=== PATIENT | male | born 1970 | race Caucasian/White ===

== ENCOUNTER 2020-06-26 14:29 | Emergency (ER) | payer OTHER, SELFPAY ==
[2020-06-26 14:42] VITALS: BP 143/88; PULSE 109; RESP 18; TEMP 36.7; O2SAT 98; BMI 24.2
--- NOTE | 2020-06-26 14:48 | HMH.EDUTC ---
[facility] [place] Clinical Impression: Encounter for laboratory testing for COVID-19 virus Allergic rhinitis Qualifiers: Allergic rhinitis trigger: unspecified Allergic rhinitis seasonality: unspecified Qualified Code(s): J30.9 - Allergic rhinitis, unspecified Disposition: Home, Self-Care Condition on Discharge: Good Instructions: Preventing the Spread of Coronavirus Discharge Instructions, DI for Allergic Rhinitis, Allergic Rhinitis, Loratadine, Fluticasone Nasal [place] Additional Instructions: *Monitor Temp, Over the counter Motrin or Tylenol as directed/as needed Tylenol every 4 hours and Motrin every 6 hours (as long as your family doctor has told you that you can take it) for fever or pain. and straight to ER if unable to lower temp less than 101.0 after medication given *Warm salt water gargles may help to soothe the throat *Throat Lozenges *Warm fluids like tea with honey may help to soothe the throat *Sleep elevated *Humidifier/Vaporizer *Flonase 2 sprays in each nostril daily but be aware that it may take 2-3 days before you notice improvement Follow up IMMEDIATELY for new or worsening symptoms or no Noticeable improvement over the next 48-72 hours. 911 for difficulty breathing or swallowing You was tested for today for COVID19 your test result should be back later this evening, you may call back later this evening to see if your test results are back and the result You was given a handout with instructions for Self Quarantine and Self isolation for while you wait on test results and what to do if they are positive Prescriptions: Loratadine [Claritin 10mg Tablet] 10 mg PO DAILY 30 Days #30 tab Prescription Printed Fluticasone Propionate [Flonase 50mcg nasal spray 16gm] 1 - 2 spr NS DAILY #1 bottle Prescription Printed Referrals: Adela Wharton [Primary Care Provider] - As needed Time of Disposition: 14:57 Medical Decision Making - [place]win Inquiry Pt receiving controlled substance: No [place]win was queried for this patient: No Vital Signs: 06/26/20 14:42 Temperature 98.0 F Temperature Source Oral Pulse Rate [Radial] 109 H Respiratory Rate 18 Blood Pressure [Right Arm] 143/88 H Blood Pressure Mean [Right Arm] 106 Blood Pressure Source [Right Arm] Automatic Cuff Blood Pressure Position [Right Arm] Sitting 02 Sat by Pulse Oximetry 98 Oxygen Delivery Method Room Air - Lab Data Lab results reviewed: Yes: I reviewed the patient's lab results. Orders (Tests/Meds): ORDERS Category Date Time Status Covid-19 Nasal PCR ([facility]) Routine Lab 06/26/20 14:40 Received [facility] [place] HPI - General Stated complaint: cough,headache,chills Time Seen by Provider: 06/26/20 14:48 Mode of Arrival: Ambulatory Source of Information: Patient Limitations: No Limitations Description of Symptoms (Recalled from Triage Doc. by RN): hastings, chills, wants covid test. HEENT Symptoms (Recalled from RN notes): Yes Resp Symptoms (Recalled from RN notes): No Skin Symptoms (Recalled from RN notes): No MS Symptoms (Recalled from RN notes): No Functional Status (Recalled from RN notes): wnl - History of Present Illness Provider Complaint: Patient states that he has been having headache, chills and dry scratchy sore throat States that he was worried that he may have COVID States that he was not sure if he had COVID or a head cold states that he has also had a headache on and off feeling some pressure in his ears. States that he has had clear drainage from his nose - Related Data Previous Rx's Medication Instructions Recorded Fluticasone Propionate [Flonase 1 - 2 spr NS DAILY #1 bottle 06/26/20 50mcg nasal spray 16gm] Loratadine [Claritin 10mg 10 mg PO DAILY 30 Days #30 tab 06/26/20 Tablet] Allergies Allergy/AdvReac Type Severity Reaction Status Date / Time UMKNOWN Allergy Unknown Uncoded 08/24/17 14:03 - Worker's Comp Is this a Worker's Comp case?: No [facility] History - Hepatitis A Screen Drug use hist
[2020-06-26 15:09] VITALS: BP 143/88; PULSE 109; RESP 18; TEMP 36.7; O2SAT 98
== END 2020-06-26 15:10 | disposition home or self-care (01) ==
PROVIDERS: Emergency Provider Nurse Practitioner; PCP Family Medicine
DX: Z20.828 Contact with and (suspected) exposure to other viral communicable diseases (principal); J30.9 Allergic rhinitis, unspecified; F17.210 Nicotine dependence, cigarettes, uncomplicated
CPT/HCPCS: 99201; U0003

== ENCOUNTER → 2021-06-18 12:40 | Outpatient (CLI) | payer OTHER, SELFPAY ==
--- NOTE | 2021-06-18 12:55 | MR_ITS ---
PROCEDURE: MR LUMBAR SPINE WO CON CLINICAL INDICATION: THORACIC, LUMBOSACRAL INTERVERTEBRAL DISC COMPARISON: CR [id number] LUMBAR SPINE 5 VIEWS from 05/23/2014 TECHNIQUE: Standard multiplanar multiecho sequences are performed without contrast. 3-D MIP and myelographic images are also rendered and reviewed FINDINGS: There is normal alignment. The spinal cord ends at the L2 level. There is slight reversal of the thorax sick/lumbar lordosis at the T12-L1 level. T11-T12: Mild facet hypertrophic change with mild bilateral foraminal narrowing. T12-L1: Minimal bulging disc with degenerative disc disease with canal stenosis at 10 mm. Minimal contour deformity anteriorly of the cord very slightly eccentric toward the right. Mild endplate irregularity L1-L2: Endplate irregularity of the inferior aspect of L1 L2-L3: Mild facet hypertrophic change. Minimal left lateral recess narrowing. L3-L4: Minimal bulging disc with facet and ligamentum hypertrophy with mild bilateral recess narrowing. L4-5: Moderate facet and ligamentum hypertrophic change with mild bilateral lateral recess narrowing and moderate bilateral foraminal narrowing. L5-S1: Degenerative disc disease with bulging disc and facet hypertrophic change with moderate to severe right foraminal narrowing and severe left-sided foraminal narrowing. Sagittal images demonstrates both right and left foraminal and lateral disc protrusions causing impingement upon the exiting L5 nerve roots and contributing to the foraminal narrowing. This is slightly more prominent on the left. There are type 2 endplate changes at this level and there is moderate anterior bulging of the disc as well. IMPRESSION: Abnormal MRI of the lumbar spine with multilevel lumbar spondylosis with resulting canal stenosis which is at T12-L1 and multilevel foraminal and lateral recess narrowing most severe at L5-S1. Please see above for detailed description at each level. Dictated by: Tristan Myers MD 06/19/2021 08:49 Tristan Myers MD in [place] 06/19/2021 08:49
== END ==
PROVIDERS: PCP Family Medicine; Visit Provider Nurse Practitioner Family
DX: M51.15 Intervertebral disc disorders with radiculopathy, thoracolumbar region (principal); M51.17 Intervertebral disc disorders with radiculopathy, lumbosacral region
CPT/HCPCS: 72148; 76376

== ENCOUNTER → 2021-10-14 11:59 | Outpatient (CLI) | payer OTHER, SELFPAY ==
[2021-10-15 08:29] LABS: Covid-19 Nasal PCR Sendout Lex NOT DETECTED
== END ==
PROVIDERS: Visit Provider Nurse Practitioner
DX: Z20.822 Contact with and (suspected) exposure to COVID-19 (principal)
CPT/HCPCS: C9803; U0004; U0005

== ENCOUNTER 2025-03-12 11:42 | Inpatient (IN) | payer OTHER, SELFPAY ==
[2025-03-12] VITALS (21 sets, daily range): BP systolic 98–126; BP diastolic 65–87; PULSE 68–106; RESP 15–24; TEMP 36.6–36.7; O2SAT 90–100; BMI 25.0
--- NOTE | 2025-03-12 11:39 | ECG_ITS ---
APPROVED REPORT Exam: Resting ECG HR:77 bpm ECG Measurements Heart Rate 77 AXES TN 153 P 74 QRSd 91 QRS -26 QT 434 T 62 QTc 466 Conclusion SINUS RHYTHM WITH OCCASIONAL VENTRICULAR PREMATURE COMPLEXES ANTEROSEPTAL MYOCARDIAL INFARCTION , OF INDETERMINATE AGE [40+ ms Q WAVE IN V1-V4] ABNORMAL ECG Electronically signed by : MARKO FORTE, 03/13/2025 08:38:50
--- NOTE | 2025-03-12 11:42 | XR_ITS ---
FINAL REPORT CLINICAL HISTORY: Chest/epigastric ABD pain COMPARISON: None FINDINGS: CHEST 1 VIEW The heart size is normal. The mediastinum is normal. There is no focal infiltrate or edema. There are no pleural effusions. There is no pneumothorax. There is no osseous abnormality. IMPRESSION: No acute cardiopulmonary process Reviewed, Interpreted and Dictated by Adilson Devries MD Transcribed by Paty Choi Authenticated and [facility]
--- NOTE | 2025-03-12 11:42 | ED_ITS ---
<Statement entered by Erma Jacobson DO - 03/12/25 15:43> I was consulted by the JONI, and we discussed the complexity of the problems being addressed. I approved the treatment and management plan for this patient's care in the emergency department, thus performing a substantive portion of the medical decision making. I had an interactive discussion with Dr. Lundberg with cardiology given EKG changes, though no acute STEMI, and elevated troponin. This story that the patient gives this for her symptoms is also very concerning. He elected to take the patient to [employer] [facility] [facility] emergently Erma Jacobson DO Discharge Plan Disposition Patient Disposition: Admitted Condition: Fair Clinical Impressions Clinical Impression: Acute non-ST elevation myocardial infarction (NSTEMI) Discharge ED Provider: Erma Jacobson General Adult HPI <ALBA Slaughter - Last Filed: 03/12/25 14:38> General Chief complaint: Chest Pain Stated complaint: Acid Reflux Time Seen by Provider: 03/12/25 11:44 History of Present Illness HPI narrative: Patient presents for evaluation of chest pain. Patient states that he acutely began having chest pain located substernally/epigastrically last night however it went away. Said it lasted for several hours. However when he woke up this morning around 9 it was back and has been persistent all day. Patient reports that he does not have a known cardiovascular history but does have a history of COPD GERD alcohol abuse seasonal allergies chronic pain. He states the pain does not radiate and is making him nauseous. He reports that he was recently incarcerated and been off of all of his medications for the last 2 weeks. Last drink was prior to his incarceration. He denies any fever chills hemoptysis hematochezia melena shortness of breath vomiting or diarrhea. Related Data Home Medications ?Medication ?Instructions ?Recorded ?Confirmed albuterol sulfate 90 mcg/actuation 2 puff inhalation Q 4HP PRN 03/12/25 03/12/25 aerosol inhaler (Ventolin HFA) Shortness Of Breath budesonide-formoterol HFA 160 2 puff inhalation BID 03/12/25 mcg-4.5 mcg/actuation aerosol inhaler (Symbicort) cyclobenzaprine 10 mg tablet 10 mg PO BIDP PRN Back Pa in 03/12/25 03/12/25 duloxetine 30 mg capsule,delayed 30 mg PO DAILY 03/12/25 release fluticasone propionate 50 1 spray intranasal DAILY 03/3003/12/25 mcg/actuation nasal spray,suspension mirtazapine 30 mg tablet 30 mg PO HS 03/12/25 5 omeprazole 20 mg capsule,delayed 20 mg PO DAILY 03/12/25 release paroxetine HCl 10 mg tablet 10 mg PO DAILY 03/12/25 Allergies Allergy/AdvReac Type Severity Reaction Status Date / Time No Known Allergies Allergy Verified 03/12/25 11:56 [facility] <ALBA Slaughter - Last Filed: 03/12/25 14:38> [facility] Disclaimer: The information contained in this section may have been updated after the patient was seen, as this information can be updated by other users. Social History Smoking Status: Current every day smoker tobacco type: cigarettes packs per day: 1 second hand exposure: Yes alcohol intake: never current occupational status: employed Travel in the last 8 weeks?: None Have you lived/traveled outside [place] in past 30 days?: No Contact w/someone who lives/traveled outside [place] past 30 days?: No Exposure to someone with infectious disease in past 14 days?: No Do you have a fever (greater than 100.4 F or 38 C)?: No Have you tested positive for COVID-19?: No Exposed to someone with COVID-19 in past 14 days?: No Do you have a sore throat?: No Do you have a cough?: No Do you have any weakness?: No Do you have any diarrhea?: No Are you experiencing any unusual bleeding?: No Do you have any muscle aches/pain?: No Do you have any abdominal pain?: No Are you experiencing loss of taste or smell?: No <ALBA Slaughter - Last Filed: 03/12/25 14:38> ROS Obtained: Yes Systems reviewed as appropriate & no additional complaints except as documented Physical Exam <ALBA Slaughter - Last Filed: 03/12/25 14:38> General General appearance: alert Respiratory Respiratory exam: Present normal lung sounds bilaterally Cardiovascular Cardiovascular exam: Present regular rate Neurological Exam Neurological exam: Present alert and oriented X3 Medical Decision Making <ALBA Slaughter - Last Filed: 03/12/25 14:38> Medical Records Medical records reviewed: Yes I reviewed the patient's medical records. Screening: Per USPSTF and CDC recommendations, given the prevalence of disease in our region, it is our hospital?s policy to screen for HIV and viral Hepatitis for all patients aged 18 and over and those with ongoing risk factors. [facility] Inquiry Pt receiving controlled substance: No Vital Signs: 03/12/25 11:49 03/12/25 12:39 Temperature 97.8 F 98.0 F Temperature Source Oral Oral Pulse Rate 68 Pulse Rate [Right] 76 Respiratory Rate 16 20 Blood Pressure 121/81 Blood Pressure [Right Arm] 103/66 L Blood Pressure Mean [Right Arm] 78 Blood Pressure Source Automatic Cuff Blood Pressure Source [Right Arm] Automatic Cuff Blood Pressure Position [Right Arm] Sitting 02 Sat by Pulse Oximetry 98 Oxygen Delivery Method Room Air Nasal Cannula Lab Data Lab results reviewed: Yes I reviewed the patient's lab results. Lab Results 03/12/25 13:29: Activated Clotting Time 338 H* 03/12/25 Unknown 03/12/25 Unknown Orders (Tests/Meds): ED MEDICATIONS Generic Name Dose Route Start Last Admin Trade Name Freq PRN Reason Stop Dose Admin Acetaminophen 650 mg 03/12/25 13:58 Acetaminophen 325mg Tab PO 04/11/25 13:57 Q4HP PRN Fever or Mild Pain (1-3) Hydrocodone Bitart/Acetaminophen 1 tab 03/12/25 13:58 Hydrocodone/Apap 5/325 Mg Tablet PO 04/11/25 13:57 Q4HP PRN Moderate Pain (4-6) Hydrocodone Bitart/Acetaminophen 2 tab 03/12/25 13:58 Hydrocodone/Apap 5/325 Mg Tablet PO 04/11/25 13:57 Q4HP PRN Severe Pain (7-10) Aspirin 81 mg 03/13/25 09:00 Aspirin Ec 81mg Tablet PO 04/12/25 08:59 DAILY ALFREDO Diazepam 5 mg 03/12/25 12:31 Diazepam 5mg Tablet PO 03/13/25 00:31 ONCE PRN Anxiety Enoxaparin Sodium 40 mg 03/13/25 09:00 Enoxaparin 40mg/0.4ml Syringe SUBCUT 04/12/25 08:59 DAILY ALFREDO Fentanyl Citrate 50 mcg 03/12/25 12:31 Fentanyl 100mcg/2ml Vial IV 03/13/25 00:31 Q3MINP PRN Sedation Fentanyl Citrate 25 mcg 03/12/25 12:31 Fentanyl 100mcg/2ml Vial IV 03/13/25 00:31 Q3MINP PRN Sedation Flumazenil 0.2 mg 03/12/25 12:31 Flumazenil 0.1mg/Ml 5ml Vial IV 03/13/25 00:31 NEEDED PRN Sedation Heparin Sodium (Porcine) 5,000 unit 03/12/25 12:31 Heparin 1,000 Units/Ml 10ml Vial ([employer]) IV 03/12/25 16:31 NEEDED PRN [employer] Hydralazine HCl 20 mg 03/12/25 12:31 Hydralazine 20mg/Ml Vial IV 03/12/25 16:31 ONCE PRN sbp>160 Adenosine 180 mg/ Sodium 90 mls @ 391.905 mls/hr 03/12/25 12:31 Chloride IV 03/12/25 16:31 ONCE PRN fractional flow reserve 180 MCG/KG/MIN Adenosine 90 mg/ Sodium 90 mls @ 783.81 mls/hr 03/12/25 12:31 Chloride IV 03/12/25 16:31 ONCE PRN fractional flow reserve 180 MCG/KG/MIN Sodium Chloride 1,000 mls @ 25 mls/hr 03/12/25 12:45 Sod Chloride 0.9% 500ml Bag IV 03/13/25 12:31 .Q25H [facility] Iopamidol 225 ml 03/12/25 14:27 03/12/25 14:28 Iopamidol-370 (76%);100ml Bottle IV 03/12/25 14:28 225 ml ONCE ONE Administration Labetalol HCl 20 mg 03/12/25 12:31 Labetalol 20mg/4ml Syringe IV 03/12/25 16:31 ONCE PRN sbp>160 Lorazepam 1 mg 03/12/25 12:31 Lorazepam 2mg/Ml Vial IV 03/13/25 00:31 ONCE PRN Anxiety Midazolam HCl 1 mg 03/12/25 12:31 Midazolam 2mg/2ml Vial IV 03/13/25 00:31 Q3MINP PRN Sedation Midazolam HCl 1 mg 03/12/25 12:31 Midazolam Hcl 1mg/Ml 5ml Vial IV 03/13/25 00:31 Q3MINP PRN Sedation Miscellaneous 1 each 03/12/25 13:58 Consider Pt For Dual Antiplatelet Therapy At Discharge-Stent NOTAPPLIC 04/11/25 13:57 NEEDED PRN Reminder for s/p stent Naloxone HCl 0.4 mg 03/12/25 12:31 Naloxone 0.4mg/Ml Vial IV 03/13/25 00:31 Q5MINP PRN Decreased Respirations Nicotine 21 mg 03/12/25 14:05 Nicotine 21mg/24hr Patch TD 04/11/25 14:04 DAILYP PRN Nicotine Cravings Nitroglycerin 800 mcg 03/12/25 12:31 Nitroglycerin 800mcg/8ml Syr ([employer]) IA 03/12/25 16:31 NEEDED PRN [employer] Nitroglycerin 0.4 mg 03/12/25 13:58 Nitroglycerin 0.4mg Sl Tablet SL 04/11/25 13:57 Q5MINP PRN Chest Pain Ondansetron HCl 4 mg 03/12/25 12:31 Ondansetron 4mg/2ml Vial IV 03/13/25 00:31 NEEDED PRN Nausea Prasugrel 10 mg 03/13/25 09:00 Prasugrel 10mg Tab PO 04/12/25 08:59 DAILY ALFREDO Promethazine HCl 25 mg 03/12/25 12:31 Promethazine Hcl 25mg/Ml 1ml Vial IV 03/13/25 00:31 NEEDED PRN Nausea And Vomiting Protamine Sulfate 50 mg 03/12/25 12:31 Protamine Sulfate 50mg/5ml Vial ([employer]) IV 03/12/25 16:31 ONCE PRN act>200 Sodium Chloride 10 ml 03/12/25 12:31 Sodium Chloride 0.9% 10ml Vial IV 04/11/25 12:30 NEEDED PRN to Dilute Lorazepam inj Discontinued Medications Generic Name Dose Route Start Last Admin Trade Name Freq PRN Reason Stop Dose Admin Acetaminophen 1,000 mg 03/12/25 11:42 03/12/25 11:55 Acetaminophen 500mg Tab PO 03/12/25 11:43 1,000 mg ONCE ONE Administration Acetaminophen 650 mg 03/12/25 14:05 Acetaminophen 325mg Tab PO 04/11/25 14:04 Q4HP PRN Fever or Mild Pain (1-3) Belladonna Alkaloids 60 ml 03/12/25 11:46 03/12/25 11:56 Belladonna Alkaloids 60 Ml Ml PO 03/12/25 11:47 60 ml ONCE ONE Administration Diphenhydramine HCl 50 mg 03/12/25 12:31 Diphenhydramine 50mg/Ml Vial IV 03/12/25 12:32 ONCE ONE Heparin Sodium/Sodium Chloride 3,000 unit 03/12/25 12:31 Heparin 1,000 Units/500ml Ns ([employer]) IV 03/12/25 12:32 ONCE ONE Ketorolac Tromethamine 15 mg 03/12/25 11:42 03/12/25 11:55 Ketorolac 30mg/Ml Vial IV 03/12/25 11:43 15 mg ONCE ONE Administration Lidocaine HCl 10 ml 03/12/25 12:31 Lidocaine 1% 10ml Mdv IJ 03/12/25 12:32 ONCE ONE Lidocaine HCl 10 ml 03/12/25 12:31 Lidocaine 1% 5ml Pf Vial IJ 03/12/25 12:32 ONCE ONE Morphine Sulfate 4 mg 03/12/25 12:31 Morphine 4mg/Ml Syringe IV 03/12/25 12:32 ONCE ONE Prasugrel 60 mg 03/12/25 14:00 03/12/25 14:01 Prasugrel 10mg Tab PO 03/12/25 14:01 60 mg ONCE ONE Administration Promethazine HCl 12.5 mg 03/12/25 12:00 03/12/25 12:04 Promethazine Hcl 25mg/Ml 1ml Vial IV 03/12/25 12:01 12.5 mg ONCE ONE Administration Sodium Chloride 25 ml 03/12/25 12:00 03/12/25 12:04 Sodium Chloride 0.9% 25ml Bag IV 03/12/25 12:01 25 ml ONCE ONE Administration Sodium Chloride 25 ml 03/12/25 12:31 Sodium Chloride 0.9% 25ml Bag IV 03/12/25 12:32 ONCE ONE Verapamil HCl 2.5 mg 03/12/25 12:31 Verapamil 2.5mg/Ml 2ml Vial IV 03/12/25 12:32 ONCE ONE ORDERS Category Date Time Status Cardiology Consult [Consult to Cardiology] [CONS] Cons 03/12/25 12:29 Active Routine Consult to Cardiac Rehabilitation [CONS] Routine Cons 03/12/25 13:55 Active Chest XR -- portable [XR chest portable] Stat Exams 03/12/25 11:42 Completed BNP [NT Pro Brain Natriuretic Pep.] Stat Lab 03/12/25 Completed CBC w/Auto Diff [Complete Blood Count Auto Diff] Stat Lab 03/12/25 Completed CMP [Comprehensive Metabolic Panel] Stat Lab 03/12/25 Completed Complete Blood Count Auto Diff AMLAB Lab 03/13/25 06:00 Ordered D-Dimer Stat Lab 03/12/25 Completed HIV Combo Stat Lab 03/12/25 Received Hepatitis C Ab Qual. W/ RFX Stat Lab 03/12/25 Received INR [Prothrombin Time INR] Stat Lab 03/12/25 Completed Lipase Stat Lab 03/12/25 Completed Magnesium Stat Lab 03/12/25 Completed Trop I [Troponin I] Stat Lab 03/12/25 Completed Troponin I Q3H Lab 03/12/25 14:45 Ordered Troponin I Q3H Lab 03/12/25 17:45 Ordered ECG Request NEEDED Y 03/12/25 14:00 Ordered HEART Score History (anamnesis): Moderately suspicious ECG: Non-specific disturbance Age: 45-65 years Risk factors: 3 or more risk factors Troponin: > 3x normal limit HEART Score: 7 Medical Decision Narrative: In summary patient is a 54-year-old male who presents to the emergency department for evaluation of chest pain. Patient is initially stable but with a blood pressure 103/66 heart rate 76 with normal sinus rhythm on the bedside monitor breathing 16 times a minute satting 98% on room air upon arrival, afebrile at 97.8. Physical exam is remarkable for clear breath sounds to auscultation in all 4 hancock no increased work of breathing, patient has no chest wall tenderness to palpation however he is tender to palpation in the epigastrium. The remainder of the abdomen is soft nontender no rebound or guarding no rigidity. Heart sounds are S1 is 2 regular rate and rhythm without murmurs gallops rubs or thrills.. Differential diagnosis includes ACS versus esophagitis versus GERD versus ulcer versus pancreatitis versus cholelithiasis etc. Initial workup will be conducted with hematologic labs twelve-lead EKG plain film chest x-ray. Initial interventions include Toradol Tylenol crystalloid bolus and GI cocktail. Patient received Zofran aspirin and statin via EMS. Initial workup reviewed by me and my informal interpretation of his plain film chest x-ray shows no evidence of acute pulmonary process prior to radiology read. Please see final read for formal interpretation. Twelve-lead EKG shows normal sinus rhythm with Q waves that appear to be old. There does not appear to be ST elevation. Hematologic labs significant for white count of 13.4 hemoglobin hematocrit 13.7 and 40.4 respectively with an absolute neutrophil count of 10.8, INR 1.03. D-dimer 0.58, glucose 145 AST 75 troponin is 1.35 NT proBNP is 380 total protein 5.9. Given these findings Dr. Jacobson had interactive discussion with Dr. Lundberg regarding patient presentation BRYANT and management and Dr. Lundberg has activated the [employer] and will taking him for emergent heart cath. STEMI protocol was ordered however at this point he is considered high risk NSTEMI. <Erma Jacobson, DO - Last Filed: 03/12/25 12:37> Vital Signs: 03/12/25 11:49 03/12/25 12:39 Temperature 97.8 F 98.0 F Temperature Source Oral Oral Pulse Rate 68 Pulse Rate [Right] 76 Respiratory Rate 16 20 Blood Pressure 121/81 Blood Pressure [Right Arm] 103/66 L Blood Pressure Mean [Right Arm] 78 Blood Pressure Source Automatic Cuff Blood Pressure Source [Right Arm] Automatic Cuff Blood Pressure Position [Right Arm] Sitting 02 Sat by Pulse Oximetry 98 Oxygen Delivery Method Room Air Nasal Cannula Lab Data Lab Results 03/12/25 13:29: Activated Clotting Time 338 H* Orders (Tests/Meds): ED MEDICATIONS Generic Name Dose Route Start Last Admin Trade Name Freq PRN Reason Stop Dose Admin Acetaminophen 650 mg 03/12/25 13:58 Acetaminophen 325mg Tab PO 04/11/25 13:57 Q4HP PRN Fever or Mild Pain (1-3) Hydrocodone Bitart/Acetaminophen 1 tab 03/12/25 13:58 Hydrocodone/Apap 5/325 Mg Tablet PO 04/11/25 13:57 Q4HP PRN Moderate Pain (4-6) Hydrocodone Bitart/Acetaminophen 2 tab 03/12/25 13:58 Hydrocodone/Apap 5/325 Mg Tablet PO 04/11/25 13:57 Q4HP PRN Severe Pain (7-10) Aspirin 81 mg 03/13/25 09:00 Aspirin Ec 81mg Tablet PO 04/12/25 08:59 DAILY ALFREDO Diazepam 5 mg 03/12/25 12:31 Diazepam 5mg Tablet PO 03/13/25 00:31 ONCE PRN Anxiety Enoxaparin Sodium 40 mg 03/13/25 09:00 Enoxaparin 40mg/0.4ml Syringe SUBCUT 04/12/25 08:59 DAILY [facility] Fentanyl Citrate 50 mcg 03/12/25 12:31 Fentanyl 100mcg/2ml Vial IV 03/13/25 00:31 Q3MINP PRN Sedation Fentanyl Citrate 25 mcg 03/12/25 12:31 Fentanyl 100mcg/2ml Vial IV 03/13/25 00:31 Q3MINP PRN Sedation Flumazenil 0.2 mg 03/12/25 12:31 Flumazenil 0.1mg/Ml 5ml Vial IV 03/13/25 00:31 NEEDED PRN Sedation Heparin Sodium (Porcine) 5,000 unit 03/12/25 12:31 Heparin 1,000 Units/Ml 10ml Vial ([employer]) IV 03/12/25 16:31 NEEDED PRN [employer] Hydralazine HCl 20 mg 03/12/25 12:31 Hydralazine 20mg/Ml Vial IV 03/12/25 16:31 ONCE PRN sbp>160 Adenosine 180 mg/ Sodium 90 mls @ 391.905 mls/hr 03/12/25 12:31 Chloride IV 03/12/25 16:31 ONCE PRN fractional flow reserve 180 MCG/KG/MIN Adenosine 90 mg/ Sodium 90 mls @ 783.81 mls/hr 03/12/25 12:31 Chloride IV 03/12/25 16:31 ONCE PRN fractional flow reserve 180 MCG/KG/MIN Sodium Chloride 1,000 mls @ 25 mls/hr 03/12/25 12:45 Sod Chloride 0.9% 500ml Bag IV 03/13/25 12:31 .Q25H [facility] Iopamidol 225 ml 03/12/25 14:27 03/12/25 14:28 Iopamidol-370 (76%);100ml Bottle IV 03/12/25 14:28 225 ml ONCE ONE Administration Labetalol HCl 20 mg 03/12/25 12:31 Labetalol 20mg/4ml Syringe IV 03/12/25 16:31 ONCE PRN sbp>160 Lorazepam 1 mg 03/12/25 12:31 Lorazepam 2mg/Ml Vial IV 03/13/25 00:31 ONCE PRN Anxiety Midazolam HCl 1 mg 03/12/25 12:31 Midazolam 2mg/2ml Vial IV 03/13/25 00:31 Q3MINP PRN Sedation Midazolam HCl 1 mg 03/12/25 12:31 Midazolam Hcl 1mg/Ml 5ml Vial IV 03/13/25 00:31 Q3MINP PRN Sedation Miscellaneous 1 each 03/12/25 13:58 Consider Pt For Dual Antiplatelet Therapy At Discharge-Stent NOTAPPLIC 04/11/25 13:57 NEEDED PRN Reminder for s/p stent Naloxone HCl 0.4 mg 03/12/25 12:31 Naloxone 0.4mg/Ml Vial IV 03/13/25 00:31 Q5MINP PRN Decreased Respirations Nicotine 21 mg 03/12/25 14:05 Nicotine 21mg/24hr Patch TD 04/11/25 14:04 DAILYP PRN Nicotine Cravings Nitroglycerin 800 mcg 03/12/25 12:31 Nitroglycerin 800mcg/8ml Syr ([employer]) IA 03/12/25 16:31 NEEDED PRN [employer] Nitroglycerin 0.4 mg 03/12/25 13:58 Nitroglycerin 0.4mg Sl Tablet SL 04/11/25 13:57 Q5MINP PRN Chest Pain Ondansetron HCl 4 mg 03/12/25 12:31 Ondansetron 4mg/2ml Vial IV 03/13/25 00:31 NEEDED PRN Nausea Prasugrel 10 mg 03/13/25 09:00 Prasugrel 10mg Tab PO 04/12/25 08:59 DAILY ALFREDO Promethazine HCl 25 mg 03/12/25 12:31 Promethazine Hcl 25mg/Ml 1ml Vial IV 03/13/25 00:31 NEEDED PRN Nausea And Vomiting Protamine Sulfate 50 mg 03/12/25 12:31 Protamine Sulfate 50mg/5ml Vial ([employer]) IV 03/12/25 16:31 ONCE PRN act>200 Sodium Chloride 10 ml 03/12/25 12:31 Sodium Chloride 0.9% 10ml Vial IV 04/11/25 12:30 NEEDED PRN to Dilute Lorazepam inj Discontinued Medications Generic Name Dose Route Start Last Admin Trade Name Marcin PRN Reason Stop Dose Admin Acetaminophen 1,000 mg 03/12/25 11:42 03/12/25 11:55 Acetaminophen 500mg Tab PO 03/12/25 11:43 1,000 mg ONCE ONE Administration Acetaminophen 650 mg 03/12/25 14:05 Acetaminophen 325mg Tab PO 04/11/25 14:04 Q4HP PRN Fever or Mild Pain (1-3) Belladonna Alkaloids 60 ml 03/12/25 11:46 03/12/25 11:56 Belladonna Alkaloids 60 Ml Ml PO 03/12/25 11:47 60 ml ONCE ONE Administration Diphenhydramine HCl 50 mg 03/12/25 12:31 Diphenhydramine 50mg/Ml Vial IV 03/12/25 12:32 ONCE ONE Heparin Sodium/Sodium Chloride 3,000 unit 03/12/25 12:31 Heparin 1,000 Units/500ml Ns ([employer]) IV 03/12/25 12:32 ONCE ONE Ketorolac Tromethamine 15 mg 03/12/25 11:42 03/12/25 11:55 Ketorolac 30mg/Ml Vial IV 03/12/25 11:43 15 mg ONCE ONE Administration Lidocaine HCl 10 ml 03/12/25 12:31 Lidocaine 1% 10ml Mdv IJ 03/12/25 12:32 ONCE ONE Lidocaine HCl 10 ml 03/12/25 12:31 Lidocaine 1% 5ml Pf Vial IJ 03/12/25 12:32 ONCE ONE Morphine Sulfate 4 mg 03/12/25 12:31 Morphine 4mg/Ml Syringe IV 03/12/25 12:32 ONCE ONE Prasugrel 60 mg 03/12/25 14:00 03/12/25 14:01 Prasugrel 10mg Tab PO 03/12/25 14:01 60 mg ONCE ONE Administration Promethazine HCl 12.5 mg 03/12/25 12:00 03/12/25 12:04 Promethazine Hcl 25mg/Ml 1ml Vial IV 03/12/25 12:01 12.5 mg ONCE ONE Administration Sodium Chloride 25 ml 03/12/25 12:00 03/12/25 12:04 Sodium Chloride 0.9% 25ml Bag IV 03/12/25 12:01 25 ml ONCE ONE Administration Sodium Chloride 25 ml 03/12/25 12:31 Sodium Chloride 0.9% 25ml Bag IV 03/12/25 12:32 ONCE ONE Verapamil HCl 2.5 mg 03/12/25 12:31 Verapamil 2.5mg/Ml 2ml Vial IV 03/12/25 12:32 ONCE ONE ORDERS Category Date Time Status Cardiology Consult [Consult to Cardiology] [CONS] Cons 03/12/25 12:29 Active Routine Consult to Cardiac Rehabilitation [CONS] Routine Cons 03/12/25 13:55 Active Chest XR -- portable [XR chest portable] Stat Exams 03/12/25 11:42 Completed BNP [NT Pro Brain Natriuretic Pep.] Stat Lab 03/12/25 Completed CBC w/Auto Diff [Complete Blood Count Auto Diff] Stat Lab 03/12/25 Completed CMP [Comprehensive Metabolic Panel] Stat Lab 03/12/25 Completed Complete Blood Count Auto Diff AMLAB Lab 03/13/25 06:00 Ordered D-Dimer Stat Lab 03/12/25 Completed HIV Combo Stat Lab 03/12/25 Received Hepatitis C Ab Qual. W/ RFX Stat Lab 03/12/25 Received INR [Prothrombin Time INR] Stat Lab 03/12/25 Completed Lipase Stat Lab 03/12/25 Completed Magnesium Stat Lab 03/12/25 Completed Trop I [Troponin I] Stat Lab 03/12/25 Completed Troponin I Q3H Lab 03/12/25 14:45 Ordered Troponin I Q3H Lab 03/12/25 17:45 Ordered ECG Request NEEDED Y 03/12/25 14:00 Ordered ECG Data Tracing #1: I reviewed this ECG and interpreted as documented below: Normal sinus rhythm with a ventricular rate of [address]/T wave changes in the anterior leads without acute STEMI. Q wave is present in the anterior leads ECG initial impression date: 03/12/25 ECG initial impression time: 11:42 Critical Care <ALBA Slaughter - Last Filed: 03/12/25 14:38> Critical Care Time Critical Care Time: Yes Attestation: On 03/12/25, the high probability of a clinically significant, sudden or life threatening deterioration of the following system(s) required my full and direct attention, intervention and personal management. The time I documented below is in addition to time spent performing reported procedures but includes the following listed in this critical care notation. Total Time Total Critical Care Time: 30
[2025-03-12 11:50] LABS: Hematocrit 40.4 % (42.0-52.0); Hemoglobin 13.7 g/dL (14.1-18.0); Immature Granulocytes % 1.0 %; Mean Corpuscular HGB Conc 33.9 g/dL (31.8-35.4); Mean Corpuscular Hemoglobin 30.4 pg (27.0-31.2); Mean Corpuscular Volume 89.8 fl (80-94); Nucleated Red Blood Cells % 0 %; Platelet Count 255 K/mm3 (142-424); Red Blood Count 4.50 M/mm3 (4.60-6.20); Red Cell Distribution Width-SD 42.7 fL; White Blood Count 13.4 K/mm3 (4.8-10.8)
[2025-03-12] MEDS: KETOROLAC 30MG/ML VIAL 15 MG IV (11:55)
[2025-03-12] MEDS: ACETAMINOPHEN 500MG TAB 1000 MG PO (11:55)
[2025-03-12] MEDS: BELLADONNA ALKALOIDS 60 ML ML PO (11:56)
[2025-03-12 12:00] LABS: INR 1.03 (0.9-1.1); Prothrombin Time 11.4 seconds (10.1-12.5)
--- OUTSIDE RECORDS SUMMARY | 2025-03-12 12:03 | XMS_ITS | Data Portability ---
Author Organization [facility] Address [address] [address] Assessment No assessment recorded. Plan of Treatment Reminders Order Date Submit Date Provider Last Modified By Organization Details Last Modified Time Details Appointments None recorded. Lab drug screen, urine 2024 025 [place] [facility]), [address] [place], [address], 5 15:07:27 unlisted lab - gabapentin, urine 2024 025 [place] [facility]), [address] [facility], [place], [address], 5 15:07:27 lipid panel, serum 2023 024 [facility], [address], [place], [address], 4 06:50:58 CMP, serum or plasma 2023 024 [facility], [address], [place], [address], 4 06:50:59 RPR (rapid plasma reagin), serum 2023 024 [facility], [address], [place], [address], 4 06:51:03 drug screen, urine 2023 024 [place] [facility], [address], [place], [address], 4 13:47:47 CBC w/ auto diff 2023 024 [place] [facility], [address], [place], [address], 4 06:51:00 PSA, serum or plasma 2023 024 [place] [facility], [address], [place], [address], 4 06:51:02 hepatitis C virus Ab, serum 2023 024 [facility], [address], [place], [address], 4 06:51:01 HIV 1+2 Ab + HIV1 p24 Ag, quantitativ e immunoassay , serum 2023 024 [place] [facility], [address], [place], [address], 4 06:51:01 Referral None recorded. Procedures None recorded. Surgeries None recorded. Imaging None recorded. Medication Orders omeprazole 20 mg capsule,del ayed release 2024 025 [facility], [address] [place] [address], [address], 5 15:34:16 Remeron 30 mg tablet 2024 025 [facility], [address] [place] [address], [address], 5 17:34:02 paroxetine 10 mg tablet 2024 025 [facility], [address] [place] [address], [address], 5 17:34:03 Symbicort 160 mcg-4.5 mcg/actuati on HFA aerosol inhaler 2024 025 [facility], [address] [place] [address], [address], 5 17:34:03 ProAir HFA 90 mcg/actuati on aerosol inhaler 2024 025 [facility], [address] [place] [address], [address], 5 17:34:01 omeprazole 20 mg capsule,del ayed release 2023 024 [facility], [address] [place] [address], [address], 4 17:58:47 Remeron 30 mg tablet 2023 024 [facility], [address] [place] [address], [address], 4 12:16:52 paroxetine 10 mg tablet 2023 024 [facility], [address] [place] [address], [address], 4 12:16:52 Symbicort 160 mcg-4.5 mcg/actuati on HFA aerosol inhaler 2023 024 [facility], [address] [place] [address], [address], 4 12:16:51 ProAir HFA 90 mcg/actuati on aerosol inhaler 2023 024 [facility], [address] [place] [address], [address], 4 12:16:53 cyclobenzap rine 10 mg tablet 2023 024 [facility], [facility] [place], [address], 4 12:16:50 gabapentin 300 mg capsule 2023 024 [facility], [facility] [place], [address], 4 17:58:47 omeprazole 20 mg capsule,del ayed release 2023 024 [facility], [address] [place], [address], 4 11:50:40 Remeron 30 mg tablet 2023 024 [facility], [address] [place], [address], 4 12:34:49 paroxetine 10 mg tablet 2023 024 [facility], [address] [place], [address], 4 12:34:48 Symbicort 160 mcg-4.5 mcg/actuati on HFA aerosol inhaler 2023 024 [facility], [address] [place], [address], 4 15:28:20 ProAir HFA 90 mcg/actuati on aerosol inhaler 2023 024 [facility], [address] [place], [address], 4 12:34:47 cyclobenzap rine 10 mg tablet 2023 024 [facility], [address] [place] [facility] [place], [address], 4 12:34:49 omeprazole 20 mg capsule,del ayed release 2023 024 [place] [facility], [address], [place], [address], 4 17:18:08 Zofran 4 mg tablet 2023 024 [email or web address], [address], [place], [address], 5 14:21:44 Remeron 30 mg tablet 2023 024 [place] [facility], [address], [place], [address], 4 16:01:51 paroxetine 10 mg tablet 2023 024 [place] [facility], [address], [place], [address], 4 16:01:52 Symbicort 160 mcg-4.5 mcg/actuati on HFA aerosol inhaler 2023 024 [place] [facility], [address], [place], [address], 4 16:01:53 ProAir HFA 90 mcg/actuati on aerosol inhaler 2023 024 [place] [facility], [address], [place], [address], 4 16:01:50 cyclobenzap rine 10 mg tablet 2023 024 [place] [facility], [address], [place], [address], 4 16:01:54 Flonase Allergy Relief 50 mcg/actuati on nasal spray,suspe nsion 2023 024 [place] [facility], [address], [place], [address], 4 16:01:51 omeprazole 20 mg capsule,del ayed release 2022 023 [place] [facility], [address], [place], [address], 3 14:01:17 Remeron 30 mg tablet 2022 023 [place] [facility], [address], [place], [address], 3 14:01:12 ProAir HFA 90 mcg/actuati on aerosol inhaler 2022 023 [place] [facility], [address], [place], [address], 3 14:01:10 Symbicort 160 mcg-4.5 mcg/actuati on HFA aerosol inhaler 2022 023 [place] [facility], [address], [place], [address], 3 14:01:15 cyclobenzap rine 10 mg tablet 2022 023 [place] [facility], [address], [place], [address], 3 14:01:20 duloxetine 30 mg capsule,del ayed release 2022 023 [email or web address], [address], [place], [address], 4 16:25:11 Patient TargetsNo targets recorded. Patient InstructionsNo instructions recorded. Reason for Referral None Reported. Results Created Date Observation Date Name Description Value Unit Range Abnormal Flag Note LastModifiedBy Organization Detail LastModifiedTime 01/18/20 24 01/19/2024 LIPID PANEL , STAND NABILA cholesterol, total 196 mg/dL <200 normal Not Available [facility] [place] [facility] [address] [facility], [place], [address], 01/19/2024 11:02:26 01/18/20 24 01/19/2024 LIPID PANEL , STAND NABILA HDL cholesterol 61 mg/dL > or = 40 normal Not Available [facility] [place] [facility] [address] [facility], [place], [address], 01/19/2024 11:02:26 01/18/20 24 01/19/2024 LIPID PANEL , STAND NABILA triglyceride s 78 mg/dL <150 normal Not Available [facility] [place] [facility] [address] [facility], [place], [address], 01/19/2024 11:02:26 01/18/20 24 01/19/2024 LIPID PANEL , STAND NABILA LDL-choleste rol 118 mg/dL _(selvin c) high Refer ence range : <100 James able range <100 mg/dL for prima ry preve ntion ; <70 mg/dL for patie nts with CHD or diabe tic patie nts with > or = 2 CHD risk facto rs. LDL-C is now calcu lated using the Harmony n-Hop kins calcu latio n, which is a valid ated novel kennedyo lauren ruiz r accur acy than the Fried john equat ion in the estim ation of LDL-C . Harmony RUDOLPH et al. KENNEDY. 2013; 310(1 9): 2061- 2068 (http ://ed ucati on.Qu estDi Zemantas. com/f aq/FA Q164) Not Available [facility] [place] [facility] [address] [facility], [place], [address], 01/19/2024 11:02:26 01/18/20 24 01/19/2024 LIPID PANEL , STAND NABILA chol/HDLC ratio 3.2 (calc ) <5.0 normal Not Available [facility] [place] [facility] [address] [facility] [place], [address], 01/19/2024 11:02:26 01/18/20 24 01/19/2024 LIPID PANEL , STAND NABILA non HDL cholesterol 135 mg/dL _(selvin c) <130 high For patie nts with diabe herminia plus 1 major ASCVD risk facto r, treat ing to a non-H DL-C goal of <100 mg/dL (LDL- C of <70 mg/dL ) is consi dered a thera peuti c optio n. Not Available [facility] [place] [facility] [address] [facility] [place], [address], 01/19/2024 11:02:26 01/18/20 24 01/19/2024 COMPR EHENS SAM METAB OLIC PANEL glucose 98 mg/dL 65-99 normal Fasti ng refer ence inter sherley Not Available [facility] [address] [facility] [place], [address], 01/19/2024 11:02:27 01/18/20 24 01/19/2024 COMPR EHENS SAM METAB OLIC PANEL urea nitrogen (BUN) 13 mg/dL 7-25 normal Not Available [facility] [address] [facility] [place], [address], 01/19/2024 11:02:27 01/18/20 24 01/19/2024 COMPR EHENS SAM METAB OLIC PANEL creatinine 1.06 mg/dL 0.70-1 .30 normal Not Available [facility] [address] [facility] [place], [address], 01/19/2024 11:02:27 01/18/20 24 01/19/2024 COMPR EHENS SAM METAB OLIC PANEL eGFR 83 mL/mi n/1.7 3m2 > or = 60 normal Not Available [facility] [place] [facility] [address] [facility] [place], [address], 01/19/2024 11:02:27 01/18/20 24 01/19/2024 COMPR EHENS SAM METAB OLIC PANEL BUN/creatini ne ratio SEE NOTE: (calc ) 6-22 Not Repor mauricio: BUN and Creat inine are withi n refer ence range . Not Available [facility] [address] [facility], [place], [address], 01/19/2024 11:02:27 01/18/20 24 01/19/2024 COMPR EHENS SAM METAB OLIC PANEL sodium 137 mmol/ L 135-14 6 normal Not Available [facility] [address] [facility] [place], [address], 01/19/2024 11:02:27 01/18/20 24 01/19/2024 COMPR EHENS SAM METAB OLIC PANEL potassium 4.8 mmol/ L 3.5-5. 3 normal Not Available [facility] [address] [facility], [place], [address], 01/19/2024 11:02:27 01/18/20 24 01/19/2024 COMPR EHENS SAM METAB OLIC PANEL chloride 102 mmol/ L 98-110 normal Not Available [facility] [address] [facility], [place], [address], 01/19/2024 11:02:27 01/18/20 24 01/19/2024 COMPR EHENS SAM METAB OLIC PANEL carbon dioxide 28 mmol/ L 20-32 normal Not Available [facility] [address] [facility] [place], [address], 01/19/2024 11:02:27 01/18/20 24 01/19/2024 COMPR EHENS SAM METAB OLIC PANEL calcium 9.4 mg/dL 8.6-10 .3 normal Not Available [facility] [address] [facility] [place], [address], 01/19/2024 11:02:27 01/18/20 24 01/19/2024 COMPR EHENS SAM METAB OLIC PANEL protein, total 6.5 g/dL 6.1-8. 1 normal Not Available [facility] [address] [place], [address], 01/19/2024 11:02:27 01/18/20 24 01/19/2024 COMPR EHENS SAM METAB OLIC PANEL albumin 4.2 g/dL 3.6-5. 1 normal Not Available [facility] [address] [place], [address], 01/19/2024 11:02:27 01/18/20 24 01/19/2024 COMPR EHENS SAM METAB OLIC PANEL globulin 2.3 g/dL_ (calc ) 1.9-3. 7 normal Not Available [facility] [address], [place], [address], 01/19/2024 11:02:27 01/18/20 24 01/19/2024 COMPR EHENS SAM METAB OLIC PANEL albumin/glob ulin ratio 1.8 (calc ) 1.0-2. 5 normal Not Available [facility] [address] [place], [address], 01/19/2024 11:02:27 01/18/20 24 01/19/2024 COMPR EHENS SAM METAB OLIC PANEL bilirubin, total 0.5 mg/dL 0.2-1. 2 normal Not Available [facility] [address], [place], [address], 01/19/2024 11:02:27 01/18/20 24 01/19/2024 COMPR EHENS SAM METAB OLIC PANEL alkaline phosphatase 61 U/L 35-144 normal Not Available [facility] [facility] [address], [place], [address], 01/19/2024 11:02:27 01/18/20 24 01/19/2024 COMPR EHENS SAM METAB OLIC PANEL AST 12 U/L 10-35 normal Not Available [facility] [place] [facility] [address] [place], [address], 01/19/2024 11:02:27 01/18/20 24 01/19/2024 COMPR EHENS SAM METAB OLIC PANEL ALT 8 U/L 9-46 low Not Available [facility] [place] [facility] [address], [place], [place], [address], 01/19/2024 11:02:27 01/18/20 24 01/19/2024 CBC (INCL UDES DIFF/ PLT) white blood cell count 6.6 thous and/u L 3.8-10 .8 normal Not Available [facility] [place] [facility] [address], [place], [address], 01/19/2024 06:51:00 01/18/2001/19/2024 CBC (INCL UDES DIFF/ PLT) red blood cell count 5.08 nathan on/uL 4.20-5 .80 normal Not Available [facility] [place] [facility] [address], [place], [place], [address], 01/19/2024 06:51:00 01/18/2001/19/2024 CBC (INCL UDES DIFF/ PLT) hemoglobin 14.9 g/dL 13.2-1 7.1 normal Not Available [facility] [place] [facility] [address], [place], [place], [address], 01/19/2024 06:51:00 01/18/2001/19/2024 CBC (INCL UDES DIFF/ PLT) hematocrit 44.4 % 38.5-5 0.0 normal Not Available [facility] [place] [facility] [address], [place], [place], [address], 01/19/2024 06:51:00 01/18/2001/19/2024 CBC (INCL UDES DIFF/ PLT) MCV 87.4 fL 80.0-1 00.0 normal Not Available [facility] [place] [facility] [address] [facility] [place], [address], 01/19/2024 06:51:00 01/18/20 24 01/19/2024 CBC (INCL UDES DIFF/ PLT) MCH 29.3 pg 27.0-3 3.0 normal Not Available [facility] [address] [facility] [place], [address], 01/19/2024 06:51:00 01/18/2001/19/2024 CBC (INCL UDES DIFF/ PLT) MCHC 33.6 g/dL 32.0-3 6.0 normal Not Available [facility] [address] [facility] [place], [address], 01/19/2024 06:51:00 01/18/2001/19/2024 CBC (INCL UDES DIFF/ PLT) RDW 12.9 % 11.0-1 5.0 normal Not Available [facility] [place] [facility] [address] [facility], [place], [address], 01/19/2024 06:51:00 01/18/2001/19/2024 CBC (INCL UDES DIFF/ PLT) platelet count 286 thous and/u L 140-40 0 normal Not Available [facility] [address] [facility] [place], [address], 01/19/2024 06:51:00 01/18/2001/19/2024 CBC (INCL UDES DIFF/ PLT) MPV 9.4 fL 7.5-12 .5 normal Not Available [facility] [address] [facility] [place], [address], 01/19/2024 06:51:00 01/18/2001/19/2024 CBC (INCL UDES DIFF/ PLT) absolute neutrophils 3056 cells /uL 1500-7 800 normal Not Available [facility] [place] [facility] [address], [place], [address], 01/19/2024 06:51:00 01/18/20 24 01/19/2024 CBC (INCL UDES DIFF/ PLT) absolute lymphocytes 2930 cells /uL 850-39 00 normal Not Available [facility] [place] [facility] [address], [place], [address], 01/19/2024 06:51:00 01/18/2001/19/2024 CBC (INCL UDES DIFF/ PLT) absolute monocytes 442 cells /uL 200-95 0 normal Not Available [facility] [place] [facility] [address], [place], [address], 01/19/2024 06:51:00 01/18/2001/19/2024 CBC (INCL UDES DIFF/ PLT) absolute eosinophils 132 cells /uL 15-500 normal Not Available [facility] [place] [facility] [address], [place], [address], 01/19/2024 06:51:00 01/18/2001/19/2024 CBC (INCL UDES DIFF/ PLT) absolute basophils 40 cells /uL 0-200 normal Not Available [facility] [place] [facility] [address], [place], [address], 01/19/2024 06:51:00 01/18/2001/19/2024 CBC (INCL UDES DIFF/ PLT) neutrophils 46.3 % normal Not Available [facility] [place] [facility] [address], [place], [address], 01/19/2024 06:51:00 01/18/2001/19/2024 CBC (INCL UDES DIFF/ PLT) lymphocytes 44.4 % normal Not Available [facility] [place] [facility] [address], [place], [address], 01/19/2024 06:51:00 01/18/20 24 01/19/2024 CBC (INCL UDES DIFF/ PLT) monocytes 6.7 % normal Not Available [facility] [place] [facility] [address] [place], [address], 01/19/2024 06:51:00 01/18/2001/19/2024 CBC (INCL UDES DIFF/ PLT) eosinophils 2.0 % normal Not Available [facility] [place] [facility] [address] [place], [address], 01/19/2024 06:51:00 01/18/20 24 01/19/2024 CBC (INCL UDES DIFF/ PLT) basophils 0.6 % normal Not Available [facility] [place] [facility] [address] [place], [address], 01/19/2024 06:51:00 01/18/20 24 01/20/2024 HEPAT ITIS C AB W/REF L TO HCV RNA, QN, PCR hepatitis C antibody NON-RE ACTIVE non-re active normal HCV antib josé miguel was non-r eacti ve. There is no labor atory evide nce of HCV infec tion. In most cases , no furth er actio n is requi red. Howev er, if recen t HCV expos ure is suspe cted, a test for HCV RNA (test code 84610 ) is sugge sted. For addit ional infor carlos n plejannie e refer to http: //[facility] veraque stdia gnost ics.c om/fa q/FAQ 22v1 (This link is being provi ded for infor carlos wyatt/ educa gaye l purpo ses only. ) Not Available [facility] [place] [facility] [address] [place], [address], 01/20/2024 01:24:05 01/18/2001/20/2024 HIV 1/2 ANTIG EN/AN TIBOD Y,FOU RTH GENER ATION W/RFL HIV Ag/Ab, 4TH gen NON-RE ACTIVE non-re active normal HIV-1 antig en and HIV-1 /HIV- 2 antib odies were not detec mauricio. There is no labor atory evide nce of HIV infec tion. PLEAS E NOTE: This infor matio n has been discl osed to you from recor ds whose confi denti ality may be prote cted by state law. If your state requi res such prote ction , then the state law prohi bits you from luke g any furth er discl osure of the infor matio n witho ut the speci fic writt en conse nt of the perso n to whom it perta ins, or as other elder permi tted by law. A gener al autho rizat ion for the relea se of medic al or other infor matio n is NOT suffi cient for this purpo se. For addit ional infor matio n pleas e refer to http: //[facility] [place] stdia gnost ics.c om/fa q/FAQ 106 (This link is being provi ded for infor matio nal/ educa gaye l purpo ses only. ) The perfo rmanc e of this assay has not been clini zi valid ated in patie nts less than 2 years old. Not Available [facility] [place] [facility] [address] [facility], [place], [address], 01/20/2024 01:24:06 01/18/20 24 01/19/2024 PSA, TOTAL PSA, total 0.74 NG/mL < or = 4.00 normal The total PSA value from this assay syste m is stand ardiz ed again st the WHO stand nabila. The test resul t will be appro ximat julien 20% lower when jomar red to the equim olar- stand ardiz ed total PSA (Baron man Coult er). Jomar rison of seria l PSA resul ts shoul d be inter prete d with this fact in mind. This test was perfo rmed using the Sieme ns chemi lumin escen t metho d. Value s obtai rasta from diffe rent assay metho ds canno t be used inter donald eably . PSA level s, regar dless of value , shoul d not be inter prete d as absol kanu evide nce of the prese nce or absen ce of disea se. Not Available [facility] [address] [place], [address], 01/19/2024 14:13:36 01/18/20 24 01/19/2024 RPR (DX) W/REF L TITER AND T. PALLI DUM AB, IA RPR (DX) w/refl titer and confirmatory testing NON-RE ACTIVE non-re active normal No labor atory evide nce of syphi lis. If recen t expos ure is suspe cted, submi t a new sampl e in 2-4 weeks . Not Available [facility] [address] [place], [address], 01/19/2024 12:53:08 01/18/20 24 01/19/2024 DRUG MONIT OR, PANEL 1, W/CON F, URINE amphetamines NEGATI VE NG/mL <500 normal Not Available [facility] [place] [facility] [address] [place], [address], 01/19/2024 13:47:47 01/18/20 24 01/19/2024 DRUG MONIT OR, PANEL 1, W/CON F, URINE barbiturates NEGATI VE NG/mL <300 normal Not Available [facility] [place] [facility] [address] [place], [address], 01/19/2024 13:47:47 01/18/20 24 01/19/2024 DRUG MONIT OR, PANEL 1, W/CON F, URINE benzodiazepi chikis NEGATI VE NG/mL <100 normal Not Available [facility] [address] [place], [address], 01/19/2024 13:47:47 01/18/20 24 01/19/2024 DRUG MONIT OR, PANEL 1, W/CON F, URINE cocaine metabolite NEGATI VE NG/mL <150 normal Not Available [facility] [place] [facility] [address] [place], [address], 01/19/2024 13:47:47 01/18/20 24 01/19/2024 DRUG MONIT OR, PANEL 1, W/CON F, URINE marijuana metabolite NEGATI VE NG/mL <20 normal Not Available [facility] [address] [place], [address], 01/19/2024 13:47:47 01/18/20 24 01/19/2024 DRUG MONIT OR, PANEL 1, W/CON F, URINE methadone metabolite NEGATI VE NG/mL <100 normal Not Available [facility] [address] [place], [address], 01/19/2024 13:47:47 01/18/20 24 01/19/2024 DRUG MONIT OR, PANEL 1, W/CON F, URINE opiates NEGATI VE NG/mL <100 normal Not Available [facility] [address] [place], [address], 01/19/2024 13:47:47 01/18/20 24 01/19/2024 DRUG MONIT OR, PANEL 1, W/CON F, URINE oxycodone NEGATI VE NG/mL <100 normal Not Available [facility] [address] [place], [address], 01/19/2024 13:47:47 01/18/20 24 01/19/2024 DRUG MONIT OR, PANEL 1, W/CON F, URINE phencyclidin e NEGATI VE NG/mL <25 normal Not Available [facility] [address] [place], [address], 01/19/2024 13:47:47 05/14/01/19/2024 DRUG MONIT OR, PANEL 1, W/CON F, URINE creatinine 114.4 mg/dL > or = 20.0 normal Not Available [facility] [place] [facility] [address] [place], [address], 01/19/2024 13:47:47 01/18/20 24 01/19/2024 DRUG MONIT OR, PANEL 1, W/CON F, URINE pH 7.8 4.5-9. 0 normal Not Available [facility] [place] [facility] [address] [place], [address], 01/19/2024 13:47:47 01/18/20 24 01/19/2024 DRUG MONIT OR, PANEL 1, W/CON F, URINE oxidant NEGATI VE mcg/m L <200 normal Not Available [facility] [place] [facility] [address] [place], [address], 01/19/2024 13:47:47 01/18/20 24 01/19/2024 DRUG MONIT ORING TEMPL ATE notes and comments This drug testi ng is for medic al treat ment only. Alpa sis was perfo rmed as non-f orens ic testi ng and these resul ts shoul d be used only by healt hcare provi ders to rende r diagn osis or treat ment, or to monit or progr ess of medic al condi tions . [facility] need[facility] ng Inter preta tion rosio tance , pleas e conta ct us at 1.877 .40.R XTOX (1.87 [phone] ) M-F, 8am to 10pm EST Not Available [facility] [place] [facility] [address] [place], [address], 01/19/2024 13:47:48 11/23/19 25 11/23/2024 DRUG PROFI LE,UR ,9 DRUGS ,BUND amphetamines , urine See Final Result s NG/mL cutoff =1000 Amphe tamin e test inclu rajesh Amphe tamin e and Metha mphet amine . Not Available [facility] [address] [place], [address], 11/25/2024 15:07:27 11/23/19 25 11/23/2024 DRUG PROFI LE,UR ,9 DRUGS ,BUND barbiturate Negati ve NG/mL cutoff =300 Not Available [facility] ([facility]) [address] [place], [address], 11/25/2024 15:07:27 11/23/19 25 11/23/2024 DRUG PROFI LE,UR ,9 DRUGS ,BUND benzodiazepi chikis Negati ve NG/mL cutoff =300 Not Available [facility] ([facility]) [address] [facility], [place], [address], 11/25/2024 15:07:27 11/23/19 25 11/23/2024 DRUG PROFI LE,UR ,9 DRUGS ,BUND cannabinoid Negati ve NG/mL cutoff =50 Not Available [facility] ([facility]) [address] [place], [address], 11/25/2024 15:07:27 11/23/19 25 11/23/2024 DRUG PROFI LE,UR ,9 DRUGS ,BUND cocaine (metab.) Negati ve NG/mL cutoff =300 Not Available [facility] ([facility]) [address] [place], [address], 11/25/2024 15:07:27 11/23/19 25 11/23/2024 DRUG PROFI LE,UR ,9 DRUGS ,BUND opiates Negati ve NG/mL cutoff =300 Opiat e test inclu rajesh Codei ne and Morph ine only. Not Available [facility] ([facility]) [address] [place], [address], 11/25/2024 15:07:27 11/23/19 25 11/23/2024 DRUG PROFI LE,UR ,9 DRUGS ,BUND phencyclidin e Negati ve NG/mL cutoff =25 Not Available [facility] ([facility]) [address] [place], [address], 11/25/2024 15:07:27 11/23/19 25 11/23/2024 DRUG PROFI LE,UR ,9 DRUGS ,BUND methadone screen, urine Negati ve NG/mL cutoff =300 Not Available [facility] ([facility]) [address] [facility], [place], [address], 11/25/2024 15:07:27 11/23/19 25 11/23/2024 DRUG PROFI LE,UR ,9 DRUGS ,BUND propoxyphene , urine Negati ve NG/mL cutoff =300 Eff ectiv e December 04, 2024, this test will be disco ntinu ed. Pleas e conta ct your [facility] r[facility] repre senta tive for sugge sted repla cemen t test optio ns. Not Available [facility] ([facility]) [address] [facility], [place], [address], 11/25/2024 15:07:27 11/23/19 25 11/25/2024 DRUG PROFI LE,UR ,9 DRUGS ,BUND amphetamines Negati ve cutoff =1000 Amphe tamin e test inclu rajesh Amphe tamin e and Metha mphet amine . Not Available [facility] ([facility]) [address] [facility], [place], [address], 11/25/2024 15:07:27 11/23/19 25 11/25/2024 GABAP ENTIN , URINE gabapentin, urine Negati ve ug/mL Not Available [facility] ([facility]) [address] [facility], [place], [address], 11/25/2024 15:07:27 Result Notes None recorded. Problems Name Problem SNOMED Code Status Onset Date Resolution Date Notes Provider Name and Address Organization Details Recorded Time Mixed hyperlip idemia 857395374 Active 2021 Problem Code: E78.2; Problem Code Type: ICD-10; Not Available [facility] 22:18:14 Tobacco dependen ce caused by cigarett es 98307651466 257926 Active 2020 Problem Code: F17.210; Problem Code Type: ICD-10; Not Available [facility] 22:18:14 Gastro-e sophagea l reflux disease with esophagi tis 229357456 Active 2021 Problem Code: K21.00; Problem Code Type: ICD-10; Not Available [facility] 22:18:15 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 77458634191 9100 Active 2020 Not Available [facility] 22:18:15 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 61085448603 9105 Active 2020 Problem Code: M51.16; Problem Code Type: ICD-10; Not Available [facility] 22:18:15 Finding of general energy 146303213 Active 2021 Problem Code: R53.83; Problem Code Type: ICD-10; Not Available [facility] 22:18:15 Body mass index 20-24 - normal 476293616 Completed 202012/26/2021 Not Available [facility] 22:18:15 Chronic obstruct sam pulmonar y disease 45894319 Active 2020 Problem Code: J44.9; Problem Code Type: ICD-10; Not Available [facility] 22:18:15 Body mass index 25-29 - overweig ht 624392080 Active 2021 Problem Code: Z68.27; Problem Code Type: ICD-10; Not Available [facility] 22:18:15 Nocturia 958629405 Active 2021 Problem Code: R35.1; Problem Code Type: ICD-10; Not Available [facility] 22:18:15 Notes:*Problem Name: Encount er for general adult medical examination *ICD-10 Codes: Z00.00 *Problem Status: Chronic *Comments: RMX27Axqmr: 'Z00.0'; *Problem Code: Z00.0 *Problem Code Type: ICD-10 *Note Date: 10/01/2021 Problem Notes None recorded. Medical Equipment None Reported. Allergies No known drug allergies Medications Name Sig Start Date Stop Date Status Note LastModified by Organization Details LastModified Time cyclobenzap rine 10 mg tablet TAKE ONE TABLET BY MOUTH TWICE DAILY NEEDED FOR back pain 2024 active Not Available Not Available Not Avai lable paroxetine 10 mg tablet Take 1 tablet every day by oral route, for Depressio n. 2024 active Not Available Not Available Not Avai lable Remeron 30 mg tablet Take 1 tablet every day by oral route at bedtime. 2024 active Not Available Not Available Not Avai lable ondansetron HCl 4 mg tablet TAKE 1 TABLET EVERY 6 HOURS BY ORAL ROUTE NEEDED, FOR NAUSEA. 11/22 completed Not Available Not Available Not Available Medrol (Long) 4 mg tablets in a dose pack take by oral route as directed per package instructi ons 07/01 completed Not Available Not Available Not Available gabapentin 300 mg capsule TAKE ONE CAPSULE BY MOUTH NIGHTLY AT BEDTIME FOR back pain 2024 active Not Available Not Available Not Avai lable omeprazole 20 mg capsule,del ayed release take 1 capsule (20 mg) by oral route once daily 30 minutes to 1 hour before a meal 2024 active Not Available Not Available Not Avai lable omeprazole magnesium 20 mg tablet,surendra yed release 10/01 completed Not Available Not Available Not Available duloxetine 30 mg capsule,del ayed release Take 1 capsule every day by oral route. 10/19 completed Not Available Not Available Not Available Lyrica 75 mg capsule Take 1 capsule twice a day by oral route. 01/13 completed Not Available Not Available Not Available ProAir HFA 90 mcg/actuati on aerosol inhaler INHALE 1 - 2 PUFFS (90 - 180 MCG) BY INHALATIO N ROUTE EVERY 4 HOURS NEEDED 2024 active Not Available Not Available Not Avai lable Symbicort 160 mcg-4.5 mcg/actuati on HFA aerosol inhaler inhale 2 puffs by inhalatio n route 2 times per day in the morning and evening and rinse mouth after use 2024 active Not Available Not Available Not Avai lable Flonase Allergy Relief 50 mcg/actuati on nasal spray,suspe nsion [place] 1 spray(s) every day by intranasa l route. 2024 active Not Available Not Available Not Avai lable Flowflex COVID-19 Antigen Home Test kit DIRECTED 06/26 completed Not Available Not Available Not Available Vitals Date Recorded Body height Body mass index (BMI) Body weight Body temperature Heart rate Oxygen saturation Oxygen saturation in Arterial blood by Pulse oximetry Systolic And Diastolic Provider Name and Address Organization Details Last Updated DateTime 4 167.64 cm 22.6 kg/m2 71884.6 5 g 97.7 [degF] 89 /min 97 % 97 % 103/58 mm[Hg] [employer] 4 16:07:46 Date Recorded Body height Body mass index (BMI) Body weight Heart rate Oxygen saturation Oxygen saturation in Arterial blood by Pulse oximetry Systolic And Diastolic Provider Name and Address Organization Details Last Updated DateTime 5 167.64 cm 24.5 kg/m2 89793.0 4 g 89 /min 97 % 97 % 128/78 mm[Hg] Elaine Ram[employer] 5 14:05:04 Date Recorded Body height Body mass index (BMI) Body weight Body temperature Heart rate Oxygen saturation Oxygen saturation in Arterial blood by Pulse oximetry Systolic And Diastolic Provider Name and Address Organization Details Last Updated DateTime 4 167.64 cm 24.5 kg/m2 65355.0 4 g 98 [degF] 99 /min 98 % 98 % 118/64 mm[Hg] [employer] 4 11:23:16 Date Recorded Body height Body mass index (BMI) Body weight Body temperature Heart rate Oxygen saturation Oxygen saturation in Arterial blood by Pulse oximetry Systolic And Diastolic Provider Name and Address Organization Details Last Updated DateTime 4 167.64 cm 25.1 kg/m2 13239.6 9 g 97.7 [degF] 112 /min 97 % 97 % 115/71 mm[Hg] GIOVANNY [employer]. 4 16:55:19 Date Recorded Body height Body mass index (BMI) Body weight Body temperature Heart rate Oxygen saturation Oxygen saturation in Arterial blood by Pulse oximetry Systolic And Diastolic Provider Name and Address Organization Details Last Updated DateTime 3 167.64 cm 24.2 kg/m2 37728.8 6 g 98.3 [degF] 110 /min 98 % 98 % 128/74 mm[Hg] GIOVANNY [employer] 3 13:40:06 Social History Question Answer Notes LastModified by Organizat ion Details LastModified Time Tobacco Smoking Status Current Every Day Smoker SocialHistor yQuestion: 'Tobacco/Alc ohol/Supplem ents'; SocialHistor yResponse: 'Current Everyday Smoker'; Not Available [facility] 05/12/2022 22:55:26 Do You Have An Advance Directive? No Information not available 06/26/2022 Is Your Home Air Conditioned? Yes Information not available 06/26/2022 In The 14 Days Before Symptom Onset, Have You Had Close Contact With A Laboratory-confir med COVID-19 While That Case Was Ill? No Information not available 06/26/2022 In The 14 Days Before Symptom Onset, Have You Had Close Contact With A Person Who Is Under Investigation For COVID-19 While That Person Was Ill? No Information not available 06/26/2022 Have You Been To An Area Known To Be High Risk For COVID-19? No Information not available 06/26/2022 Are You Deaf Or Do You Have Serious Difficulty Hearing? No Information not available 06/26/2022 What Type Of Diet Are You Following? REGULAR Information not available 06/26/2022 Are There Any Guns Present In Your Home? No Information not available 06/26/2022 Do You Have A Medical Power Of Newspaper Photojournalist? No Information not available 06/26/2022 What Was The Date Of Your Most Recent Tobacco Screening? 11/22/2024 [email or web address] Information not available 11/22/2024 What Is Your Current Pack Years? 30ormorepac selins Information not available 06/26/2022 What Is Your Relationship Status? Information not available 06/26/2022 Do You Use Your Seat Belt Or Car Seat Routinely? Yes Information not available 06/26/2022 Do You Have Smoke And Carbon Monoxide Detectors In Your Home? Yes Information not available 06/26/2022 At What Age Did You Start Smoking Tobacco? 8 Information not available 06/26/2022 Are You Passively Exposed To Smoke? Yes Information no t available 06/26/2022 Are There Any Smokers In Your House? Yes Information not available 06/26/2022 How Much Tobacco Do You Smoke? 1 PPD Information not available 06/26/2022 Do You Use Sunscreen Routinely? No Information not available 06/26/2022 How Many Years Have You Smoked Tobacco? 44 Information not available 06/26/2022 Have You Recently Traveled Abroad? No Information not available 06/26/2022 Do You Have Difficulty Walking Or Climbing Stairs? No Information not available 06/26/2022 Are You Currently In School? No Information not available 06/26/2022 Do You Have Any Dietary Restrictions? No Information not available 06/26/2022 Sex: Male Functional Status Question Answer Note LastModified by Organizat ion Details LastModified Time Do you use any illicit or recreational drugs? No Information not available 06/26/2022 What is your level of alcohol consumption? None Information not available 06/26/2022 Are you currently employed? No Information not available 06/26/2022 Do you have transportation difficulties? No Information not available 06/26/2022 Do you have difficulty doing errands alone? No Information not available 06/26/2022 Do you have difficulty dressing or bathing? No Information not available 06/26/2022 Mental Status Question Answer Note LastModified by Organization D etails LastModified Time Do you have difficulty concentrating, remembering or making decisions? No Information no t available 06/26/2022 Family History Relationship Description Onset Age of this Age Resolved Age Notes LastModified by Organization Details LastModified Time Father Family history of alcoholism Relati ve: ''; [email or web address] Not available 06/26/2022 15:38:58 Unspecified Relation Family history of malignant neoplasm Relati ve: ''; [email or web address] Not available 05/12/2022 22:57:06 Unspecified Relation Family history of ischemic heart disease Relati ve: ''; [email or web address] Not available 05/12/2022 22:57:06 Notes:*Procedure Description : Documented family medical history in mother*Relative: Mother *Procedure Description: Documented family medical history in father*Relative: Father Medical History Condition Response Hospitalizations N Acid Reflux (GERD) Y Emergency room visit since last appointm ent. N High Cholesterol Y Past Encounters Encounter ID Performer Location Encounter Start Date Encounter Closed Date Diagnosis/Indication Diagnosis SNOMED-CT Code Diagnosis ICD10 Code Diagnosis Note [id number] Cristina Wright [place] [phone] 06/26/2022 15:22:51 06/26/2022 15:59:53 Radiculopathy due to lumbar intervertebral disc disorder 4635740404 27138 M51.16 D/c Gabapentin due to memory loss, and will trial Lyrica. Will send one week supply of gabapentin as he has three pills left and Lyrica will need a PA which will take a few days. I have advised him that if his memory issues progress, he needs to return to clinic for further neurologic al work-up with neurology consult and imaging of his brain. He understand s this. I also again today recommende d smoking cessation. [id number] Cristina Wright [address] [address] 01/13/2023 14:10:45 01/13/2023 16:27:07 Moderate major depression, single episode 89474651 F32.1 Chronic ob structive pulmonary disease 98077898 J44.9 Sherwin reviewed today, urine drug screen obtained, long-term controlled substance agreement resigned with patient today. We will begin the gabapentin and the Flexeril which previously worked for him. The community health worker met with him today. We will start Remeron to help with his sleep and mood and hopefully increase his appetite a bit. I have discussed with him that should he become suicidal that he can call the suicide hotline, report to the office, or the nearest emergency room. He adamantly denies suicidal ideations today. 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 Radiculopa thy due to lumbar intervertebral disc disorder 6722054137 87923 M51.16 Trial of muscle relaxants and Cymbalta. Moderate m ajor depression, single episode 98555086 F32.1 Chronic ob structive pulmonary disease 95174204 J44.9 Continue inhalers. Smoking cessation was again recommende d. Gastro-eso phageal reflux disease with esophagitis 955209521 K21.00 Refill PPI today. [id number] Cristina Wright[address] [address] 10/19/2023 15:53:43 10/19/2023 16:31:57 Moderate major depression, single episode 45748371 F32.1 Start Paxil 10 mg daily. He continues to refuse referral to MAT program and Behavioral Health. Chronic ob structive pulmonary disease 46268948 J44.9 Continue inhalers. Smoking cessation was again recommende d. Gastro-eso phageal reflux disease with esophagitis 342455065 K21.00 Refill PPI today. Zofran prn nausea. Radiculopa thy due to lumbar intervertebral disc disorder 1364111391 04350 M51.16 Continue Flexeril. [id number] [place] [phone] 01/18/2024 10:59:59 01/18/2024 11:53:01 Chronic obstructive pulmonary disease 62404640 J44.9 Continue inhalers. Smoking cessation was again recommende d. Mixed hyperlipidemia 267 304464 E78.2 Nocturia 019140871 R35.1 Hepatitis C screening 41 5181095 Z11.59 HIV screening 884985587 Z11.4 History of recreational drug use 238730210 F19.21 Radiculopa thy due to lumbar intervertebral disc disorder 4151610830 40415 M51.16 Continue Flexeril. Moderate m ajor depression, single episode 03879046 F32.1 Continue Paxil and Remeron. Gastro-eso phageal reflux disease with esophagitis 511786634 K21.00 Refill PPI today. Tobacco de pendence caused by cigarettes 0018167403 0371845 F17.210 Smoking cessation encouraged . [id number] [place] [phone] 04/05/2024 16:34:49 04/05/2024 17:37:40 Radiculopathy due to lumbar intervertebral disc disorder 2358224668 75396 M51.16 Continue Flexeril. Sherwin reviewed. UDS was NML at last visit in January. rn long term care controlled substance agreement explained and signed to begin low dose gabapentin . Moderate m ajor depression, single episode 30144695 F32.1 Continue Paxil and Remeron. Gastro-eso phageal reflux disease with esophagitis 750108702 K21.00 Refill PPI today. Chronic ob structive pulmonary disease 48879453 J44.9 Continue inhalers. Smoking cessation was again recommende d. Tobacco de pendence caused by cigarettes 0940375129 0368069 F17.210 Smoking cessation encouraged . Body mass index 25-29 - overweight 910571238 Z68.25 [id number] [place] [id number] 11/22/2024 13:50:52 11/22/2024 14:31:43 Moderate major depression, single episode 58390433 F32.1 Restart Paxil and Remeron. Gastro-eso phageal reflux disease with esophagitis 792215636 K21.00 Refill PPI today. Chronic ob structive pulmonary disease 30832745 J44.9 Continue inhalers. Smoking cessation was again recommende d. Long-term current use of drug therapy 242551631 Z79.899 Radiculopa thy co-occurrent and due to thoracic intervertebral disc disorder 9696131244 28985 M51.15 I will refer gabapentin and muscle relaxants if UDS is neg. Previous MRI has revealed severe lumbar DDD. Tobacco de pendence caused by cigarettes 1482080235 8023061 F17.210 Smoking cessation encouraged . Health Concerns Section Related Observation LastModified by Organization Detai ls LastModified Time None Recorded Concern Status LastModified by Organization Details LastModified Time None Recorded Advance Directives Directive N: Payers Insurance Date Sequence Insurance Name Policy Number Policy Martínez Covered Member ID Martínez Member ID Guarantor Name 11/21/2024 [place]MEDICAID) Cale Loera [id number] Juanito Loera 12/05/2024 1 [place] ([place]ICA[place] HMO) Cale Loera [id number] Juanito Loera 01/13/2023 1 *SELF PAY* Co rnelidavon Loera Notes Date Note Type Note Provider Name and Address Organization Details Recorded Time 04/20/2023 text/html Anxiety/Depressi onRep orted bypatient.Severity:de nies suicidal ideations;interferenc e with activities of daily living;interference with sleep Duration:symptoms lasting: (8 months) Onset/Timing:sudden Context:bereavement; of his spouse Modifying Factors:social support Associated Symptoms:denies homicidal ideations;weight loss ( lbs);eating less;depression;lonel iness;grieving;insomn ia;sleep disturbances;despair/ hopelessnessCOPDRepor mauricio bypatient.Onset/Timin g:intermittent Duration:chronic; has noted for years; attacks are infrequent Severity:mild Context:cigarette smoking Alleviating factors:relieved with bronchodilator Aggravating factors:worse with cigarette smoking;worse with exertion Associated Symptoms:dyspnea during exertion;decrease in exercise capacity;weight loss;depressionChroni c Pain Follow-upReported bypatient.Location:lo cation: (Lumbar spine); radiating (Bilateral lower extremities) Quality:aching; tingling; burning Pain Severity:average pain /10; worst pain 9/10; frequency: Alleviating factors:heat therapy; cold therapy; NSAIDS; Gabapentin Aggravating Factors:movement Analgesia:taking pain medication ADL Improvements:physical ly functioning; able to maintain relationships;mood affected;sleep patterns disturbed Adverse Reactions:no nausea; no vomiting; no constipation; no itching; no sweating; no fatigue; no drowsiness; no sexual dysfunction;mental cloudinessNotes:Patie cecy with significant lumbar radiculopathy presents for follow-up. He was seen here in the clinic 3 months ago where he has to reestablish care and go back on his gabapentin. He had been lost to care for approximately a year due to the of his . Unfortunately on that clinic visit his urine drug screen was positive for methamphetamine and benzos. His Pending prescriptions were declined upon receiving his drug screen result.Today he states that he has been abstinent from illicit substances and alcohol for 3 months. He states he is now in a better place and is living with a friend. He states he is attempting to get disability due to his back pain and COPD. He states his mood is improved and he is sleeping better. He is asking today to be prescribed gabapentin. I explained to patient that I would not prescribe him any controlled substances due to his use of methamphetamine and benzos this year. I recommended that he enroll here in the [facility] program, and he declined. I offered referral to a chronic pain clinic, and he states he has no vehicle and no way to get to an appointment out of town. Cristina Wright APRN [address] [facility], [place], [address], [facility] [employer], [facility]. 04/25/2023 17:50:23 10/19/2023 text/html Anxiety/Depressi onRep orted bypatient.Severity:de nies suicidal ideations;interferenc e with activities of daily living;interference with sleep Duration:symptoms lasting: (); chronic Onset/Timing:gradual Context:bereavement;t obacco use;drug use; of his spouse Modifying Factors:social support Associated Symptoms:denies homicidal ideations;depression; loneliness;grieving;i nsomnia;sleep disturbances;despair/ hopelessnessCOPDRepor mauricio bypatient.Onset/Timin g:intermittent Duration:chronic; has noted for years; attacks are infrequent Severity:mild Context:cigarette smoking Alleviating factors:relieved with bronchodilator Aggravating factors:worse with cigarette smoking;worse with exertion Associated Symptoms:dyspnea during exertion;decrease in exercise capacity;weight loss;depressionChroni c Pain Follow-upReported bypatient.Location:lo cation: (Lumbar spine); radiating (Bilateral lower extremities) Quality:aching; tingling; burning Pain Severity:average pain 5/10; worst pain 9/10; frequency: Alleviating factors:heat therapy; cold therapy; NSAIDS Aggravating Factors:movement; stress ADL Improvements:physical ly functioning; able to maintain relationships;mood affected;sleep patterns disturbed Adverse Reactions:no nausea; no vomiting; no constipation; no itching; no sweating; no fatigue; no drowsiness; no sexual dysfunction;mental cloudiness Aberrant Behaviorabusing EtOH/illicit drugs Cristina Wright, [employer] [address] [place], [address], [facility] [employer], [employer]. 11/07/2023 17:46:05 01/18/2024 text/html Anxiety/Depressi onRep orted bypatient.Severity:de nies suicidal ideations; symptoms improved; previous episodes;interference with activities of daily living;interference with sleep Duration:symptoms lasting: (); chronic Onset/Timing:gradual Context:bereavement;t obacco use;drug use; of his spouse Modifying Factors:social support; selective serotonin reuptake inhibitor (SSRI) Associated Symptoms:denies homicidal ideations;weight gain ( lbs);depression;lonel iness;grieving;insomn ia;sleep disturbances;despair/ hopelessnessNotes:Sta herminia his mood and sleep are improved - is eating better - tolerating meds well.COPDReported bypatient.Onset/Timin g:intermittent Duration:chronic; has noted for years; attacks are infrequent Severity:mild Context:cigarette smoking Alleviating factors:relieved with bronchodilator Aggravating factors:worse with cigarette smoking;worse with exertion Associated Symptoms:dyspnea during exertion;decrease in exercise capacity;depressionCh ronic Pain Follow-upReported bypatient.Location:lo cation: (Lumbar spine); radiating (Bilateral lower extremities) Quality:aching; tingling; burning Pain Severity:average pain 5/10; worst pain 9/10; frequency: Alleviating factors:heat therapy; cold therapy; NSAIDS Aggravating Factors:movement; stress ADL Improvements:physical ly functioning; able to maintain relationships;mood affected;sleep patterns disturbed Adverse Reactions:no nausea; no vomiting; no constipation; no itching; no sweating; no fatigue; no drowsiness; no sexual dysfunction;mental cloudiness Cristina Wright, [employer] [address] [place], [address], [facility] [employer]. 01/18/2024 13:07:50 04/05/2024 text/html Anxiety/Depressi onRep orted bypatient.Severity:de nies suicidal ideations; symptoms improved; previous episodes;interference with activities of daily living;interference with sleep Duration:symptoms lasting: (); chronic Onset/Timing:gradual Context:bereavement;t obacco use; of his spouse Modifying Factors:social support; selective serotonin reuptake inhibitor (SSRI) Associated Symptoms:denies homicidal ideations;weight gain ( lbs);depression;griev ingNotes:States his mood and sleep are improved - is eating better - tolerating meds well.COPDReported bypatient.Onset/Timin g:intermittent Duration:chronic; has noted for years; attacks are infrequent Severity:mild Context:cigarette smoking Alleviating factors:relieved with bronchodilator Aggravating factors:worse with cigarette smoking;worse with exertion Associated Symptoms:dyspnea during exertion;decrease in exercise capacity;depressionCh ronic Pain Follow-upReported bypatient.Location:lo cation: (Lumbar spine); radiating (Bilateral lower extremities) Quality:aching; tingling; burning Pain Severity:average pain 5/10; worst pain 9/10; frequency: Alleviating factors:heat therapy; cold therapy; NSAIDS Aggravating Factors:movement; stress ADL Improvements:physical ly functioning; able to maintain relationships;mood affected;sleep patterns disturbed Adverse Reactions:no nausea; no vomiting; no constipation; no itching; no sweating; no fatigue; no drowsiness; no sexual dysfunction;mental cloudiness Cristina Wright APRN [address] [place], [address], [employer] 04/09/2024 18:55:13 11/22/2024 text/html Anxiety/Depressi onRep orted bypatient.Severity:de nies suicidal ideations; symptoms improved; previous episodes;interference with activities of daily living;interference with sleep Duration:symptoms lasting: (); chronic Onset/Timing:gradual Context:bereavement;t obacco use; of his spouse Modifying Factors:social support; selective serotonin reuptake inhibitor (SSRI) Associated Symptoms:denies homicidal ideations;weight gain ( lbs);depression;griev ingCOPDReported bypatient.Onset/Timin g:intermittent Duration:chronic; has noted for years; attacks are infrequent Severity:mild Context:cigarette smoking Alleviating factors:relieved with bronchodilator Aggravating factors:worse with cigarette smoking;worse with exertion Associated Symptoms:dyspnea during exertion;decrease in exercise capacity;depressionCh ronic Pain Follow-upReported bypatient.Location:lo cation: (Lumbar spine); radiating (Bilateral lower extremities) Quality:aching; tingling; burning Pain Severity:average pain 5/10; worst pain 9/10; frequency: Alleviating factors:heat therapy; cold therapy; NSAIDS Aggravating Factors:movement; stress ADL Improvements:physical ly functioning; able to maintain relationships;mood affected;sleep patterns disturbed Adverse Reactions:no nausea; no vomiting; no constipation; no itching; no sweating; no fatigue; no drowsiness; no sexual dysfunction;mental cloudiness Cristina Wright APRN [address] [place], [address], [employer] 12/04/2024 21:32:55
[2025-03-12] MEDS: PROMETHAZINE HCL 25MG/ML 1ML VIAL 12.5 MG IV (12:04)
[2025-03-12] MEDS: SODIUM CHLORIDE 0.9% 25ML BAG 25 ML IV (12:04)
[2025-03-12 12:09] LABS: Alanine Aminotransferase 28 U/L (12-78); Albumin Level 3.6 g/dl (3.5-5.0); Albumin/Globulin Ratio 1.6 (1.1-1.8); Alkaline Phosphatase 69 U/L (38-126); Anion Gap 15.0 mEq/L (5-15); Aspartate Amino Transferase 75 U/L (17-59); Bilirubin,Total 0.3 mg/dl (0.2-1.3); Blood Urea Nitrogen 11 mg/dl (9-20); Calcium 8.6 mg/dl (8.4-10.2); Carbon Dioxide 22 mmol/L (22.0-30.0); Chloride 103 mmol/L (98-107); Creatinine Clearance Estimated 85 mL/min (50-200); Creatinine,Serum 1.00 mg/dl (0.66-1.25); Estimated Glomerular Filt Rate 77 ml/min (>60); GFR (African American) 94 ML/MIN (>60); Globulin 2.3 g/dL (1.3-3.2); Glucose 145 mg/dl (74-100); Lipase 57 U/L (23-300); Magnesium 1.9 mg/dl (1.6-2.3); Potassium 4.0 mmoL/L (3.5-5.1); Sodium 136 mmol/L (136-145); Total Protein,Serum 5.9 g/dl (6.3-8.2)
[2025-03-12 12:21] LABS: NT Pro Brain Natriuretic Pep. 380 pg/mL (0-125)
[2025-03-12 12:24] LABS: D-Dimer 0.58 ug/mL (0.0-0.5); Troponin I 1.35 ng/ml (0.00-0.034)
--- NOTE | 2025-03-12 12:25 | PC.NURSE ---
Dr Jacobson notified of critical troponin 1.35 @ 0671
--- NOTE | 2025-03-12 12:31 | IR_ITS ---
APPROVED REPORT Patient Location: [facility] Programmer: Octavio Hernández RT (R) PROCEDURES Left heart catheterization Left ventriculogram Selective coronary angiogram Drug-eluting stent deployment to the ostial proximal and mid LAD in a contiguous manner Drug-eluting stent deployment to the first diagonal artery Intravascular ultrasound to the LAD INDICATION Acute anterior ST elevation myocardial infarction Informed consent was obtained prior to the procedure. COMPLICATIONS None Estimated Blood Loss: Less than 10 mls TECHNIQUE One percent lidocaine used to anesthetize the right anterior aspect of the wrist. The right radial artery was accessed via the Seldinger technique. A 6 [place] sheath was placed in the right radial artery. 2.5 mg of Verapamil, 800 mcg of nitroglycerin, 1mg Lidocaine and 5000 U Heparin were given through the arterial sheath. The JL3 catheter was also used to perform left heart catheterization, left ventriculogram and selective coronary angiogram. At the end of the diagnostic angiogram therapeutic heparin was administered given a therapeutic ACT and the guide catheter was placed in left main artery followed by choice extra-support wire placed into the LAD. Attempts were made to open the diagonal artery however preangioplasty access cannot be achieved. A 2.5 mm x 12 mm balloon was used to predilate the proximal LAD. Following this a 3 mm x 26 mm Jamey frontier stent was deployed at 20 ada in the proximal to mid LAD crossing the first septal rat breeder and first diagonal artery reducing the critical stenosis. A 2.5 x 26 mm Jamey frontier stent was then placed distal to the first stent yet still overlapping and deployed at 18 ada the balloon was brought back and deployed at 24 ada to match the 2 stents. A Choice PT extra-support wire was then placed into the first diagonal artery where a 1.5 mm balloon was used to open the ostium of the first diagonal artery. A guide liner was advanced and a 2 mm x 15 mm Jamey frontier stent was placed in the ostial proximal segment and deployed at 20 ada. JOSE I flow was present at the beginning of the procedure with JOSE II flow at the end of the procedure. Following this the wire was placed down the LAD where a 3 mm balloon was used to open the struts from the diagonal artery making sure there was no encroachment upon the LAD itself. Intravascular ultrasound probe was advanced which demonstrated the stent was slightly undersized proximally. A 3.5 x 8 mm Butterfield frontier stent was placed proximal to the for stent yet still overlapping and deployed at 20 ada. The balloon was advanced on 2 separate occasions to full lengths and deployed at 20 ada to post dilate. Excellent angiograph results were obtained with JOSE II flow down the LAD at the beginning the procedure with JOSE-3 flow at the end of the procedure. JOSE I flow was present in the first diagonal artery with JOSE II flow at the end of the procedure. At the end the procedure the apparatus was removed the sheath was removed good hemostasis was achieved using TR banding patient was transferred to the postoperative care in stable condition ANGIOGRAPHIC RESULTS The left main artery Normal The left anterior descending artery Has a proximal complex greater than 90% stenosis which involves a large first diagonal artery and a large first septal rat breeder. There are additional 40% mid vessel stenosis The circumflex artery Gives rise to a large ramus intermedius which has proximal 10 to 20% stenoses. The circumflex artery itself is nondominant and has a proximal 70% concentric stenosis. The vessel is 2.25 mm in diameter The right coronary artery Is a dominant vessel and has a proximal concentric 30 to 40% stenosis with additional mid vessel 10 to 20% stenosis The PATTON ventriculogram reveals Anterior wall hypokinesis estimate ejection fraction 40% The left ventricular end-diastolic pressure 25 mmHg IMPRESSION Acute anterior ST elevation myocardial infarction as described above Successful stenting of the proximal to mid LAD in a contiguous manner with 3 drug-eluting stents reducing critical stenosis to 0% and improving flow from JOSE II to JOSE-3 flow Successful stenting of a large first diagonal artery JOSE I flow improved to JOSE II flow with 1 drug-eluting stent Anterior wall hypokinesis with LV gram possibly underestimating the severity of LV dysfunction Elevated LVEDP PLAN 1. Effient and aspirin 2. Telemetry for 48 hours 3. LDL less than 55 to be achieved with high intensity statin 4. Supportive care 5. Standard therapy for LV dysfunction with plans to start Entresto followed by carvedilol 6. Formal echocardiogram to evaluate degree of LV dysfunction and to determine if LifeVest is appropriate 7. At this point I recommend medical management for the nondominant circumflex artery Electronically signed by : Shan Lundberg MD 03/12/2025 14:04:57
--- NOTE | 2025-03-12 12:38 | PC.NURSE ---
Report given to Amirah Whitney RN. Pt is on zoll monitor & pads, clipped, and placed in a gown. Consent, EKG copy, and pt label given to Sebastian Whitney.
--- NOTE | 2025-03-12 12:39 | PC.NURSE ---
Pt to metallurgical laboratory assistant with Sebastian Whitney & supervisor calibration with 2 ER RNs
[2025-03-12] MEDS: PRASUGREL 10MG TAB 60 MG PO (14:01)
--- NOTE | 2025-03-12 14:02 | HMH.PHAINT1 ---
Pharmacy Intervention Comments: MEDICATION RECONCILIATION COMPLETED ON PATIENT USING EXTERNAL FILL HISTORY FROM PHARMACY. -JOHAN TODD, FLOYDD
--- NOTE | 2025-03-12 14:08 | EXP.HP ---
History of Present Illness *Admission Date: 03/12/25 *Reason for visit:: chest pain *History of present illness: 54-year-old male who smokes approximately 2 packs a day, presented to the ER with onset of chest pain. Pain began last night. Was sharp in character accompanied by nausea and vomiting. Had similar episode previously that he thought was GERD. Has been admitted for it before and treated as though it was GERD. On this presentation, pain somewhat better but not relieved with nitroglycerin. Took nitroglycerin at home prior to coming in. Did not have aspirin at home to take. On arrival to the ED, EKG concerning for anteroseptal WV with prolonged Q-wave in V1 through [address] changes in V3 4 and 5. Troponin elevated at 1.1. Cardiology was consulted, patient taken urgently to the Community Service Manager. Received 3 stents to the LAD and circumflex. Will admit to monitor for at least 48 hours post WV. At risk for arrhythmias. On evaluation, denies any further chest pain after heart cath. No nausea, vomiting, diarrhea. Alert and oriented x 4. Family at bedside helps supplement history. Denies fever or shortness of breath. [facility] Disclaimer: The information contained in this section may have been updated after the patient was seen, as this information can be updated by other users. Medical History (Updated 03/12/25 @ 17:46 by Champ Brasher MD) GERD (gastroesophageal reflux disease) Arthritis Hiatal hernia COPD (chronic obstructive pulmonary disease) Surgical History History of removal of cyst History of banding of hemorrhoid Family History Other Family history of cancer Family history of coronary artery disease Social History Smoking Status: Current every day smoker tobacco type: cigarettes packs per day: 1 second hand exposure: Yes alcohol intake: never current occupational status: employed Travel in the last 8 weeks?: None Have you lived/traveled outside [place] in past 30 days?: No Contact w/someone who lives/traveled outside US past 30 days?: No Exposure to someone with infectious disease in past 14 days?: No Do you have a fever (greater than 100.4 F or 38 C)?: No Have you tested positive for COVID-19?: No Exposed to someone with COVID-19 in past 14 days?: No Do you have a sore throat?: No Do you have a cough?: No Do you have any weakness?: No Do you have any diarrhea?: No Are you experiencing any unusual bleeding?: No Do you have any muscle aches/pain?: No Do you have any abdominal pain?: No Are you experiencing loss of taste or smell?: No Review of Systems Review of Systems Review of systems (narrative): 14 point review of systems performed, pertinent positives and negatives as per HPI Meds Home Medications and Allergies Home Medications ?Medication ?Instructions ?Recorded ?Confirmed ?Type albuterol sulfate 90 mcg/actuation 2 puff inhalation Q4HP PRN 03/12/25 03/12/25 History aerosol inhaler (Ventolin HFA) Shortness Of Breath budesonide-formoterol HFA 160 2 puff inhalation BID 03/12/25 03/12/25 History mcg-4.5 mcg/actuation aerosol inhaler (Symbicort) gabapentin 300 mg capsule 300 mg PO DAILY 03/12/25 03/12/25 History omeprazole 20 mg capsule,delayed 20 mg PO DAILY 03/12/25 03/12/25 History release paroxetine HCl 10 mg tablet 10 mg PO DAILY 03/12/25 03/12/25 History New Prescriptions to Start Prescriptions: Allergies Allergy/AdvReac Type Severity Reaction Status Date / Time No Known Allergies Allergy Verified 03/12/25 14:54 Exam Data for Last 24 hours Vital signs and Labs for Last 24 Hours: Temp Pulse Resp BP Pulse Ox O2 Del Method 98.0 F 98 H 15 115/71 92 L Room Air 03/12/25 12:39 03/12/25 14:00 03/12/25 14:00 03/12/25 14:00 03/12/25 14:00 03/12/25 14:00 Laboratory Results - last 24 hr 03/12/25 : WBC 13.4 H, RBC 4.50 L, Hgb 13.7 L, Hct 40.4 L, MCV 89.8, MCH 30.4, MCHC 33.9, RDW 13.1, Plt Count 255, MPV 9.8, Neut % (Auto) 80.7 H, Lymph % (Auto) 12.7, [place] % (Auto) 5.1, Eos % (Auto) 0.2, Baso % (Auto) 0.3, Neut # (Auto) 10.8 H, Lymph # (Auto) 1.7, [place] # (Auto) 0.7, Eos # (Auto) 0.0, Baso # (Auto) 0.0, PT 11.4, INR 1.03, D-Dimer 0.58 H, Sodium 136, Potassium 4.0, Chloride 103, Carbon Dioxide 22, Anion Gap 15.0, BUN 11, Creatinine 1.00, Estimated Creat Clear 85, Estimated GFR 77, Est GFR ( Amer) 94, Glucose 145 H, Calcium 8.6, Magnesium 1.9, Total Bilirubin 0.3, AST 75 H, ALT 28, Alkaline Phosphatase 69, Troponin I 1.35 H, NT-Pro-B Natriuret Pep 380 H, Total Protein 5.9 L, Albumin 3.6, Globulin 2.3, Albumin/Globulin Ratio 1.6, Lipase 57 I & O for Last 24 hours: Intake & Output 03/09/25 03/10/25 03/11/25 03/12/25 23:59 23:59 23:59 23:59 Weight 72.575 kg Constitutional Constitutional: no acute distress, thin and cooperative *Routine HEENT Exam Head: Present normocephalic Eye: Present EOMI and PERRL ENT: Present mucous membranes moist *Routine Neck Exam Neck: Present supple; Absent lymphadenopathy *Routine Respiratory Exam Respiratory: Present CTA bilaterally; Absent respiratory distress, rhonchi, stridor or wheezes *Routine Cardiovascular Exam Cardiovascular: Present RRR *Routine Abdominal Exam Abdominal: Present soft and normoactive bowel sounds; Absent tenderness *Routine Rectal Exam Rectal:: deferred *Routine Genitalia Exam Genitalia:: deferred *Routine Extremities Exam Extremities: Absent cyanosis, clubbing or edema Comments: Right wrist with compression bracelet on *Routine Skin Exam Skin: Present intact and warm; Absent rash *Routine Neurological Exam Neurological: Present alert, oriented X3 and moving all extremities; Absent altered mental status Assessment and Plan *Assessment and plan (1) STEMI (ST elevation myocardial infarction): Status: Acute Category: Medical Code(s): I21.3 - ST elevation (STEMI) myocardial infarction of unspecified site (2) Tobacco use disorder: Status: Acute Category: Medical Code(s): F17.200 - Nicotine dependence, unspecified, uncomplicated (3) COPD (chronic obstructive pulmonary disease): Status: Chronic Category: Medical Code(s): J44.9 - Chronic obstructive pulmonary disease, unspecified (4) GERD (gastroesophageal reflux disease): Status: Chronic Category: Medical Code(s): K21.9 - Gastro-esophageal reflux disease without esophagitis Plan 54-year-old male who presented with chest pain. Found to have STEMI. Taken to the Community Service Manager from the ER. Received 3 stents to the proximal LAD. Heart function appears to be reduced on ventriculogram. Discussed case with malt house kiln operator, request admission for inpatient management for at least 48 hours after WV. I agreed to admit for further care. Echo ordered. Started on DAPT therapy. Further management pending workup. Cardiology to evaluate in the morning. Problems addressed as follows: STEMI CAD - Initially concern for NSTEMI, called STEMI after severity of blockage and changes noted in heart function and EKG. Received 3 stents to a subtotal proximal LAD occlusion. - Cardiology consulted to assist with care. Monitor on telemetry - Initiate on aspirin 81 mg daily and prasugrel 10 mg daily - Initial troponin elevated at 1.1. - Echo ordered and pending - Lipid panel ordered for the morning - Will advance GDMT pending heart function and blood pressure - White count 13.4, hemoglobin 13.7, kidney function stable with BUN 11, creatinine 1. Glucose 145, A1c 6.0. Prediabetic. Troponin elevated at 1.35 on presentation. - Per my review of EKG, had ST changes in leads 345 with depressions in aVF; widened Q in V1 through 4 concerning for anteroseptal WV - Repeat CBC, CMP, magnesium ordered for the morning Tobacco use disorder: Offered patches, patient states he breaks out from patches. Recommended family to bring in gum or nicotine pouches. We will administer if they bring them in COPD: Continue DuoNebs every 4 hours as needed. No wheeze on exam GERD: Continue pantoprazole IV 40 mg nightly Full code Heparin subcu 3 times daily Cardiac diet
[2025-03-12] MEDS: IOPAMIDOL-370 (76%);100ML BOTTLE 225 ML IV (14:28)
[2025-03-12 14:30] LABS: CATHL Activated Clotting Time 338 SEC (74-125)
[2025-03-12 14:40] LABS: Hemoglobin A1C 6.0 % (4.0-6.0)
--- NOTE | 2025-03-12 15:50 | CA_ITS ---
APPROVED REPORT EXAM: Comprehensive 2D, Doppler, and color-flow Echocardiogram Picker Tender: Susan Pradhan RVT Ht: 5 ft 7 in Wt: 160lbs BSA: 1.84 BP: 115/71 mmHg Indications: STEMI,CHEST PAIN Echo Enhancing Agent Indication: Endocardial border delineation Agent(s) / Amount(s) Used: Definity 2 cc 2D Dimensions LA Volume 13.40 mL LA Volume Index 7.28 mL/m2 (M/F) 16-34 M-Mode Dimensions RVDd 1.32 cm (0.9-2.6) LA Diam 2.65 cm (1.9-4.0) LVDd 4.77 cm (3.5-5.7) LVDs 4.13 cm (3.5-5.7) IVSd 1.00 cm (0.6-1.1) PWd 0.50 cm (0.6-1.1) EF (Teich) 28.80% FS 13.40% EDV (Teich) 106.00 mL TAPSE 1.78 (<1.7) ESV (Teich) 75.50 mL LV Diastology E Decel Time 150 (160-240 msec) E/A Ratio 1.0 Aortic Valve AoV Peak Alireza. 66.0 (50-130 cm/s) AO Peak GR. 1.70 mmHg AO Mean GR. 0.90 (<5 mmHg) AO VTI 12.1 (18-25 cm) MADDY (VTI) 3.48 (2.5-4.5 cm2) Mitral Valve MV E Max Alireza. 48.0 (40-130 cm/s) MV A Velocity 50.0 (40-130 cm/s) E/A Ratio 0.97 MV PHT 44.0 ms Pulmonary Valve PV Peak Velocity 43.0 (50-150 cm/s) Left Ventricle The left ventricle is normal size. Left ventricular systolic function is severely decreased. There is normal LV wall thickness. There is severe global hypokinesis present. The septal, anteroseptal, and inferoseptal LV sol are akinetic. Grade 1 diastolic dysfunction is present. No left ventricle thrombus noted on this study. LVEF is 20%. Right Ventricle The right ventricle is not well-visualized, but grossly appears normal in size and function. Atria The left atrium size is normal. The right atrium size is normal. There is no Doppler evidence of interatrial shunt. Aortic Valve The aortic valve is mildly thickened. There is no aortic valvular stenosis. No aortic regurgitation is present. Mitral Valve The mitral valve is normal in structure. No evidence of mitral valve stenosis. Mild mitral regurgitation. Tricuspid Valve Tricuspid valve is grossly normal in structure and function. Trace tricuspid regurgitation. There is insufficient TR jet to estimate RVSP. Pulmonic Valve The pulmonary valve is normal in structure. Trace pulmonic regurgitation. Great Vessels The aortic root is normal in size. IVC is normal in size and collapses >50% with inspiration. Pericardium There is no pericardial effusion. Other Information Study Quality: Fair Conclusion Severe reduction in LV systolic function (LVEF 20%). The septal, anteroseptal, and inferoseptal LV sol are akinetic. Mild MR. Electronically signed by : Fawn Haas MD 03/12/2025 23:41:56
[2025-03-12] MEDS: DEFINITY US ECHO CONTRAST 2ML INJ 2 MG IV (16:39)
[2025-03-12] MEDS: NICOTINE 21MG/24HR PATCH 21 MG TD (17:15)
[2025-03-12 17:34] LABS: Hepatitis C Ab Qual. W/ RFX NEGATIVE (Negative)
--- NOTE | 2025-03-12 17:43 | PC.NURSE ---
1715 - Pt had a 17 beat run of v-tach noted on the monitor. Pt assessed and found sitting up in bed w/ eyes closed. Pt awoke easily and stated he felt fine and that the chest pain he had earlier had since improved. No new complaints voiced. VSS. Dr. Brasher contacted and notified. No new orders @ this time.
[2025-03-12 19:53] LABS: Thyroid Stimulating Hormone 2.65 uIU/mL (0.465-4.68)
[2025-03-12] MEDS: HYDROCODONE/APAP 5/325 MG TABLET 2 TAB PO (20:02)
[2025-03-12] MEDS: PANTOPRAZOLE 40MG VIAL 40 MG IV (20:03)
[2025-03-12] MEDS: PROMETHAZINE HCL 25MG/ML 1ML VIAL 25 MG IV (20:35)
[2025-03-12] MEDS: ONDANSETRON 4MG/2ML VIAL 4 MG IV (21:34)
[2025-03-12] MEDS: diazePAM 5MG TABLET 5 MG PO (21:38)
[2025-03-13] VITALS (13 sets, daily range): BP systolic 93–125; BP diastolic 59–90; PULSE 90–120; RESP 14–28; TEMP 36.6–38; O2SAT 96–98; BMI 25.0; BMI 25.7
[2025-03-13] MEDS: PROMETHAZINE HCL 25MG/ML 1ML VIAL 12.5 MG IV ×3 (00:40→13:59)
[2025-03-13] MEDS: IPRATROPIUM/ALBUTEROL 3 ML NEB IH (05:29)
[2025-03-13 06:05] LABS: Hematocrit 43.2 % (42.0-52.0); Hemoglobin 14.6 g/dL (14.1-18.0); Immature Granulocytes % 1.1 %; Mean Corpuscular HGB Conc 33.8 g/dL (31.8-35.4); Mean Corpuscular Hemoglobin 30.4 pg (27.0-31.2); Mean Corpuscular Volume 90.0 fl (80-94); Nucleated Red Blood Cells % 0 %; Platelet Count 245 K/mm3 (142-424); Red Blood Count 4.80 M/mm3 (4.60-6.20); Red Cell Distribution Width-SD 44.3 fL; White Blood Count 17.6 K/mm3 (4.8-10.8)
[2025-03-13 06:15] LABS: Alanine Aminotransferase 61 U/L (12-78); Albumin Level 3.8 g/dl (3.5-5.0); Albumin/Globulin Ratio 1.6 (1.1-1.8); Alkaline Phosphatase 66 U/L (38-126); Anion Gap 14.4 mEq/L (5-15); Aspartate Amino Transferase 429 U/L (17-59); Bilirubin,Total 0.5 mg/dl (0.2-1.3); Blood Urea Nitrogen 10 mg/dl (9-20); Calcium 8.6 mg/dl (8.4-10.2); Carbon Dioxide 23 mmol/L (22.0-30.0); Chloride 103 mmol/L (98-107); Cholesterol 158 mg/dl (140-200); Creatinine Clearance Estimated 94 mL/min (50-200); Creatinine,Serum 0.90 mg/dl (0.66-1.25); Estimated Glomerular Filt Rate 87 ml/min (>60); GFR (African American) 106 ML/MIN (>60); Globulin 2.4 g/dL (1.3-3.2); Glucose 138 mg/dl (74-100); HDL Cholesterol 45 mg/dl (40-60); Magnesium 2.2 mg/dl (1.6-2.3); Potassium 4.4 mmoL/L (3.5-5.1); Sodium 136 mmol/L (136-145); Total Protein,Serum 6.2 g/dl (6.3-8.2); Triglycerides 68 mg/dl (30-150)
--- NOTE | 2025-03-13 06:23 | PC.NURSE ---
Patient is resting in bed with hob elevated, patient did have several episodes and complaints of nausea. Was treated with phenergan x2, zofran x1 and then was finally able to sleep for a few hours. Patient has ambulated in the galloway x2 each 250 ft and tolerated well. Patient's HR has ranged from 80-110 and pox is 98%, patient has been belching most of the night. NAD noted in condition and VSS at this time. IV patent in the left AC region and is SL at this time.
[2025-03-13] MEDS: ASPIRIN EC 81MG TABLET 81 MG PO (08:05)
[2025-03-13] MEDS: PRASUGREL 10MG TAB 10 MG PO (08:05)
[2025-03-13] MEDS: EMPAGLIFLOZIN 10MG TABLET 10 MG PO (10:05)
[2025-03-13] MEDS: SACUBITRIL/VALSARTAN 24-26MG TABLET 1 EACH PO ×2 (10:05→20:15)
[2025-03-13] MEDS: METOPROLOL SUCCINATE XL 25MG TABLET 25 MG PO (10:05)
--- NOTE | 2025-03-13 10:21 | P.CONCA_ITS ---
History of Present Illness History of Present Illness Consult date: 03/13/25 Requesting physician: Champ Brasher Chief complaint: CP History of present illness: 54-year-old white male without known prior cardiovascular disease but long-term tobacco use and former alcohol abuse presented to the emergency room yesterday with complaints of greater than 12 hours of chest pain. He states symptoms began at rest and initially were episodic but became constant and associated with nausea and vomiting. In the emergency department he was found to have significant anterior Q waves and elevated troponin greater than 1 so he was taken to the Policyholder Information Clerk for late presentation anterior wall STEMI. In the Policyholder Information Clerk patient was found to have critical disease of the LAD and first diagonal which were stented successfully. 70% left circumflex was left to medical management for now. 2D echo has revealed EF 20% with septal anteroseptal and inferoseptal akinesis. Patient stable overnight with no ventricular ectopy. His test results and prognosis were reviewed with him in detail this morning. He reports some mild ongoing pleuritic chest pain post NE and voices that he is agreeable to GDMT for CAD and heart failure. Also agreeable to LifeVest. [facility] Disclaimer: The information contained in this section may have been updated after the alba cheema was seen, as this information can be updated by other users. Medical History GERD (gastroesophageal reflux disease) Arthritis Hiatal hernia COPD (chronic obstructive pulmonary disease) Surgical History History of removal of cyst History of banding of hemorrhoid Family History Other Family history of cancer Family history of coronary artery disease Social History Smoking Status: Current every day smoker tobacco type: cigarettes packs per day: 1 second hand exposure: Yes alcohol intake: never current occupational status: employed Travel in the last 8 weeks?: None Have you lived/traveled outside US in past 30 days?: No Contact w/someone who lives/traveled outside US past 30 days?: No Exposure to someone with infectious disease in past 14 days?: No Do you have a fever (greater than 100.4 F or 38 C)?: No Have you tested positive for COVID-19?: No Exposed to someone with COVID-19 in past 14 days?: No Do you have a sore throat?: No Do you have a cough?: No Do you have any weakness?: No Do you have any diarrhea?: No Are you experiencing any unusual bleeding?: No Do you have any muscle aches/pain?: No Do you have any abdominal pain?: No Are you experiencing loss of taste or smell?: No Review of Systems Constitutional Constitutional: Denies fatigue and Denies weakness Eyes Eyes: Denies loss of vision ENT Ears, Nose, Mouth, and Throat: Denies hearing loss and Denies vertigo *Cardiovascular Cardiovascular: Reports chest pain, Denies dyspnea and Denies syncope *Respiratory Respiratory: Denies cough and Denies dyspnea *Gastrointestinal Gastrointestinal: Denies change in stool character, Denies nausea and Denies vomiting *Genitourinary Genitourinary: Denies difficulty urinating *Musculoskeletal Musculoskeletal: Denies muscle weakness Integumentary/Breasts Skin/Breast: Denies changing lesions *Neurologic Neurologic: Denies loss of vision, Denies syncope, Denies vertigo and Denies weakness Endocrine Endocrine: Denies fatigue Exam Data for Last 24 hours Vital signs and Labs for Last 24 Hours: Temp Pulse Resp BP Pulse Ox O2 Del Method 98.5 F 105 H 14 118/71 98 Room Air 03/13/25 10:00 03/13/25 10:00 03/13/25 10:00 03/13/25 10:00 03/13/25 10:00 03/13/25 10:00 Laboratory Results - last 24 hr 03/12/25 13:29: Activated Clotting Time 338 H* 03/12/25 : WBC 13.4 H, RBC 4.50 L, Hgb 13.7 L, Hct 40.4 L, MCV 89.8, MCH 30.4, MCHC 33.9, RDW 13.1, Plt Count 255, MPV 9.8, Neut % (Auto) 80.7 H, Lymph % (Auto) 12.7, [place] % (Auto) 5.1, Eos % (Auto) 0.2, Baso % (Auto) 0.3, Neut # (Auto) 10.8 H, Lymph # (Auto) 1.7, [place] # (Auto) 0.7, Eos # (Auto) 0.0, Baso # (Auto) 0.0, PT 11.4, INR 1.03, D-Dimer 0.58 H, Sodium 136, Potassium 4.0, Chloride 103, Carbon Dioxide 22, Anion Gap 15.0, BUN 11, Creatinine 1.00, Estimated Creat Clear 85, Estimated GFR 77, Est GFR ( Amer) 94, Glucose 145 H, Hemoglobin A1c 6.0, Calcium 8.6, Magnesium 1.9, Total Bilirubin 0.3, AST 75 H, ALT 28, Alkaline Phosphatase 69, Troponin I 1.35 H, NT-Pro-B Natriuret Pep 380 H, Total Protein 5.9 L, Albumin 3.6, Globulin 2.3, Albumin/Globulin Ratio 1.6, Lipase 57, TSH 2.65, HCV Ab LIZBETH w/Rflx PCR Qn Negative, HIV Ag/Ab Combo Qual Negative 03/13/25 05:45: WBC 17.6 H D, RBC 4.80, Hgb 14.6, Hct 43.2, MCV 90.0, MCH 30.4, MCHC 33.8, RDW 13.4, Plt Count 245, MPV 10.0, Neut % (Auto) 77.9, Lymph % (Auto) 12.1, [place] % (Auto) 8.5, Eos % (Auto) 0.0 L, Baso % (Auto) 0.4, Neut # (Auto) 13.7 H, Lymph # (Auto) 2.1, [place] # (Auto) 1.5 H, Eos # (Auto) 0.0, Baso # (Auto) 0.1, Sodium 136, Potassium 4.4, Chloride 103, Carbon Dioxide 23, Anion Gap 14.4, BUN 10, Creatinine 0.90, Estimated Creat Clear 94, Estimated GFR 87, Est GFR ( Amer) 106, Glucose 138 H, Calcium 8.6, Magnesium 2.2 D, Total Bilirubin 0.5, AST 429 H* D, ALT 61 D, Alkaline Phosphatase 66, Total Protein 6.2 L, Albumin 3.8, Globulin 2.4, Albumin/Globulin Ratio 1.6, Triglycerides 68, Cholesterol 158, LDL Cholesterol Direct 74.09 L, VLDL Cholesterol 14, HDL Cholesterol 45, Cholesterol/HDL Ratio 3.5 I & O for Last 24 hours: Intake & Output 07/05/25 07/06/25 07/07/25 07/08/25 23:59 23:59 23:59 23:59 Intake Total 460 / 750 470 / 470 Output Total 450 / 450 100 / 100 Balance 10 / 300 370 / 370 Weight 160 lb 159 lb 12.657 oz Constitutional Constitutional: no acute distress and cooperative *Routine HEENT Exam Eye: Present PERRL *Routine Respiratory Exam Respiratory: Present CTA bilaterally; Absent accessory muscle use, wheezes or crackles *Routine Cardiovascular Exam Cardiovascular: Present RRR, Normal S1 and Normal S2; Absent murmur, gallop or rubs *Routine Abdominal Exam Abdominal: Present soft; Absent tenderness *Routine Extremities Exam Extremities: Present pulses intact; Absent cyanosis or edema *Routine Skin Exam Skin: Present intact; Absent erythema or wounds *Routine Neurological Exam Neurological: Present alert and oriented X3 Routine Psychiatric Exam Psychiatric: Present cooperative Meds Home Medications and Allergies Home Medications ?Medication ?Instructions ?Recorded ?Confirmed ?Type albuterol sulfate 90 mcg/actuation 2 puff inhalation Q 4HP PRN 03/12/25 03/12/25 History aerosol inhaler (Ventolin HFA) Shortness Of Breath budesonide-formoterol HFA 160 2 puff inhalation BID 03/12/25 History mcg-4.5 mcg/actuation aerosol inhaler (Symbicort) gabapentin 300 mg capsule 300 mg PO DAILY 03/12/2503/30 History omeprazole 20 mg capsule,delayed 20 mg PO DAILY 03/12/25 History release paroxetine HCl 10 mg tablet 10 mg PO DAILY 03/12/25 History New Prescriptions to Start Prescriptions: Allergies Allergy/AdvReac Type Severity Reaction Status Date / Time No Known Allergies Allergy Verified 03/12/25 14:54 Assessment and Plan *Assessment and plan (1) STEMI (ST elevation myocardial infarction): Status: Acute Category: Medical Code(s): I21.3 - ST elevation (STEMI) myocardial infarction of unspecified site (2) HFrEF (heart failure with reduced ejection fraction): Status: Acute Category: Medical Code(s): I50.20 - Unspecified systolic (congestive) heart failure (3) Tobacco abuse: Status: Acute Category: Medical Code(s): Z72.0 - Tobacco use Plan Late Presentation AW-STEMI - new dx this admission with angina, anterior lead q-waves, and elevated Trop - LHC - Severe dz in LAD/1st diagonal stented successfully. LCX 70% left to med management - ECHO - EF 20% septal, anteroseptal, inferoseptal LV sol are akinetic - Plan: 48 obs post NE. DAPT, BB, Statin, GDMT for HF. LifeVest. HFrEF, Ischemic Cardiomyopathy - new dx this admission with EF 20% and septal, anteroseptal, inferoseptal LV wall akinesis - secondary to late presentation NE - reviewed with patient in detail, late presentation portends poor myocardial recovery - No evidence of vol overload at this time - Add Toprol XL, Entresto, Jardiance. Hold on Aldactone for now due to low BP. Hopefully add later - Pt agreeable to Lifevest for now. Will repeat limited ECHO 1 month to assess LV recovery. Consider ICD at that time. Transaminitis - AST only - secondary to STEMI, ALT normal, ok to give statin Tob Use, presumed COPD - recommend complete cessation, pt agreeable, currently wearing transdermal Nicotine - continue home inhalers Hyperlipidemia - LDL 74, goal is <55 - hold statin for now due to transaminitis Leukocytosis - 17k, presumed from NE - monitor for other signs of infection CV Summary 03/13: CV stable, med adjustments today, 48h obs for VT/VF, start LifeVest prior-auth, prn meds for pain/anxiety - defer to primary service
--- NOTE | 2025-03-13 11:35 | PC.NURSE ---
Patient arrived at [facility] from the ICU via wheelchair @[id number]
[2025-03-13] MEDS: BELLADONNA ALKALOIDS 60 ML ML PO (13:49)
[2025-03-13] MEDS: PARoxetine 10MG TABLET 10 MG PO (13:51)
--- NOTE | 2025-03-13 13:59 | CT_ITS ---
FINAL REPORT TECHNIQUE: The patient was injected with IV contrast. Axial images were obtained through the chest in a PE protocol. 3-D reconstruction images were also performed. Individualized dose reduction techniques using automated exposure control or adjustment of the MA and/or KV according to patient's size were employed. CLINICAL HISTORY: Refractory chest pain, sepsis workup COMPARISON: None FINDINGS: Mediastinal vasculature is adequately opacified. No pulmonary artery filling defects are identified to suggest PE. There is no aortic dissection. There is no axillary adenopathy. There is no hilar or mediastinal adenopathy. The heart size is normal. There is no pericardial or pleural effusion. Limited images of the upper abdomen demonstrate increased density of the gallbladder probably related to vicarious excretion of contrast. There is mild bibasilar atelectasis. IMPRESSION: No pulmonary embolus or dissection. Mild bibasilar atelectasis. Reviewed, Interpreted and Dictated by Adilson Devries MD Transcribed by [employer] Authenticated and [facility]
[2025-03-13 14:16] LABS: Microscopic, Urine URINE MICROSCOPIC (MICROSCOPIC)
[2025-03-13] MEDS: IOPAMIDOL-370 (76%);100ML BOTTLE 85 ML IV (14:38)
[2025-03-13] MEDS: 0.9 % SODIUM CHLORIDE 50 ML VIAL IV (14:38)
[2025-03-13] MEDS: SODIUM CHLORIDE 0.9% 10ML SYR (RAD ONLY) 10 ML IV (14:38)
[2025-03-13 14:44] LABS: Bilirubin,Urine Negative (Negative); Color,Urine YELLOW (Yellow); Glucose,Urine (UA) Negative (Negative); Ketones,Urine Negative (Negative); Leukocyte Esterase,Urine Negative (Negative); PH,Urine 7.5 (5.0-8.5); Protein,Urine Negative (Negative); Specific Gravity, Urine 1.015 (1.005-1.030); Urobilinogen,Urine 0.2 EU/dl (0.2)
--- NOTE | 2025-03-13 17:46 | P.PN_ITS ---
Subjective *Date: 03/13/25 *Time: 21:35 Exam Data for Last 24 hours Vital signs and Labs for Last 24 Hours: Temp Pulse Resp BP Pulse Ox O2 Del Method 97.8 F 105 H 22 111/67 98 Room Air 03/13/25 16:00 03/13/25 16:00 03/13/25 16:00 03/13/25 16:00 03/13/25 16:00 03/13/25 16:00 Laboratory Results - last 24 hr 03/12/25 : TSH 2.65 03/13/25 05:45: WBC 17.6 H D, RBC 4.80, Hgb 14.6, Hct 43.2, MCV 90.0, MCH 30.4, MCHC 33.8, RDW 13.4, Plt Count 245, MPV 10.0, Neut % (Auto) 77.9, Lymph % (Auto) 12.1, [place] % (Auto) 8.5, Eos % (Auto) 0.0 L, Baso % (Auto) 0.4, Neut # (Auto) 13.7 H, Lymph # (Auto) 2.1, [place] # (Auto) 1.5 H, Eos # (Auto) 0.0, Baso # (Auto) 0.1, Sodium 136, Potassium 4.4, Chloride 103, Carbon Dioxide 23, Anion Gap 14.4, BUN 10, Creatinine 0.90, Estimated Creat Clear 94, Estimated GFR 87, Est GFR ( Amer) 106, Glucose 138 H, Calcium 8.6, Magnesium 2.2 D, Total Bilirubin 0.5, AST 429 H* D, ALT 61 D, Alkaline Phosphatase 66, Total Protein 6.2 L, Albumin 3.8, Globulin 2.4, Albumin/Globulin Ratio 1.6, Triglycerides 68, Cholesterol 158, LDL Cholesterol Direct 74.09 L, VLDL Cholesterol 14, HDL Cholesterol 45, Cholesterol/HDL Ratio 3.5 03/13/25 07:57: Urine Color Yellow, Urine Appearance Clear, Urine pH 7.5, Ur Specific Parnell 1.015, Urine Protein Negative, Urine Glucose (UA) Negative, Urine Ketones Negative, Urine Blood Negative, Urine Nitrate Negative, Urine Bilirubin Negative, Urine Urobilinogen 0.2, Ur Leukocyte Esterase Negative, Urine RBC None, Urine WBC None, Ur Squamous Epith Cells None, Urine Bacteria None Temp Pulse Resp BP Pulse Ox O2 Del Method 98.5 F 105 H 14 118/71 98 Room Air 03/13/25 10:00 03/13/25 10:00 03/13/25 10:00 03/13/25 10:00 03/13/25 10:00 03/13/25 10:00 Laboratory Results - last 24 hr 03/12/25 13:29: Activated Clotting Time 338 H* 03/12/25 : WBC 13.4 H, RBC 4.50 L, Hgb 13.7 L, Hct 40.4 L, MCV 89.8, MCH 30.4, MCHC 33.9, RDW 13.1, Plt Count 255, MPV 9.8, Neut % (Auto) 80.7 H, Lymph % (Auto) 12.7, [place] % (Auto) 5.1, Eos % (Auto) 0.2, Baso % (Auto) 0.3, Neut # (Auto) 10.8 H, Lymph # (Auto) 1.7, [place] # (Auto) 0.7, Eos # (Auto) 0.0, Baso # (Auto) 0.0, PT 11.4, INR 1.03, D-Dimer 0.58 H, Sodium 136, Potassium 4.0, Chloride 103, Carbon Dioxide 22, Anion Gap 15.0, BUN 11, Creatinine 1.00, Estimated Creat Clear 85, Estimated GFR 77, Est GFR ( Amer) 94, Glucose 145 H, Hemoglobin A1c 6.0, Calcium 8.6, Magnesium 1.9, Total Bilirubin 0.3, AST 75 H, ALT 28, Alkaline Phosphatase 69, Troponin I 1.35 H, NT-Pro-B Natriuret Pep 380 H, Total Protein 5.9 L, Albumin 3.6, Globulin 2.3, Albumin/Globulin Ratio 1.6, Lipase 57, TSH 2.65, HCV Ab LIZBETH w/Rflx PCR Qn Negative, HIV Ag/Ab Combo Qual Negative 03/13/25 05:45: WBC 17.6 H D, RBC 4.80, Hgb 14.6, Hct 43.2, MCV 90.0, MCH 30.4, MCHC 33.8, RDW 13.4, Plt Count 245, MPV 10.0, Neut % (Auto) 77.9, Lymph % (Auto) 12.1, [place] % (Auto) 8.5, Eos % (Auto) 0.0 L, Baso % (Auto) 0.4, Neut # (Auto) 13.7 H, Lymph # (Auto) 2.1, [place] # (Auto) 1.5 H, Eos # (Auto) 0.0, Baso # (Auto) 0.1, Sodium 136, Potassium 4.4, Chloride 103, Carbon Dioxide 23, Anion Gap 14.4, BUN 10, Creatinine 0.90, Estimated Creat Clear 94, Estimated GFR 87, Est GFR ( Amer) 106, Glucose 138 H, Calcium 8.6, Magnesium 2.2 D, Total Bilirubin 0.5, AST 429 H* D, ALT 61 D, Alkaline Phosphatase 66, Total Protein 6.2 L, Albumin 3.8, Globulin 2.4, Albumin/Globulin Ratio 1.6, Triglycerides 68, Cholesterol 158, LDL Cholesterol Direct 74.09 L, VLDL Cholesterol 14, HDL Cholesterol 45, Cholesterol/HDL Ratio 3.5 I & O for Last 24 hours: Intake & Output 03/10/25 03/11/25 03/12/25 03/13/25 23:59 23:59 23:59 23:59 Intake Total 460 / 750 470 / 470 Output Total 450 / 450 550 / 550 Balance 10 / 300 -80 / -80 Weight 72.575 kg 72.48 kg Intake & Output 03/10/25 03/11/25 03/12/25 03/13/25 23:59 23:59 23:59 23:59 Intake Total 460 / 750 470 / 470 Output Total 450 / 450 100 / 100 Balance 10 / 300 370 / 370 Weight 160 lb 159 lb 12.657 oz Constitutional Constitutional: no acute distress and cooperative *Routine HEENT Exam Eye: Present PERRL *Routine Respiratory Exam Respiratory: Present CTA bilaterally; Absent accessory muscle use, wheezes or crackles *Routine Cardiovascular Exam Cardiovascular: Present RRR, Normal S1 and Normal S2; Absent murmur, gallop or rubs *Routine Abdominal Exam Abdominal: Present soft; Absent tenderness *Routine Extremities Exam Extremities: Present pulses intact; Absent cyanosis or edema *Routine Skin Exam Skin: Present intact; Absent erythema or wounds *Routine Neurological Exam Neurological: Present alert and oriented X3 Routine Psychiatric Exam Psychiatric: Present cooperative Assessment and Plan *Assessment and plan (1) STEMI (ST elevation myocardial infarction): Status: Acute Category: Medical Code(s): I21.3 - ST elevation (STEMI) myocardial infarction of unspecified site (2) Tobacco use disorder: Status: Acute Category: Medical Code(s): F17.200 - Nicotine dependence, unspecified, uncomplicated (3) COPD (chronic obstructive pulmonary disease): Status: Chronic Category: Medical Code(s): J44.9 - Chronic obstructive pulmonary disease, unspecified (4) GERD (gastroesophageal reflux disease): Status: Chronic Category: Medical Code(s): K21.9 - Gastro-esophageal reflux disease without esophagitis Rolando Loera is a 54-year-old male who presented with chest pain. Found to have STEMI. Taken to the Medical Education Manager from the ER. Received 3 stents to the proximal LAD, 1 stent to first diagonal artery. STEMI CAD - Initially concern for NSTEMI, called STEMI after severity of blockage and changes noted in heart function and EKG. Received 3 stents to a subtotal proximal LAD occlusion. - Cardiology consulted to assist with care. Monitor on telemetry for 48 hours. -Continue on aspirin 81 mg daily and prasugrel 10 mg daily - Initial troponin elevated at 1.1. - ECHO shows LVEF 20%. LifeVest ordered, cardiology starting GDMT including metoprolol succinate, Entresto, Jardiance. Will hold off on Aldactone for now. - Repeat CBC, CMP, magnesium ordered for the morning. #GERD ? Patient continues to have burning chest pain, alleviated with GI cocktail. CTA chest unremarkable. ? Continue Protonix 40 mg daily. #Fever ? Patient had a fever of 100.4 Fahrenheit at midnight, WBC 17.4. Improving this afternoon. ? No signs of bacterial infection including chest imaging, UA. ? Follow-up blood cultures, respiratory panel. Tobacco use disorder: Offered patches, patient states he breaks out from patches. Recommended family to bring in gum or nicotine pouches. We will administer if they bring them in COPD: Continue DuoNebs every 4 hours as needed. No wheeze on exam GERD: Continue pantoprazole IV 40 mg nightly Full code Heparin subcu 3 times daily Cardiac diet
[2025-03-13 18:12] LABS: Hematocrit 45.0 % (42.0-52.0); Hemoglobin 15.1 g/dL (14.1-18.0); Immature Granulocytes % 0.8 %; Mean Corpuscular HGB Conc 33.6 g/dL (31.8-35.4); Mean Corpuscular Hemoglobin 30.3 pg (27.0-31.2); Mean Corpuscular Volume 90.4 fl (80-94); Nucleated Red Blood Cells % 0 %; Platelet Count 240 K/mm3 (142-424); Red Blood Count 4.98 M/mm3 (4.60-6.20); Red Cell Distribution Width-SD 45.2 fL; White Blood Count 15.6 K/mm3 (4.8-10.8)
[2025-03-13 18:20] LABS: Alanine Aminotransferase 50 U/L (12-78); Albumin Level 3.6 g/dl (3.5-5.0); Albumin/Globulin Ratio 1.4 (1.1-1.8); Alkaline Phosphatase 59 U/L (38-126); Anion Gap 11.7 mEq/L (5-15); Aspartate Amino Transferase 219 U/L (17-59); Bilirubin,Total 0.6 mg/dl (0.2-1.3); Blood Urea Nitrogen 10 mg/dl (9-20); Calcium 8.7 mg/dl (8.4-10.2); Carbon Dioxide 25 mmol/L (22.0-30.0); Chloride 102 mmol/L (98-107); Creatinine Clearance Estimated 85 mL/min (50-200); Creatinine,Serum 1.00 mg/dl (0.66-1.25); Estimated Glomerular Filt Rate 77 ml/min (>60); GFR (African American) 94 ML/MIN (>60); Globulin 2.6 g/dL (1.3-3.2); Glucose 100 mg/dl (74-100); Potassium 4.7 mmoL/L (3.5-5.1); Sodium 134 mmol/L (136-145); Total Protein,Serum 6.2 g/dl (6.3-8.2)
[2025-03-13] MEDS: HYDROCODONE/APAP 5/325 MG TABLET 2 TAB PO (18:37)
[2025-03-13] MEDS: ONDANSETRON 4MG/2ML VIAL 4 MG IV (18:37)
[2025-03-13] MEDS: SODIUM CHLORIDE 0.9% 10ML VIAL 10 ML IV (20:03)
[2025-03-13] MEDS: PANTOPRAZOLE 40MG VIAL 40 MG IV (20:03)
[2025-03-13] MEDS: ATORVASTATIN 40MG TABLET 80 MG PO (20:03)
[2025-03-14] VITALS (18 sets, daily range): BP systolic 61–99; BP diastolic 31–59; PULSE 60–90; RESP 16–23; TEMP 36.6–36.8; O2SAT 94–99; BMI 24.4
--- NOTE | 2025-03-14 04:25 | PC.NURSE ---
Vital sign assessments for 04:00 were hypotensive. Automatic readings were 83/53 (MAP 63) and 93/44 (MAP 60). Arcelia Harrington APRN was notified about the findings. The patient was previously noted to be resting in bed with eyes closed, his respirations were even and unlabored, and he was in no apparent distress. Asymptomatic. Arcelia Harrington APRN stated to continue to monitor the patient as necessary for now. Patient remains without any further complaints at this time.
--- NOTE | 2025-03-14 05:40 | PC.NURSE ---
Patient is alert and oriented x4. He was observed to have eyes closed, respirations even and unlabored on room air, and no apparent distress throughout the majority of the night. Right radial cath site was assessed; dressing remains clean, dry, and intact. Pulses +2, skin temperature even with surrounding areas. Throughout the majority of the night, the patient stated that he did not have any pain during rest. He reported having severe sternum pain this morning ( level 9 ); [place] will be given per MAR. Sternal pain is especially aggravated by deep inhalation and coughing. Phenergan to be administered as well for nausea complaint; patient stated that Zofran has not been previously helping. Overall, he stated that he is starting to feel better. Scheduled medications were administered as appropriately per MAR. Diminished lung sounds, irregular heart rhythm upon auscultation. On telemetry. Patient stated that his last bowel movement occurred > 2 days ago. Patient ambulates independently in his room/to the bathroom, standby assistance as needed. Soft blood pressures ongoing, C Juany HOSKINS aware. At this time, the patient is resting in bed without any further complaints. No new needs thus far. Call light within reach.
[2025-03-14 05:41] LABS: Adenovirus,PCR Not Detected (NotDetected); Chlamydophila Pneumoniae, PCR Not Detected (NotDetected); Coronavirus 19, PCR Not Detected (NotDetected); Coronovirus HKU1,PCR Not Detected (NotDetected); Influenza A, PCR Not Detected (NotDetected); Influenza AH1, 2009 Not Detected (NotDetected); Influenza AH1, PCR Not Detected (NotDetected); Influenza AH3,PCR Not Detected (NotDetected); Influenza B, PCR Not Detected (NotDetected); Mycoplasma Pneumoniae, PCR Not Detected (NotDetected); Parainfluenza 1, PCR Not Detected (NotDetected); Parainfluenza 2, PCR Not Detected (NotDetected); Parainfluenza 3, PCR Not Detected (NotDetected); Parainfluenza 4, PCR Not Detected (NotDetected)
[2025-03-14] MEDS: SODIUM CHLORIDE 0.9% 25ML BAG 25 ML IV (05:55)
[2025-03-14] MEDS: HYDROCODONE/APAP 5/325 MG TABLET 2 TAB PO ×2 (05:55→20:19)
[2025-03-14] MEDS: PROMETHAZINE HCL 25MG/ML 1ML VIAL 12.5 MG IV ×2 (05:55→20:19)
[2025-03-14 06:37] LABS: Hematocrit 43.5 % (42.0-52.0); Hemoglobin 14.5 g/dL (14.1-18.0); Immature Granulocytes % 0.9 %; Mean Corpuscular HGB Conc 33.3 g/dL (31.8-35.4); Mean Corpuscular Hemoglobin 30.0 pg (27.0-31.2); Mean Corpuscular Volume 90.1 fl (80-94); Nucleated Red Blood Cells % 0 %; Platelet Count 236 K/mm3 (142-424); Red Blood Count 4.83 M/mm3 (4.60-6.20); Red Cell Distribution Width-SD 45.2 fL; White Blood Count 14.1 K/mm3 (4.8-10.8)
[2025-03-14 06:48] LABS: Alanine Aminotransferase 37 U/L (12-78); Albumin Level 3.2 g/dl (3.5-5.0); Albumin/Globulin Ratio 1.3 (1.1-1.8); Alkaline Phosphatase 61 U/L (38-126); Anion Gap 10.5 mEq/L (5-15); Aspartate Amino Transferase 130 U/L (17-59); Bilirubin,Total 0.5 mg/dl (0.2-1.3); Blood Urea Nitrogen 14 mg/dl (9-20); Calcium 8.5 mg/dl (8.4-10.2); Carbon Dioxide 24 mmol/L (22.0-30.0); Chloride 103 mmol/L (98-107); Creatinine Clearance Estimated 73 mL/min (50-200); Creatinine,Serum 1.10 mg/dl (0.66-1.25); Estimated Glomerular Filt Rate 69 ml/min (>60); GFR (African American) 84 ML/MIN (>60); Globulin 2.5 g/dL (1.3-3.2); Glucose 83 mg/dl (74-100); Potassium 4.5 mmoL/L (3.5-5.1); Sodium 133 mmol/L (136-145); Total Protein,Serum 5.7 g/dl (6.3-8.2)
[2025-03-14] MEDS: ASPIRIN EC 81MG TABLET 81 MG PO (08:45)
[2025-03-14] MEDS: METOPROLOL SUCCINATE XL 25MG TABLET 25 MG PO (08:45)
[2025-03-14] MEDS: EMPAGLIFLOZIN 10MG TABLET 10 MG PO (08:45)
[2025-03-14] MEDS: PARoxetine 10MG TABLET 10 MG PO (08:45)
[2025-03-14] MEDS: PRASUGREL 10MG TAB 10 MG PO (08:45)
[2025-03-14] MEDS: 0.9 % SODIUM CHLORIDE 1000ML 250 ML IV (08:46)
--- NOTE | 2025-03-14 13:01 | P.PN_ITS ---
Subjective Subjective Date: 03/14/25 Time: 09:30 Interval history: Patient developed fever overnight and is positive for rhinovirus. Patient states pleuritic chest pain continued but is mild. His vitals are low this morning with a MAP of 67. No VT or VF noted. Exam Data for Last 24 hours Vital signs and Labs for Last 24 Hours: Temp Pulse Resp BP Pulse Ox O2 Del Method 97.9 F 69 16 80/52 L 99 Room Air 03/14/25 08:00 03/14/25 08:30 03/14/25 08:00 03/14/25 08:30 03/14/25 08:00 03/14/25 12:20 Laboratory Results - last 24 hr 03/13/25 07:57: Urine Color Yellow, Urine Appearance Clear, Urine pH 7.5, Ur Specific [place] 1.015, Urine Protein Negative, Urine Glucose (UA) Negative, Uri ne Ketones Negative, Urine Blood Negative, Urine Nitrate Negative, Urine Bilirubin Negative, Urine Urobilinogen 0.2, Ur Leukocyte Esterase Negative, Urine RBC None, Urine WBC None, Ur Squamous Epith Cells None, Urine Bacteria None 03/13/25 18:05: WBC 15.6 H, RBC 4.98, Hgb 15.1, Hct 45.0, MCV 90.4, MCH 30.3, MCHC 33.6, RDW 13.6, Plt Count 240, MPV 10.0, Neut % (Auto) 66.5, Lymph % (Auto) 24.2, [place] % (Auto) 7.9, Eos % (Auto) 0.2, Baso % (Auto) 0.4, Neut # (Auto) 10.4 H, Lymph # (Auto) 3.8, [place] # (Auto) 1.2 H, Eos # (Auto) 0.0, Baso # (Auto) 0.1, Sodium 134 L, Potassium 4.7, Chloride 102, Carbon Dioxide 25, Anion Gap 11.7, BUN 10, Creatinine 1.00, Estimated Creat Clear 85, Estimated GFR 77, Est GFR ( Amer) 94, Glucose 100 D, Calcium 8.7, Total Bilirubin 0.6, AST 219 H D , ALT 50, Alkaline Phosphatase 59, Total Protein 6.2 L, Albumin 3.6, Globulin 2.6, Albumin/Globulin Ratio 1.4 03/14/25 05:31: WBC 14.1 H, RBC 4.83, Hgb 14.5, Hct 43.5, MCV 90.1, MCH 30.0, MCHC 33.3, RDW 13.5, Plt Count 236, MPV 10.5 H, Neut % (Auto) 64.1, Lymph % (Auto) 25.0, [place] % (Auto) 9.0, Eos % (Auto) 0.6, Baso % (Auto) 0.4, Neut # (Auto) 9.0 H, Lymph # (Auto) 3.5, [place] # (Auto) 1.3 H, Eos # (Auto) 0.1, Baso # (Auto) 0.1, Sodium 133 L, Potassium 4.5, Chloride 103, Carbon Dioxide 24, Anion Gap 10.5, BUN 14 D, Creatinine 1.10, Estimated Creat Clear 73, Estimated GFR 69, Est GFR ( Amer) 84, Glucose 83, Calcium 8.5, Total Bilirubin 0.5, AST 130 H D, ALT 37 D, Alkaline Phosphatase 61, Total Protein 5.7 L, Albumin 3.2 L D, Globulin 2.5, Albumin/Globulin Ratio 1.3 03/14/25 05:35: Chlamy pneumoniae PCR Not detected, Adenovirus (PCR) Not detected, B. pertussis DNA (PCR) Not detected, Coronavirus OC43 (PCR) Not detected, Coronavirus HKU1 (PCR) Not detected, Coronavirus 229E (PCR) Not detected, SARS-CoV-2 (PCR) Not detected, Coronavirus NL63 (PCR) Not detected, Human Metapneumovir PCR Not detected, Influenza A (H1) PCR Not detected, Influ A (H1N1/09) PCR Not detected, Influenza A (H3) PCR Not detected, Influenza Type A (PCR) Not detected, Influenza Type B (PCR) Not detected, M. pneumoniae (PCR) Not detected, Parainfluenza 1 (PCR) Not detected, Parainfluenza 2 (PCR) Not detected, Parainfluenza 3 (PCR) Not detected, Parainfluenza 4 (PCR) Not detected, RSV (PCR) Not detected, Entero/Rhino (PCR) Detected A I & O for Last 24 hours: Intake & Output 03/11/25 03/12/25 03/13/25 03/14/25 23:59 23:59 23:59 23:59 Intake Total 460 / 750 710 / 960 740 / 740 Output Total 450 / 450 950 / 950 Balance 10 / 300 -240 / 10 740 / 740 Weight 160 lb 159 lb 12.657 oz 151 lb 14.4 oz Constitutional Constitutional: no acute distress and cooperative *Routine HEENT Exam Eye: Present PERRL *Routine Respiratory Exam Respiratory: Present CTA bilaterally; Absent accessory muscle use, wheezes or crackles *Routine Cardiovascular Exam Cardiovascular: Present RRR, Normal S1 and Normal S2; Absent murmur, gallop or rubs *Routine Abdominal Exam Abdominal: Present soft; Absent tenderness *Routine Extremities Exam Extremities: Present pulses intact; Absent cyanosis or edema *Routine Skin Exam Skin: Present intact; Absent erythema or wounds *Routine Neurological Exam Neurological: Present alert and oriented X3 Routine Psychiatric Exam Psychiatric: Present cooperative Progress Note: A&P Assessment and plan (1) STEMI (ST elevation myocardial infarction): Status: Acute (2) Tobacco use disorder: Status: Acute (3) COPD (chronic obstructive pulmonary disease): Status: Chronic (4) GERD (gastroesophageal reflux disease): Status: Chronic (5) HFrEF (heart failure with reduced ejection fraction): Status: Acute (6) Tobacco abuse: Status: Acute (7) Allergic rhinitis: Status: Acute Assessment and Plan Assessment and Plan for All Diagnoses:: Late Presentation AW-STEMI - new dx this admission with angina, anterior lead q-waves, and elevated Trop - LHC - Severe dz in LAD/1st diagonal stented successfully. LCX 70% left to med management - ECHO - EF 20% septal, anteroseptal, inferoseptal LV sol are akinetic - Plan: 48 obs post [place]. DAPT, BB, Statin, GDMT for HF. LifeVest. 03/14: Stable but BP low with MAP of 67, will continue to monitor. LifeVest approved/pending. HFrEF, Ischemic Cardiomyopathy - new dx this admission with EF 20% and septal, anteroseptal, inferoseptal LV wall akinesis - secondary to late presentation [place] - reviewed with patient in detail, late presentation portends poor myocardial recovery - No evidence of vol overload at this time - Add Toprol XL, Entresto, Jardiance. Hold on Aldactone for now due to low BP. Hopefully add later - Pt agreeable to Lifevest for now. Will repeat limited ECHO 1 month to assess LV recovery. Consider ICD at that time. 03/14: stable/euvolemic. MAP 67, unable to advance GDMT. Monitor closely. Transaminitis - AST only - secondary to STEMI, ALT normal, ok to give statin 03/14: Resolving Tob Use, presumed COPD - recommend complete cessation, pt agreeable, currently wearing transdermal Nicotine - continue home inhalers Hyperlipidemia - LDL 74, goal is <55 - hold statin for now due to transaminitis Leukocytosis/Rhinovirus - WBC 17k, Temp 100.4, Post for rhinovirus - plans per hospitalist CV stable but BP very low and now with rhinovirus and fever. Unable to advance GDMT for HF. Riya baker today. Recommend observation until at least tomorrow. He will need assistance once DCd home.
--- NOTE | 2025-03-14 15:17 | EXP.DC.SUM ---
General Admission date:: 03/12/25 HPI HPI HPI: 54-year-old male who smokes approximately 2 packs a day, presented to the ER with onset of chest pain. Pain began last night. Was sharp in character accompanied by nausea and vomiting. Had similar episode previously that he thought was GERD. Has been admitted for it before and treated as though it was GERD. On this presentation, pain somewhat better but not relieved with nitroglycerin. Took nitroglycerin at home prior to coming in. Did not have aspirin at home to take. On arrival to the ED, EKG concerning for anteroseptal SC with prolonged Q-wave in V1 through [address] changes in V3 4 and 5. Troponin elevated at 1.1. Cardiology was consulted, patient taken urgently to the [facility]. Received 3 stents to the LAD and circumflex. Will admit to monitor for at least 48 hours post [place]. At risk for arrhythmias. On evaluation, denies any further chest pain after heart cath. No nausea, vomiting, diarrhea. Alert and oriented x 4. Family at bedside helps supplement history. Denies fever or shortness of breath. Exam Data for Last 24 hours Vital signs and Labs for Last 24 Hours: Temp Pulse Resp BP Pulse Ox O2 Del Method 97.9 F 70 20 80/55 L 96 Room Air 03/14/25 08:00 03/14/25 14:30 03/14/25 12:00 03/14/25 14:30 03/14/25 12:00 03/14/25 14:34 Laboratory Results - last 24 hr 03/13/25 18:05: WBC 15.6 H, RBC 4.98, Hgb 15.1, Hct 45.0, MCV 90.4, MCH 30.3, MCHC 33.6, RDW 13.6, Plt Count 240, MPV 10.0, Neut % (Auto) 66.5, Lymph % (Auto) 24.2, [place] % (Auto) 7.9, Eos % (Auto) 0.2, Baso % (Auto) 0.4, Neut # (Auto) 10.4 H, Lymph # (Auto) 3.8, [place] # (Auto) 1.2 H, Eos # (Auto) 0.0, Baso # (Auto) 0.1, Sodium 134 L, Potassium 4.7, Chloride 102, Carbon Dioxide 25, Anion Gap 11.7, BUN 10, Creatinine 1.00, Estimated Creat Clear 85, Estimated GFR 77, Est GFR ( Amer) 94, Glucose 100 D, Calcium 8.7, Total Bilirubin 0.6, AST 219 H D, ALT 50, Alkaline Phosphatase 59, Total Protein 6.2 L, Albumin 3.6, Globulin 2.6, Albumin/Globulin Ratio 1.4 03/14/25 05:31: WBC 14.1 H, RBC 4.83, Hgb 14.5, Hct 43.5, MCV 90.1, MCH 30.0, MCHC 33.3, RDW 13.5, Plt Count 236, MPV 10.5 H, Neut % (Auto) 64.1, Lymph % (Auto) 25.0, [place] % (Auto) 9.0, Eos % (Auto) 0.6, Baso % (Auto) 0.4, Neut # (Auto) 9.0 H, Lymph # (Auto) 3.5, [place] # (Auto) 1.3 H, Eos # (Auto) 0.1, Baso # (Auto) 0.1, Sodium 133 L, Potassium 4.5, Chloride 103, Carbon Dioxide 24, Anion Gap 10.5, BUN 14 D, Creatinine 1.10, Estimated Creat Clear 73, Estimated GFR 69, Est GFR ( Amer) 84, Glucose 83, Calcium 8.5, Total Bilirubin 0.5, AST 130 H D, ALT 37 D, Alkaline Phosphatase 61, Total Protein 5.7 L, Albumin 3.2 L D, Globulin 2.5, Albumin/Globulin Ratio 1.3 03/14/25 05:35: Chlamy pneumoniae PCR Not detected, Adenovirus (PCR) Not detected, B. pertussis DNA (PCR) Not detected, Coronavirus OC43 (PCR) Not detected, Coronavirus HKU1 (PCR) Not detected, Coronavirus 229E (PCR) Not detected, SARS-CoV-2 (PCR) Not detected, Coronavirus NL63 (PCR) Not detected, Human Metapneumovir PCR Not detected, Influenza A (H1) PCR Not detected, Influ A (H1N1/09) PCR Not detected, Influenza A (H3) PCR Not detected, Influenza Type A (PCR) Not detected, Influenza Type B (PCR) Not detected, M. pneumoniae (PCR) Not detected, Parainfluenza 1 (PCR) Not detected, Parainfluenza 2 (PCR) Not detected, Parainfluenza 3 (PCR) Not detected, Parainfluenza 4 (PCR) Not detected, RSV (PCR) Not detected, Entero/Rhino (PCR) Detected A I & O for Last 24 hours: Intake & Output 03/11/25 03/12/25 03/13/25 03/14/25 23:59 23:59 23:59 23:59 Intake Total 460 / 750 710 / 960 740 / 740 Output Total 450 / 450 950 / 950 Balance 10 / 300 -240 / 10 740 / 740 Weight 72.575 kg 72.48 kg 68.901 kg Microbiology Reports for the Last 24 Hours: Microbiology 03/13/25 14:11 Blood Blood Culture - Preliminary NO GROWTH AFTER 24 HOURS 03/13/25 14:11 Blood Blood Culture - Preliminary NO GROWTH AFTER 24 HOURS Results Data Completed and Pending Labs on day of discharge: Labs from last 24 hours 03/14/25 03/14/25 03/13/25 05:35 05:31 18:05 WBC 14.1 H 15.6 H RBC 4.83 4.98 Hgb 14.5 15.1 Hct 43.5 45.0 MCV 90.1 90.4 MCH 30.0 30.3 MCHC 33.3 33.6 RDW 13.5 13.6 Plt Count 236 240 MPV 10.5 H 10.0 Neut % (Auto) 64.1 66.5 Lymph % (Auto) 25.0 24.2 [place] % (Auto) 9.0 7.9 Eos % (Auto) 0.6 0.2 Baso % (Auto) 0.4 0.4 Neut # (Auto) 9.0 H 10.4 H Lymph # (Auto) 3.5 3.8 [place] # (Auto) 1.3 H 1.2 H Eos # (Auto) 0.1 0.0 Baso # (Auto) 0.1 0.1 Sodium 133 L 134 L Potassium 4.5 4.7 Chloride 103 102 Carbon Dioxide 24 25 Anion Gap 10.5 11.7 BUN 14 D 10 Creatinine 1.10 1.00 Estimated Creat Clear 73 85 Estimated GFR 69 77 Est GFR ( Amer) 84 94 Glucose 83 100 D Calcium 8.5 8.7 Total Bilirubin 0.5 0.6 AST 130 H D 219 H D ALT 37 D 50 Alkaline Phosphatase 61 59 Total Protein 5.7 L 6.2 L Albumin 3.2 L D 3.6 Globulin 2.5 2.6 Albumin/Globulin Ratio 1.3 1.4 Chlamy pneumoniae PCR Not detected Adenovirus (PCR) Not detected B. pertussis DNA (PCR) Not detected Coronavirus OC43 (PCR) Not detected Coronavirus HKU1 (PCR) Not detected Coronavirus 229E (PCR) Not detected SARS-CoV-2 (PCR) Not detected Coronavirus NL63 (PCR) Not detected Human Metapneumovir PCR Not detected Influenza A (H1) PCR Not detected Influ A (H1N1/09) PCR Not detected Influenza A (H3) PCR Not detected Influenza Type A (PCR) Not detected Influenza Type B (PCR) Not detected M. pneumoniae (PCR) Not detected Parainfluenza 1 (PCR) Not detected Parainfluenza 2 (PCR) Not detected Parainfluenza 3 (PCR) Not detected Parainfluenza 4 (PCR) Not detected RSV (PCR) Not detected Entero/Rhino (PCR) Detected A Preliminary micro results at discharge 03/13/25 14:11 Blood Culture - Preliminary Blood NO GROWTH AFTER 24 HOURS 03/13/25 14:11 Blood Culture - Preliminary Blood NO GROWTH AFTER 24 HOURS DS: Diagnosis Discharge Diagnosis (1) STEMI (ST elevation myocardial infarction): Status: Acute Code(s): I21.3 - ST elevation (STEMI) myocardial infarction of unspecified site (2) Tobacco use disorder: Status: Acute Code(s): F17.200 - Nicotine dependence, unspecified, uncomplicated (3) COPD (chronic obstructive pulmonary disease): Status: Chronic Code(s): J44.9 - Chronic obstructive pulmonary disease, unspecified (4) GERD (gastroesophageal reflux disease): Status: Chronic Code(s): K21.9 - Gastro-esophageal reflux disease without esophagitis (5) HFrEF (heart failure with reduced ejection fraction): Status: Acute Code(s): I50.20 - Unspecified systolic (congestive) heart failure (6) Tobacco abuse: Status: Acute Code(s): Z72.0 - Tobacco use (7) Allergic rhinitis: Status: Acute Code(s): J30.9 - Allergic rhinitis, unspecified Qualifiers: Allergic rhinitis seasonality: unspecified Allergic rhinitis trigger: unspecified Qualified Code(s): J30.9 - Allergic rhinitis, unspecified Meds Home Medications and Allergies Home Medications ?Medication ?Instructions ?Recorded ?Confirmed ?Type albuterol sulfate 90 mcg/actuation 2 puff inhalation Q4HP PRN 03/12/25 03/12/25 History aerosol inhaler (Ventolin HFA) Shortness Of Breath budesonide-formoterol HFA 160 2 puff inhalation BID 03/12/25 03/12/25 History mcg-4.5 mcg/actuation aerosol inhaler (Symbicort) gabapentin 300 mg capsule 300 mg PO DAILY 03/12/25 03/12/25 History omeprazole 20 mg capsule,delayed 20 mg PO DAILY 03/12/25 03/12/25 History release paroxetine HCl 10 mg tablet 10 mg PO DAILY 03/12/25 03/12/25 History New Prescriptions to Start Prescriptions: Allergies Allergy/AdvReac Type Severity Reaction Status Date / Time No Known Allergies Allergy Verified 03/12/25 14:54 Discharge Plan Disposition Condition: Fair Follow up Plan Follow up with: Provider,Referral, MD [Primary Care Provider, Medical] - See instructions Prescriptions/Medication Reconciliation: No Action paroxetine HCl 10 mg tablet 10 mg PO DAILY Patient Comments: TAKE ONE TABLET BY MOUTH EVERY DAY FOR depression omeprazole 20 mg capsule,delayed release(DR/EC) 20 mg PO DAILY albuterol sulfate [Ventolin HFA] 90 mcg/actuation HFA aerosol inhaler 2 puff INHALATION Q4HP PRN (Reason: Shortness Of Breath) budesonide-formoterol [Symbicort] 160-4.5 mcg/actuation HFA aerosol inhaler 2 puff INHALATION BID Patient Comments: inhale 2 puffs by inhalation route 2 times per day in the morning and evening and rinse mouth after use gabapentin 300 mg capsule 300 mg PO DAILY Patient Comments: TAKE ONE CAPSULE BY MOUTH NIGHTLY AT BEDTIME FOR back pain Patient Discharge Instructions Patient Instructions: DI for Heart Attack, DI for Cardiac Catheterization, DI for Surgical Site Infection, Stop Light COPD, Stop Light Heart Failure Print Language: Palestinian Providers Primary Care Provider: Provider,Referral Admit Provider: Champ Brasher Attending Provider: Champ Brasher
[2025-03-14] MEDS: ATORVASTATIN 40MG TABLET 80 MG PO (20:14)
[2025-03-14] MEDS: PANTOPRAZOLE 40MG TABLET 40 MG PO (20:14)
--- NOTE | 2025-03-14 21:38 | ECG_ITS ---
APPROVED REPORT Exam: Resting ECG HR:76 bpm ECG Measurements Heart Rate [address] 142 P 65 QRSd 89 QRS -83 QT 423 T 200 QTc 454 Conclusion SINUS RHYTHM LEFT ANTERIOR FASCICULAR BLOCK [QRS AXIS <= -45, QR IN I, RS IN II] ANTEROSEPTAL MYOCARDIAL INFARCTION , PROBABLY RECENT [40+ ms Q WAVE IN V1-V4] ACUTE ME UNCONFIRMED REPORT Electronically signed by : Cain Monroy MD 03/16/2025 07:18:10
--- NOTE | 2025-03-14 22:29 | P.PN_ITS ---
Subjective *Date: 03/14/25 *Time: 22:29 Interval history: Patient doing well today, no complaints. Pressure softer after starting Entresto, discontinued today. Patient to monitor. Consider discharge tomorrow with LifeVest if BP improves. Exam Data for Last 24 hours Vital signs and Labs for Last 24 Hours: Temp Pulse Resp BP Pulse Ox O2 Del Method 98.2 F 81 16 99/59 L 96 Room Air 03/14/25 20:00 03/14/25 20:00 03/14/25 20:00 03/14/25 20:00 03/14/25 20:00 03/14/25 21:00 Laboratory Results - last 24 hr 03/14/25 05:31: WBC 14.1 H, RBC 4.83, Hgb 14.5, Hct 43.5, MCV 90.1, MCH 30.0, MCHC 33.3, RDW 13.5, Plt Count 236, MPV 10.5 H, Neut % (Auto) 64.1, Lymph % (Auto) 25.0, [place] % (Auto) 9.0, Eos % (Auto) 0.6, Baso % (Auto) 0.4, Neut # (Auto) 9.0 H, Lymph # (Auto) 3.5, [place] # (Auto) 1.3 H, Eos # (Auto) 0.1, Baso # (Auto) 0.1, Sodium 133 L, Potassium 4.5, Chloride 103, Carbon Dioxide 24, Anion Gap 10.5, BUN 14 D, Creatinine 1.10, Estimated Creat Clear 73, Estimated GFR 69, Est GFR ( Amer) 84, Glucose 83, Calcium 8.5, Total Bilirubin 0.5, AST 130 H D, ALT 37 D, Alkaline Phosphatase 61, Total Protein 5.7 L, Albumin 3.2 L D, Globulin 2.5, Albumin/Globulin Ratio 1.3 03/14/25 05:35: Chlamy pneumoniae PCR Not detected, Adenovirus (PCR) Not detecte d, B. pertussis DNA (PCR) Not detected, Coronavirus OC43 (PCR) Not detected, Coronavirus HKU1 (PCR) Not detected, Coronavirus 229E (PCR) Not detected, SARS-CoV-2 (PCR) Not detected, Coronavirus NL63 (PCR) Not detected, Human Metapneumovir PCR Not detected, Influenza A (H1) PCR Not detected, Influ A (H1N1/09) PCR Not detected, Influenza A (H3) PCR Not detected, Influenza Type A (PCR) Not detected, Influenza Type B (PCR) Not detected, M. pneumoniae (PCR) Not detected, Parainfluenza 1 (PCR) Not detected, Parainfluenza 2 (PCR) Not detected, Parainfluenza 3 (PCR) Not detected, Parainfluenza 4 (PCR) Not detected, RSV (PCR) Not detected, Entero/Rhino (PCR) Detected A Temp Pulse Resp BP Pulse Ox O2 Del Method 98.5 F 105 H 14 118/71 98 Room Air 03/13/25 10:03/13/25 10:00 03/13/25 10:03/13/25 10:00 03/13/25 10:03/13/25 10:00 Laboratory Results - last 24 hr 03/12/25 13:29: Activated Clotting Time 338 H* 03/12/25 : WBC 13.4 H, RBC 4.50 L, Hgb 13.7 L, Hct 40.4 L, MCV 89.8, MCH 30.4, MCHC 33.9, RDW 13.1, Plt Count 255, MPV 9.8, Neut % (Auto) 80.7 H, Lymph % (Auto) 12.7, [place] % (Auto) 5.1, Eos % (Auto) 0.2, Baso % (Auto) 0.3, Neut # (Auto) 10.8 H, Lymph # (Auto) 1.7, [place] # (Auto) 0.7, Eos # (Auto) 0.0, Baso # (Auto) 0.0, PT 11.4, INR 1.03, D-Dimer 0.58 H, Sodium 136, Potassium 4.0, Chloride 103, Carbon Dioxide 22, Anion Gap 15.0, BUN 11, Creatinine 1.00, Estimated Creat Clear 85, Estimated GFR 77, Est GFR ( Amer) 94, Glucose 145 H, Hemoglobin A1c 6.0, Calcium 8.6, Magnesium 1.9, Total Bilirubin 0.3, AST 75 H, ALT 28, Alkaline Phosphatase 69, Troponin I 1.35 H, NT-Pro-B Natriuret Pep 380 H, Total Protein 5.9 L, Albumin 3.6, Globulin 2.3, Albumin/Globulin Ratio 1.6, Lipase 57, TSH 2.65, HCV Ab LIZBETH w/Rflx PCR Qn Negative, HIV Ag/Ab Combo Qual Negative 03/13/25 05:45: WBC 17.6 H D, RBC 4.80, Hgb 14.6, Hct 43.2, MCV 90.0, MCH 30.4, MCHC 33.8, RDW 13.4, Plt Count 245, MPV 10.0, Neut % (Auto) 77.9, Lymph % (Auto) 12.1, [place] % (Auto) 8.5, Eos % (Auto) 0.0 L, Baso % (Auto) 0.4, Neut # (Auto) 13.7 H, Lymph # (Auto) 2.1, [place] # (Auto) 1.5 H, Eos # (Auto) 0.0, Baso # (Auto) 0.1, Sodium 136, Potassium 4.4, Chloride 103, Carbon Dioxide 23, Anion Gap 14.4, BUN 10, Creatinine 0.90, Estimated Creat Clear 94, Estimated GFR 87, Est GFR ( Amer) 106, Glucose 138 H, Calcium 8.6, Magnesium 2.2 D, Total Bilirubin 0.5, AST 429 H* D, ALT 61 D, Alkaline Phosphatase 66, Total Protein 6.2 L, Albumin 3.8, Globulin 2.4, Albumin/Globulin Ratio 1.6, Triglycerides 68, Cholesterol 158, LDL Cholesterol Direct 74.09 L, VLDL Cholesterol 14, HDL Cholesterol 45, Cholesterol/HDL Ratio 3.5 I & O for Last 24 hours: Intake & Output 03/11/25 03/12/25 03/13/25 03/14/25 23:59 23:59 23:59 23:59 Intake Total 460 / 750 710 / 960 1040 / 1040 Output Total 450 / 450 950 / 950 Balance 10 / 300 -240 / 10 1040 / 1040 Weight 72.575 kg 72.48 kg 68.901 kg Intake & Output 03/10/25 03/11/25 03/12/25 03/13/25 23:59 23:59 23:59 23:59 Intake Total 460 / 750 470 / 470 Output Total 450 / 450 100 / 100 Balance 10 / 300 370 / 370 Weight 160 lb 159 lb 12.657 oz Microbiology Reports for the Last 24 Hours: Microbiology 03/13/25 14:11 Blood Blood Culture - Preliminary NO GROWTH AFTER 24 HOURS 03/13/25 14:11 Blood Blood Culture - Preliminary NO GROWTH AFTER 24 HOURS Constitutional Constitutional: no acute distress and cooperative *Routine HEENT Exam Eye: Present PERRL *Routine Respiratory Exam Respiratory: Present CTA bilaterally; Absent accessory muscle use, wheezes or crackles *Routine Cardiovascular Exam Cardiovascular: Present RRR, Normal S1 and Normal S2; Absent murmur, gallop or rubs *Routine Abdominal Exam Abdominal: Present soft; Absent tenderness *Routine Extremities Exam Extremities: Present pulses intact; Absent cyanosis or edema *Routine Skin Exam Skin: Present intact; Absent erythema or wounds *Routine Neurological Exam Neurological: Present alert and oriented X3 Routine Psychiatric Exam Psychiatric: Present cooperative Assessment and Plan *Assessment and plan (1) STEMI (ST elevation myocardial infarction): Status: Acute Category: Medical Code(s): I21.3 - ST elevation (STEMI) myocardial infarction of unspecified site (2) Tobacco use disorder: Status: Acute Category: Medical Code(s): F17.200 - Nicotine dependence, unspecified, uncomplicated (3) COPD (chronic obstructive pulmonary disease): Status: Chronic Category: Medical Code(s): J44.9 - Chronic obstructive pulmonary disease, unspecified (4) GERD (gastroesophageal reflux disease): Status: Chronic Category: Medical Code(s): K21.9 - Gastro-esophageal reflux disease without esophagitis Plan Dash Loera is a 54-year-old male who presented with chest pain. Found to have STEMI. Taken to the [facility] Est[facility] from the ER. Received 3 stents to the proximal LAD, 1 stent to first diagonal artery. STEMI CAD - Initially concern for NSTEMI, called STEMI after severity of blockage and changes noted in heart function and EKG. Received 3 stents to a subtotal proximal LAD occlusion. - Cardiology consulted to assist with care. Monitor on telemetry for 48 hours. -Continue on aspirin 81 mg daily and prasugrel 10 mg daily - Initial troponin elevated at 1.1. - ECHO shows LVEF 20%. LifeVest ordered, cardiology started GDMT including metoprolol succinate, Entresto, Jardiance. Will hold off on Aldactone for now. ? However, BP quite soft after starting Entresto. Discontinue today. Continue to monitor blood pressures, currently 99/59. - Repeat CBC, CMP, magnesium ordered for the morning. #GERD ? Patient continues to have burning chest pain, alleviated with GI cocktail. CTA chest unremarkable. ? Continue Protonix 40 mg daily. #Fever #Rhinovirus ? Patient had a fever of 100.4 Fahrenheit. Respiratory panel positive for rhinovirus. Tobacco use disorder: Offered patches, patient states he breaks out from patches. Recommended family to bring in gum or nicotine pouches. We will administer if they bring them in COPD: Continue DuoNebs every 4 hours as needed. No wheeze on exam GERD: Continue pantoprazole IV 40 mg nightly Full code Heparin subcu 3 times daily Cardiac diet
[2025-03-14] MEDS: SODIUM CHLORIDE 0.9% 500ML BAG 500 ML IV (23:41)
--- NOTE | 2025-03-14 23:52 | PC.NURSE ---
Addendum entered by Summer Dixon RN 03/15/25 05:18: Soft blood pressures ongoing, Arcelia Harrington APRN aware. Vital sign assessments documented accordingly. Addendum entered by Summer Dixon RN 03/15/25 00:54: Normal saline bolus finished at this time. Post-bolus infusion, the patient's blood pressure is 88/56 (MAP 66). Patient is resting with eyes closed, respirations are even and unlabored, and no apparent distress is noted. Addendum entered by Summer Dixon RN 03/14/25 23:57: Patient continues to rest in bed without any complaints of further chest pain + nausea at this time. One time normal saline bolus of 500 mL (ordered by Arcelia Harrington APRN) continues to infuse due to hypotensive blood pressures. Additional vital sign assessments performed (see documentation). Addendum entered by Summer Dixon RN 03/14/25 23:54: EKG completed. Arcelia Harrington APRN was notified about the need for reviewing the unofficial report at this time. Original Note: Respiratory therapists are at bedside performing second EKG this shift, ordered per Arcelia Harrington APRN.
--- NOTE | 2025-03-14 23:53 | ECG_ITS ---
APPROVED REPORT Exam: Resting ECG HR:71 bpm ECG Measurements Heart Rate 71 AXES VT 150 P 70 QRSd 86 QRS -83 QT 395 T 207 QTc 417 Conclusion SINUS RHYTHM LEFT ANTERIOR FASCICULAR BLOCK [QRS AXIS <= -45, QR IN I, RS IN II] ANTEROSEPTAL MYOCARDIAL INFARCTION , PROBABLY RECENT [40+ ms Q WAVE IN V1-V4] ACUTE WI UNCONFIRMED REPORT Electronically signed by : Cain Monroy MD 03/16/2025 07:18:05
[2025-03-15] VITALS (8 sets, daily range): BP systolic 76–96; BP diastolic 44–60; PULSE 63–79; RESP 15–20; TEMP 36.7–36.9; O2SAT 96–99; BMI 25.0
--- NOTE | 2025-03-15 04:54 | PC.NURSE ---
Ice water passed, trash and linens emptied, bedside table cleaned.
--- NOTE | 2025-03-15 06:37 | CA_ITS ---
APPROVED REPORT EXAM: Limited 2D Echocardiogram with contrast Pad Machine Operator: CARLA Rankin, RVS Ht: 5 ft 6 in Wt: 155lbs BSA: 1.79 BP: 99/55 mmHg Indications: CM, s/p STEMI Echo Enhancing Agent Indication: Rule out thrombus Agent(s) / Amount(s) Used: Definity 2 cc 2D Dimensions IVSd 1.08 cm LVEF (Visual) 9.10 % PWd 1.16 cm LVEF (Crouch's) 23.70 % LVDd 4.86 cm LV Volume 105.00 mL LVDs 4.56 cm LV Volume Index 58.917957 mL/m2 M: 34 - 74 EF AP4 28.50 % EF AP2 25.8 % EF BP 23.7 % GL Strain -10.7 % M-Mode Dimensions LA Diam 3.51 cm (1.9-4.0) LVDd 5.00 cm (3.5-5.7) LVDs 4.49 cm (3.5-5.7) EF (Teich) 22.20% EPSs 1.71 cm FS 10.20% EDV (Teich) 118.20 mL ESV (Teich) 92.00 mL Other Information Study Quality: Fair Conclusion This is a limited TTE to evaluate for LV systolic function and rule out pericardial effusion. Limited windows are obtained. Ultrasound enhancing agent is administered. The left ventricle is normal in size. There is normal LV wall thickness. There is severe global hypokinesis present. The septal, inferoseptal, anteroseptal, and apical LV sol are akinetic. LVEF is 20%. There is no evidence of LV thrombus. No evidence of pericardial effusion. Electronically signed by : Fawn Haas MD 03/16/2025 15:39:20
[2025-03-15] MEDS: ONDANSETRON 4MG/2ML VIAL 4 MG IV (08:28)
[2025-03-15] MEDS: PRASUGREL 10MG TAB 10 MG PO (08:28)
[2025-03-15] MEDS: ASPIRIN EC 81MG TABLET 81 MG PO (08:29)
[2025-03-15] MEDS: PARoxetine 10MG TABLET 10 MG PO (08:29)
[2025-03-15 08:33] LABS: Hematocrit 41.1 % (42.0-52.0); Hemoglobin 13.8 g/dL (14.1-18.0); Immature Granulocytes % 1.1 %; Mean Corpuscular HGB Conc 33.6 g/dL (31.8-35.4); Mean Corpuscular Hemoglobin 30.5 pg (27.0-31.2); Mean Corpuscular Volume 90.7 fl (80-94); Nucleated Red Blood Cells % 0 %; Platelet Count 206 K/mm3 (142-424); Red Blood Count 4.53 M/mm3 (4.60-6.20); Red Cell Distribution Width-SD 44.7 fL; White Blood Count 10.3 K/mm3 (4.8-10.8)
[2025-03-15 08:50] LABS: Alanine Aminotransferase 27 U/L (12-78); Albumin Level 2.9 g/dl (3.5-5.0); Albumin/Globulin Ratio 1.3 (1.1-1.8); Alkaline Phosphatase 53 U/L (38-126); Anion Gap 9.1 mEq/L (5-15); Aspartate Amino Transferase 54 U/L (17-59); Bilirubin,Total 0.3 mg/dl (0.2-1.3); Blood Urea Nitrogen 18 mg/dl (9-20); Calcium 8.2 mg/dl (8.4-10.2); Carbon Dioxide 25 mmol/L (22.0-30.0); Chloride 106 mmol/L (98-107); Creatinine Clearance Estimated 82 mL/min (50-200); Creatinine,Serum 1.00 mg/dl (0.66-1.25); Estimated Glomerular Filt Rate 77 ml/min (>60); GFR (African American) 94 ML/MIN (>60); Globulin 2.3 g/dL (1.3-3.2); Glucose 91 mg/dl (74-100); Magnesium 2.2 mg/dl (1.6-2.3); Potassium 4.1 mmoL/L (3.5-5.1); Sodium 136 mmol/L (136-145); Total Protein,Serum 5.2 g/dl (6.3-8.2)
--- NOTE | 2025-03-15 13:30 | EXP.DC.SUM ---
General Admission date:: 03/12/25 HPI HPI HPI: 54-year-old male who smokes approximately 2 packs a day, presented to the ER with onset of chest pain. Pain began last night. Was sharp in character accompanied by nausea and vomiting. Had similar episode previously that he thought was GERD. Has been admitted for it before and treated as though it was GERD. On this presentation, pain somewhat better but not relieved with nitroglycerin. Took nitroglycerin at home prior to coming in. Did not have aspirin at home to take. On arrival to the ED, EKG concerning for anteroseptal LA with prolonged Q-wave in V1 through [address] changes in V3 4 and 5. Troponin elevated at 1.1. Cardiology was consulted, patient taken urgently to the [facility]. Received 3 stents to the LAD and circumflex. Will admit to monitor for at least 48 hours post LA. At risk for arrhythmias. On evaluation, denies any further chest pain after heart cath. No nausea, vomiting, diarrhea. Alert and oriented x 4. Family at bedside helps supplement history. Denies fever or shortness of breath. Hospital Course Hospital Course Hospital Course: Dash Loera is a 54-year-old male who presented with chest pain. Found to have STEMI. Taken to the [facility] from the ER. Received 3 stents to the proximal LAD, 1 stent to first diagonal artery. #STEMI #CAD - Initially concern for NSTEMI, called STEMI after severity of blockage and changes noted in heart function and EKG. Received 3 stents to a subtotal proximal LAD occlusion. - Cardiology consulted, aspirin 81 mg, prasugrel 10 mg, atorvastatin 80 mg, metoprolol succinate 25 mg. ? Hemoglobin A1c 6.0%, LDL 74, TSH normal. - ECHO shows LVEF 20%. LifeVest ordered, cardiology started GDMT including metoprolol succinate, Entresto, Jardiance. However, blood pressures became hypotensive therefore Entresto and Jardiance were discontinued. BMP be reconsidered on an outpatient basis. BP currently 99/59. ? Follow-up with cardiology within 1 week. #GERD ? Continue Protonix 40 mg daily. #Fever #Rhinovirus ? Patient had a fever of 100.4 Fahrenheit. Respiratory panel positive for rhinovirus. No respiratory symptoms. #Tobacco use disorder ? Offered patches, patient states he breaks out from patches. Recommend nicotine gum. #COPD ? Continue home Symbicort, albuterol as needed. Total time spent on discharge: 32 minutes on chart review, counseling, documentation, and direct care with patient. Exam Data for Last 24 hours Vital signs and Labs for Last 24 Hours: Temp Pulse Resp BP Pulse Ox O2 Del Method 98.5 F 75 17 91/56 L 98 Room Air 03/15/25 12:00 03/15/25 12:00 03/15/25 12:00 03/15/25 12:00 03/15/25 12:00 03/15/25 12:00 Laboratory Results - last 24 hr 03/15/25 08:26: WBC 10.3 D, RBC 4.53 L, Hgb 13.8 L, Hct 41.1 L, MCV 90.7, MCH 30.5, MCHC 33.6, RDW 13.2, Plt Count 206, MPV 10.1, Neut % (Auto) 62.9, Lymph % (Auto) 27.0, [place] % (Auto) 7.2, Eos % (Auto) 1.5, Baso % (Auto) 0.3, Neut # (Auto) 6.5, Lymph # (Auto) 2.8, [place] # (Auto) 0.7, Eos # (Auto) 0.2, Baso # (Auto) 0.0, Sodium 136, Potassium 4.1, Chloride 106, Carbon Dioxide 25, Anion Gap 9.1, BUN 18 D, Creatinine 1.00, Estimated Creat Clear 82, Estimated GFR 77, Est GFR ( Amer) 94, Glucose 91, Calcium 8.2 L, Magnesium 2.2, Total Bilirubin 0.3, AST 54 D, ALT 27 D, Alkaline Phosphatase 53, Total Protein 5.2 L, Albumin 2.9 L, Globulin 2.3, Albumin/Globulin Ratio 1.3 I & O for Last 24 hours: Intake & Output 03/12/25 03/13/25 03/14/25 03/15/25 23:59 23:59 23:59 23:59 Intake Total 460 / 750 710 / 960 1040 / 1220 420 / 420 Output Total 450 / 450 950 / 950 0 / 0 Balance 10 / 300 -240 / 10 1040 / 1220 420 / 420 Weight 72.575 kg 72.48 kg 68.901 kg 70.534 kg Microbiology Reports for the Last 24 Hours: Microbiology 03/13/25 14:11 Blood Blood Culture - Preliminary NO GROWTH AFTER 24 HOURS 03/13/25 14:11 Blood Blood Culture - Preliminary NO GROWTH AFTER 24 HOURS Constitutional Constitutional: no acute distress and cooperative *Routine HEENT Exam Eye: Present PERRL *Routine Respiratory Exam Respiratory: Present CTA bilaterally; Absent accessory muscle use, wheezes or crackles *Routine Cardiovascular Exam Cardiovascular: Present RRR, Normal S1 and Normal S2; Absent murmur, gallop or rubs *Routine Abdominal Exam Abdominal: Present soft; Absent tenderness *Routine Extremities Exam Extremities: Present pulses intact; Absent cyanosis or edema *Routine Skin Exam Skin: Present intact; Absent erythema or wounds *Routine Neurological Exam Neurological: Present alert and oriented X3 Routine Psychiatric Exam Psychiatric: Present cooperative Results Data Completed and Pending Labs on day of discharge: Labs from last 24 hours 03/15/25 08:26 WBC 10.3 D RBC 4.53 L Hgb 13.8 L Hct 41.1 L MCV 90.7 MCH 30.5 MCHC 33.6 RDW 13.2 Plt Count 206 MPV 10.1 Neut % (Auto) 62.9 Lymph % (Auto) 27.0 [place] % (Auto) 7.2 Eos % (Auto) 1.5 Baso % (Auto) 0.3 Neut # (Auto) 6.5 Lymph # (Auto) 2.8 [place] # (Auto) 0.7 Eos # (Auto) 0.2 Baso # (Auto) 0.0 Sodium 136 Potassium 4.1 Chloride 106 Carbon Dioxide 25 Anion Gap 9.1 BUN 18 D Creatinine 1.00 Estimated Creat Clear 82 Estimated GFR 77 Est GFR ( Amer) 94 Glucose 91 Calcium 8.2 L Magnesium 2.2 Total Bilirubin 0.3 AST 54 D ALT 27 D Alkaline Phosphatase 53 Total Protein 5.2 L Albumin 2.9 L Globulin 2.3 Albumin/Globulin Ratio 1.3 Preliminary micro results at discharge 03/13/25 14:11 Blood Culture - Preliminary Blood NO GROWTH AFTER 24 HOURS 03/13/25 14:11 Blood Culture - Preliminary Blood NO GROWTH AFTER 24 HOURS DS: Diagnosis Discharge Diagnosis (1) STEMI (ST elevation myocardial infarction): Status: Acute Code(s): I21.3 - ST elevation (STEMI) myocardial infarction of unspecified site (2) Tobacco use disorder: Status: Acute Code(s): F17.200 - Nicotine dependence, unspecified, uncomplicated (3) COPD (chronic obstructive pulmonary disease): Status: Chronic Code(s): J44.9 - Chronic obstructive pulmonary disease, unspecified (4) GERD (gastroesophageal reflux disease): Status: Chronic Code(s): K21.9 - Gastro-esophageal reflux disease without esophagitis Meds Home Medications and Allergies Home Medications ?Medication ?Instructions ?Recorded ?Confirmed ?Type albuterol sulfate 90 mcg/actuation 2 puff inhalation Q4HP PRN 03/12/25 03/19/25 History aerosol inhaler (Ventolin HFA) Shortness Of Breath budesonide-formoterol HFA 160 2 puff inhalation BID 03/12/25 03/19/25 History mcg-4.5 mcg/actuation aerosol inhaler (Symbicort) gabapentin 300 mg capsule 300 mg PO DAILY 03/12/25 03/19/25 History Held on 03/15/25. Instructions: Resume on 03/29/25. You did not require this medication during admission. Please consider discontinuing. omeprazole 20 mg capsule,delayed 20 mg PO DAILY 03/12/25 03/19/25 History release paroxetine HCl 10 mg tablet 10 mg PO DAILY 03/12/25 03/19/25 History aspirin 81 mg tablet,delayed 81 mg PO DAILY 30 days #30 tabs 03/15/25 03/19/25 Rx release atorvastatin 40 mg tablet 80 mg (2 x 40 mg) PO HS 30 days 03/15/25 03/19/25 Rx #60 tabs metoprolol succinate 25 mg 25 mg PO DAILY 30 days #30 tabs 03/15/25 03/19/25 Rx tablet,extended release 24 hr prasugrel HCl 10 mg tablet 10 mg PO DAILY 30 days #30 tabs 03/15/25 03/19/25 Rx nicotine 14 mg/24 hr daily 1 patch transdermal Q24H #28 ea 03/19/25 03/19/25 Rx transdermal patch varenicline tartrate 0.5 mg (11)-1 See Rx Instructions PO PER PKG DIR 03/19/25 03/19/25 Rx mg (42) tablets in a dose pack #53 tabs [facility] varenicline tartrate 1 mg tablet 1 mg PO BID #56 tabs 03/19/25 03/19/25 Rx (Chantix Continuing Month Box) New Prescriptions to Start Prescriptions: aspirin Ana Cristina,Rene atorvastatin Vikashnaseem,Rene metoprolol succinate Vikashnaseem,Rene prasugrel HCl Ana Cristina,Rene Allergies Allergy/AdvReac Type Severity Reaction Status Date / Time No Known Allergies Allergy Verified 03/19/25 13:51 Discharge Plan Disposition Patient Disposition: Home, Self-Care Condition: Fair Discharge Order Discharge Orders: Discharge Order (Routine); Ordered 03/15/25 Ordered By: Rene De La Paz Follow up Plan Follow up with: Ovidio Baig PA [Physician [employer], Cardiology] - 03/19/25 1:30 pm Cristina Wright [Referring, Medical] - 03/20/25 3:30 pm Prescriptions/Medication Reconciliation: New atorvastatin 40 mg Tablet 80 mg PO HS 30 Days Qty: 60 0RF aspirin 81 mg Tablet,Delayed Release (Dr/Ec) 81 mg PO DAILY 30 Days Qty: 30 0RF metoprolol succinate 25 mg Tablet Extended Release 24 Hr 25 mg PO DAILY 30 Days Qty: 30 0RF prasugrel HCl 10 mg Tablet 10 mg PO DAILY 30 Days Qty: 30 0RF Continued paroxetine HCl 10 mg tablet 10 mg PO DAILY Patient Comments: TAKE ONE TABLET BY MOUTH EVERY DAY FOR depression omeprazole 20 mg capsule,delayed release(DR/EC) 20 mg PO DAILY albuterol sulfate [Ventolin HFA] 90 mcg/actuation HFA aerosol inhaler 2 puff INHALATION Q4HP PRN (Reason: Shortness Of Breath) budesonide-formoterol [Symbicort] 160-4.5 mcg/actuation HFA aerosol inhaler 2 puff INHALATION BID Patient Comments: inhale 2 puffs by inhalation route 2 times per day in the morning and evening and rinse mouth after use Held gabapentin 300 mg capsule 300 mg PO DAILY Hold Instructions: Resume on 03/29/25. You did not require this medication during admission. Please consider discontinuing. Patient Comments: TAKE ONE CAPSULE BY MOUTH NIGHTLY AT BEDTIME FOR back pain No Action nicotine 14 mg/24 hr patch 24 hour 1 patch transdermal Q24H Qty: 28 3RF varenicline tartrate [Chantix Continuing Month Box] 1 mg tablet 1 mg PO BID Qty: 56 4RF varenicline tartrate [Chantix Starting Month Box] 0.5 mg (11)- 1 mg (42) tablets,dose pack See Rx Instructions PO PER PKG DIR Qty: 53 0RF Rx Instructions: PO PER PKG DIR Problem Reconciliation Problems Reviewed?: Yes Patient Discharge Instructions Patient Instructions: DI for Heart Attack, DI for Cardiac Catheterization, DI for Surgical Site Infection, Stop Light COPD, Stop Light Heart Failure Print Language: Yemeni Providers Primary Care Provider: Provider,Referral Admit Provider: Champ Brasher Attending Provider: Champ Brasher
--- NOTE | 2025-03-15 13:31 | P.PN_ITS ---
Subjective Subjective Date: 03/15/25 Time: 09:30 Interval history: No events overnight. BP remains low. No further fever. Pt denies symptoms. Has been up ambulating independently. No orthopnea or edema. Exam Data for Last 24 hours Vital signs and Labs for Last 24 Hours: Temp Pulse Resp BP Pulse Ox O2 Del Method 98.5 F 75 17 91/56 L 98 Room Air 03/15/25 12:00 03/15/25 12:00 03/15/25 12:00 03/15/25 12:00 03/15/25 12:00 03/15/25 12:00 Laboratory Results - last 24 hr 03/15/25 08:26: WBC 10.3 D, RBC 4.53 L, Hgb 13.8 L, Hct 41.1 L, MCV 90.7, MCH 30.5, MCHC 33.6, RDW 13.2, Plt Count 206, MPV 10.1, Neut % (Auto) 62.9, Lymph % (Auto) 27.0, [place] % (Auto) 7.2, Eos % (Auto) 1.5, Baso % (Auto) 0.3, Neut # (Auto) 6.5, Lymph # (Auto) 2.8, [place] # (Auto) 0.7, Eos # (Auto) 0.2, Baso # (Auto) 0.0, Sodium 136, Potassium 4.1, Chloride 106, Carbon Dioxide 25, Anion Gap 9.1, BUN 18 D, Creatinine 1.00, Estimated Creat Clear 82, Estimated GFR 77, Est GFR ( Amer) 94, Glucose 91, Calcium 8.2 L, Magnesium 2.2, Total Bilirubin 0.3, AST 54 D, ALT 27 D, Alkaline Phosphatase 53, Total Protein 5.2 L, Albumin 2.9 L, Globulin 2.3, Albumin/Globulin Ratio 1.3 I & O for Last 24 hours: Intake & Output 03/12/25 03/13/25 03/14/25 03/15/25 23:59 23:59 23:59 23:59 Intake Total 460 / 750 710 / 960 1040 / 1220 420 / 420 Output Total 450 / 450 950 / 950 0 / 0 Balance 10 / 300 -240 / 10 1040 / 1220 420 / 420 Weight 160 lb 159 lb 12.657 oz 151 lb 14.4 oz 155 lb 8 oz Microbiology Reports for the Last 24 Hours: Microbiology 03/13/25 14:11 Blood Blood Culture - Preliminary NO GROWTH AFTER 24 HOURS 03/13/25 14:11 Blood Blood Culture - Preliminary NO GROWTH AFTER 24 HOURS Constitutional Constitutional: no acute distress and cooperative *Routine HEENT Exam Eye: Present PERRL *Routine Respiratory Exam Respiratory: Present CTA bilaterally; Absent accessory muscle use, wheezes or crackles *Routine Cardiovascular Exam Cardiovascular: Present RRR, Normal S1 and Normal S2; Absent murmur, gallop or rubs *Routine Abdominal Exam Abdominal: Present soft; Absent tenderness *Routine Extremities Exam Extremities: Present pulses intact; Absent cyanosis or edema *Routine Skin Exam Skin: Present intact; Absent erythema or wounds *Routine Neurological Exam Neurological: Present alert and oriented X3 Routine Psychiatric Exam Psychiatric: Present cooperative Progress Note: A&P Assessment and plan (1) STEMI (ST elevation myocardial infarction): Status: Acute (2) Tobacco use disorder: Status: Acute (3) COPD (chronic obstructive pulmonary disease): Status: Chronic (4) GERD (gastroesophageal reflux disease): Status: Chronic (5) HFrEF (heart failure with reduced ejection fraction): Status: Acute (6) Allergic rhinitis: Status: Acute (7) Tobacco abuse: Status: Acute Assessment and Plan Assessment and Plan for All Diagnoses:: Late Presentation AW-STEMI - new dx this admission with angina, anterior lead q-waves, and elevated Trop - LHC - Severe dz in LAD/1st diagonal stented successfully. LCX 70% left to med management - ECHO - EF 20% septal, anteroseptal, inferoseptal LV sol are akinetic - Plan: 48 obs post RI. DAPT, BB, Statin, GDMT for HF. LifeVest. 03/14: Stable but BP low with MAP of 67, will continue to monitor. LifeVest approved/pending. 03/15: Stable with low BP. Able to ambulate asymptomatic and independent. HFrEF, Ischemic Cardiomyopathy - new dx this admission with EF 20% and septal, anteroseptal, inferoseptal LV wall akinesis - secondary to late presentation RI - reviewed with patient in detail, late presentation portends poor myocardial recovery - No evidence of vol overload at this time - Add Toprol XL, Entresto, Jardiance. Hold on Aldactone for now due to low BP. Hopefully add later - Pt agreeable to Lifevest for now. Will repeat limited ECHO 1 month to assess LV recovery. Consider ICD at that time. 03/14: stable/euvolemic. MAP 67, unable to advance GDMT. Monitor closely. 03/15: Remains euvolemic, unable to advance GDMT due to hypotension Transaminitis - AST only - secondary to STEMI, ALT normal, ok to give statin 03/14: Resolving Tob Use, presumed COPD - recommend complete cessation, pt agreeable, currently wearing transdermal Nicotine - continue home inhalers Hyperlipidemia - LDL 74, goal is <55 - hold statin for now due to transaminitis Leukocytosis/Rhinovirus - WBC 17k, Temp 100.4, Post for rhinovirus - plans per hospitalist 03/15: No VT or VF episodes 48 hours following late presentation STEMI. His LV function is severely impaired and there is tethering of the posterior mitral valve leaflet which is ischemic in etiology. Patient remains euvolemic and is able to ambulate unassisted on the telemetry floor. LifeVest has been placed and he is on max tolerated GDMT. He lives with his son and girlfriend who can both help provide care for him if needed over the coming days. I advise no heavy exertion and no driving until further notice. We will continue to monitor his heart rate and rhythm remotely with LifeVest readings. Call our office or return to the emergency room with any worsening of symptoms, otherwise follow-up in office 1 week. Very high risk for readmission and further morbidity mortality. CV discharge medications: Aspirin 81 mg 1 p.o. daily Effient 10 mg 1 p.o. daily Atorvastatin 40 mg 1 p.o. nightly Ntg 0.4mg SL PRN CP Toprol XL 25 mg 1 p.o. daily
--- NOTE | 2025-03-19 11:16 | SW/DCPLANNER ---
Phoned patient x2. Was not able to leave message due to no voice mail not being sat up. Radha Harrington
== END 2025-03-15 14:44 | disposition home or self-care (01) | DRG 321 ==
LOC: ER 13:07 → CATHLAB 13:12 → ICU 14:03 → 2ND 03-13 10:14
PROVIDERS: Internal Medicine; Physician Assistant; Student in an Organized Health Care Education/Training Program; Admitting Provider Internal Medicine Adolescent Medicine; Emergency Provider Emergency Medicine; Visit Provider Internal Medicine Adolescent Medicine
PROC: 4A023N7 Measurement of Cardiac Sampling and Pressure, Left Heart, Percutaneous Approach (ICD-10-PCS; CPT 93452; principal; 2025-03-12 12:30)
DX: I21.09 ST elevation (STEMI) myocardial infarction involving other coronary artery of anterior wall (principal); I50.22 Chronic systolic (congestive) heart failure; J44.9 Chronic obstructive pulmonary disease, unspecified; K21.9 Gastro-esophageal reflux disease without esophagitis; F17.210 Nicotine dependence, cigarettes, uncomplicated; I25.10 Atherosclerotic heart disease of native coronary artery without angina pectoris; B34.8 Other viral infections of unspecified site; I25.5 Ischemic cardiomyopathy; R74.01 Elevation of levels of liver transaminase levels; E78.5 Hyperlipidemia, unspecified; Z79.899 Other long term (current) drug therapy
CPT/HCPCS: 36415; 71045; 71275; 80053; 80061; 80074; 81001; 83036; 83690; 83735; 83880; 84443; 84484; 85025; 85347; 85378; 85610; 87040; 87389; 87633; 93005; 93306; 93308; 99152; 99153; C1725; C1769; C1874; J1650; J1885; J2003; J2250; J2405; J2470; J2550; J7030; J7040; Q9957; Q9967

== ENCOUNTER 2025-04-16 14:06 | Outpatient (CLI) | payer OTHER, SELFPAY ==
--- NOTE | 2025-04-16 14:30 | CA_ITS ---
APPROVED REPORT EXAM: Limited 2D Echocardiogram with contrast Train Examiner: Kizzy Gruber CRT Ht: 5 ft 7 in Wt: 150lbs BSA: 1.79 BP: 98/67 mmHg Indications: EF 20% 03/12/25 & 03/15/25 stents , Ef check post stenting Echo Enhancing Agent Indication: Endocardial border delineation Agent(s) / Amount(s) Used: Definity, Definity cc Comments: Definity given M-Mode Dimensions RVDd 1.75 cm (0.9-2.6) LVDd 4.96 cm (3.5-5.7) LVDs 4.31 cm (3.5-5.7) IVSd 0.46 cm (0.6-1.1) PWd 1.03 cm (0.6-1.1) EF (Teich) 28.10% FS 13.10% EDV (Teich) 116.10 mL ESV (Teich) 83.50 mL Other Information Study Quality: Fair Conclusion This is a limited TTE to evaluate for LV systolic function. Limited windows are obtained. Ultrasound enhancing agent is administered. The left ventricle is normal in size. There is normal LV wall thickness. There is severe global hypokinesis present. The septal, anteroseptal, and inferoseptal LV sol are akinetic. LVEF is 15-20%. Ultrasound enhancing agent demonstrates no evidence of LV thrombus. Electronically signed by : Fawn Haas MD 04/16/2025 16:36:00
[2025-04-16] MEDS: DEFINITY US ECHO CONTRAST 2ML INJ 2 MG IV (14:54)
== END 2025-04-16 23:59 | disposition home or self-care (01) ==
LOC: RT 14:06
PROVIDERS: PCP Nurse Practitioner Family; Visit Provider Physician Assistant
DX: I21.3 ST elevation (STEMI) myocardial infarction of unspecified site (principal); R93.1 Abnormal findings on diagnostic imaging of heart and coronary circulation; Z95.5 Presence of coronary angioplasty implant and graft
CPT/HCPCS: 93308; Q9957

== ENCOUNTER 2025-06-11 18:52 | Emergency (ER) | payer OTHER, SELFPAY ==
[2025-06-11] VITALS (10 sets, daily range): BP systolic 116–129; BP diastolic 70–88; PULSE 75–88; RESP 15–26; TEMP 36.4–36.8; O2SAT 94–99; BMI 23.5
--- OUTSIDE RECORDS SUMMARY | 2025-06-11 19:10 | XMS_ITS | Data Portability ---
Author Organization [employer] Address [address] [place] [address] Assessment No assessment recorded. Plan of Treatment Reminders Order Date Submit Date Provider Last Modified By Organization Details Last Modified Time Details Appointments None recorded. Lab drug screen, urine 2024 025 [place] [facility] [address] [place], [address], 5 15:07:27 unlisted lab - gabapentin, urine 2024 025 [place] [facility]), [address] [facility], [place], [address], 5 15:07:27 lipid panel, serum 2023 024 [facility], [address], [place], [address], 4 06:50:58 CMP, serum or plasma 2023 024 [facility], [address], [place], [address], 4 06:50:59 RPR (rapid plasma reagin), serum 2023 024 [facility], [address], [place], [address], 4 06:51:03 drug screen, urine 2023 024 [place] [facility], [address], [place], [address], 4 13:47:47 CBC w/ auto diff 2023 [address] [place] [facility], [address], [place], [address], 4 06:51:00 PSA, serum or plasma 2023 [address] [place] [facility], [address], [place], [address], 4 06:51:02 hepatitis C virus Ab, serum 2023 [address] [place] [facility], [address], [place], [address], 4 06:51:01 HIV 1+2 Ab + HIV1 p24 Ag, quantitativ e immunoassay , serum 2023 [address] [place] [facility], [address], [place], [address], 4 06:51:01 Referral None recorded. Procedures None recorded. Surgeries None recorded. Imaging None recorded. Medication Orders nitroglycer in 0.4 mg sublingual tablet 2024 025 [facility], [facility] [place], [address], 5 16:13:51 omeprazole 20 mg capsule,del ayed release 2024 025 [place] [facility], [address] [place], [address], 5 16:20:25 ondansetron 8 mg disintegrat ing tablet 2024 025 [facility], [address] [place] [address], [address], 10:42:21 paroxetine 10 mg tablet 2024 025 [facility], [address] [place] [address], [address], 18:06:27 Remeron 30 mg tablet 2024 025 [facility], [address] [place] [address], [address], 18:06:29 ProAir HFA 90 mcg/actuati on aerosol inhaler 2024 025 [facility], [address] [place] [address], [address], 18:06:28 Symbicort 160 mcg-4.5 mcg/actuati on HFA aerosol inhaler 2024 025 [facility], [address] [place] [address], [address], 18:06:26 omeprazole 20 mg capsule,del ayed release 2024 025 [facility], [address] [place] [address], [address], 11:23:59 Remeron 30 mg tablet 2024 025 [facility], [address] [place] [address], [address], 17:34:02 paroxetine 10 mg tablet 2024 025 [facility], [address] [place] [address], [address], 17:34:03 Symbicort 160 mcg-4.5 mcg/actuati on HFA aerosol inhaler 2024 025 [facility], [address] [place] [address], [address], 5 17:34:03 ProAir HFA 90 mcg/actuati on aerosol inhaler 2024 025 [facility], [address] [place] [address], [address], 5 17:34:01 omeprazole 20 mg capsule,del ayed release 2023 024 [facility], [address] [place] [address], [address], 4 17:58:47 Remeron 30 mg tablet 2023 024 [facility], [address] [place] [address], [address], 4 12:16:52 paroxetine 10 mg tablet 2023 024 [facility], [address] [place] [address], [address], 4 12:16:52 Symbicort 160 mcg-4.5 mcg/actuati on HFA aerosol inhaler 2023 024 [facility], [address] [place] [address], [address], 4 12:16:51 ProAir HFA 90 mcg/actuati on aerosol inhaler 2023 024 [facility], [address] [place] [address], [address], 4 12:16:53 cyclobenzap rine 10 mg tablet 2023 024 [facility], [address] [facility], [place], [address], 5 15:47:00 gabapentin 300 mg capsule 2023 024 [facility], [address] [facility], [place], [address], 5 15:47:07 omeprazole 20 mg capsule,del ayed release 2023 024 [place] [facility], [address], [place], [address], 4 11:50:40 Remeron 30 mg tablet 2023 024 [place] [facility], [address], [place], [address], 4 12:34:49 paroxetine 10 mg tablet 2023 024 [place] [facility], [address], [place], [address], 4 12:34:48 Symbicort 160 mcg-4.5 mcg/actuati on HFA aerosol inhaler 2023 024 [place] [facility], [address], [place], [address], 4 15:28:20 ProAir HFA 90 mcg/actuati on aerosol inhaler 2023 024 [place] [facility], [address], [place], [address], 4 12:34:47 cyclobenzap rine 10 mg tablet 2023 024 [facility], [address], [place], [address], 5 15:47:00 omeprazole 20 mg capsule,del ayed release 2023 024 [place] [facility], [address], [place], [address], 4 17:18:08 Zofran 4 mg tablet 2023 024 [facility] [facility], [address], [place], [address], 5 14:21:44 Remeron 30 mg tablet 2023 024 [place] [facility], [address], [place], [address], 4 16:01:51 paroxetine 10 mg tablet 2023 024 [place] [facility], [address], [place], [address], 4 16:01:52 Symbicort 160 mcg-4.5 mcg/actuati on HFA aerosol inhaler 2023 024 [place] [facility], [address], [place], [address], 4 16:01:53 ProAir HFA 90 mcg/actuati on aerosol inhaler 2023 024 [place] [facility], [address], [place], [address], 4 16:01:50 cyclobenzap rine 10 mg tablet 2023 024 [place] [facility], [address], [place], [address], 5 15:47:00 Flonase Allergy Relief 50 mcg/actuati on nasal spray,suspe nsion 2023 024 [place] [facility], [address], [place], [address], 15:46:55 Patient TargetsNo targets recorded. Patient InstructionsNo instructions recorded. Reason for Referral None Reported. Results Created Date Observation Date Name Description Value Unit Range Abnormal Flag Note LastModifiedBy Organization Detail LastModifiedTime 01/18/20 24 01/19/2024 LIPID PANEL , STAND NABILA cholesterol, total 196 mg/dL <200 normal Not Available [facility] [address] [facility] [place], [address], 01/19/2024 11:02:26 01/18/20 24 01/19/2024 LIPID PANEL , STAND NABILA HDL cholesterol 61 mg/dL > or = 40 normal Not Available [facility] [address] [facility], [place], [address], 01/19/2024 11:02:26 01/18/20 24 01/19/2024 LIPID PANEL , STAND NABILA triglyceride s 78 mg/dL <150 normal Not Available [facility] [address] [facility], [place], [address], 01/19/2024 11:02:26 01/18/2001/19/2024 LIPID PANEL , STAND NABILA LDL-choleste rol 118 mg/dL _(selvin c) high Refer ence range : <100 James able range <100 mg/dL for prima ry preve ntion ; <70 mg/dL for patie nts with CHD or diabe tic patie nts with > or = 2 CHD risk facto rs. LDL-C is now calcu lated using the Harmony n-Hop kins calcu latnathan n, which is a valid ated novel candelario james than the Fried john equat ion in the estim ation of LDL-C . Harmony washburn SS et al. KENNEDY. 2013; 310(1 9): 2061- 2068 (http ://ed ucati on.Qu estDi Hiveoos. com/f aq/FA Q164) Not Available [facility] [address] [facility], [place], [address], 01/19/2024 11:02:26 01/18/20 24 01/19/2024 LIPID PANEL , STAND NABILA chol/HDLC ratio 3.2 (calc ) <5.0 normal Not Available [facility] [address] [facility] [place], [address], 01/19/2024 11:02:26 01/18/20 24 01/19/2024 LIPID PANEL , STAND NABILA non HDL cholesterol 135 mg/dL _(selvin c) <130 high For patie nts with diabe herminia plus 1 major ASCVD risk facto r, treat ing to a non-H DL-C goal of <100 mg/dL (LDL- C of <70 mg/dL ) is consi dered a thera peuti c optio n. Not Available [facility] [address] [place], [address], 01/19/2024 11:02:26 01/18/20 24 01/19/2024 COMPR EHENS SAM METAB OLIC PANEL glucose 98 mg/dL 65-99 normal Fasti ng refer ence inter sherley Not Available [facility] [address] [facility] [place], [address], 01/19/2024 11:02:27 01/18/20 24 01/19/2024 COMPR EHENS SAM METAB OLIC PANEL urea nitrogen (BUN) 13 mg/dL 7-25 normal Not Available [facility] [address] [facility] [place], [address], 01/19/2024 11:02:27 01/18/20 24 01/19/2024 COMPR EHENS SAM METAB OLIC PANEL creatinine 1.06 mg/dL 0.70-1 .30 normal Not Available [facility] [address] [place], [address], 01/19/2024 11:02:27 01/18/20 24 01/19/2024 COMPR EHENS SAM METAB OLIC PANEL eGFR 83 mL/mi n/1.7 3m2 > or = 60 normal Not Available [facility] [address] [place], [address], 01/19/2024 11:02:27 01/18/20 24 01/19/2024 COMPR EHENS SAM METAB OLIC PANEL BUN/creatini ne ratio SEE NOTE: (calc ) 6-22 Not Repor mauricio: BUN and Creat inine are withi n refer ence range . Not Available [facility] [address] [facility] [place], [address], 01/19/2024 11:02:27 01/18/20 24 01/19/2024 COMPR EHENS SAM METAB OLIC PANEL sodium 137 mmol/ L 135-14 6 normal Not Available [facility] [address] [facility] [place], [address], 01/19/2024 11:02:27 01/18/20 24 01/19/2024 COMPR EHENS SAM METAB OLIC PANEL potassium 4.8 mmol/ L 3.5-5. 3 normal Not Available [facility] [address] [facility] [place], [address], 01/19/2024 11:02:27 01/18/20 24 01/19/2024 COMPR EHENS SAM METAB OLIC PANEL chloride 102 mmol/ L 98-110 normal Not Available [facility] [address] [place], [address], 01/19/2024 11:02:27 01/18/20 24 01/19/2024 COMPR EHENS SAM METAB OLIC PANEL carbon dioxide 28 mmol/ L 20-32 normal Not Available [facility] [address] [facility] [place], [address], 01/19/2024 11:02:27 01/18/20 24 01/19/2024 COMPR EHENS SAM METAB OLIC PANEL calcium 9.4 mg/dL 8.6-10 .3 normal Not Available [facility] [address] [place], [address], 01/19/2024 11:02:27 01/18/20 24 01/19/2024 COMPR EHENS SAM METAB OLIC PANEL protein, total 6.5 g/dL 6.1-8. 1 normal Not Available [facility] [address] [facility] [place], [address], 01/19/2024 11:02:27 01/18/20 24 01/19/2024 COMPR EHENS SAM METAB OLIC PANEL albumin 4.2 g/dL 3.6-5. 1 normal Not Available [facility] [address] [facility], [address], 01/19/2024 11:02:27 01/18/20 24 01/19/2024 COMPR EHENS SAM METAB OLIC PANEL globulin 2.3 g/dL_ (calc ) 1.9-3. 7 normal Not Available [facility] [address] [facility] [place], [address], 01/19/2024 11:02:27 01/18/20 24 01/19/2024 COMPR EHENS SAM METAB OLIC PANEL albumin/glob ulin ratio 1.8 (calc ) 1.0-2. 5 normal Not Available [facility] [address] [place], [address], 01/19/2024 11:02:27 01/18/20 24 01/19/2024 COMPR EHENS SAM METAB OLIC PANEL bilirubin, total 0.5 mg/dL 0.2-1. 2 normal Not Available [facility] [address] [facility] [place], [address], 01/19/2024 11:02:27 01/18/20 24 01/19/2024 COMPR EHENS SAM METAB OLIC PANEL alkaline phosphatase 61 U/L 35-144 normal Not Available [facility] [address] [place], [address], 01/19/2024 11:02:27 01/18/20 24 01/19/2024 COMPR EHENS SAM METAB OLIC PANEL AST 12 U/L 10-35 normal Not Available [facility] [address] [place], [address], 01/19/2024 11:02:27 01/18/20 24 01/19/2024 COMPR EHENS SAM METAB OLIC PANEL ALT 8 U/L 9-46 low Not Available [facility] [address], [place], [address], 01/19/2024 11:02:27 01/18/20 24 01/19/2024 CBC (INCL UDES DIFF/ PLT) white blood cell count 6.6 thous and/u L 3.8-10 .8 normal Not Available [facility] [address] [place], [address], 01/19/2024 06:51:00 01/18/2001/19/2024 CBC (INCL UDES DIFF/ PLT) red blood cell count 5.08 nathan on/uL 4.20-5 .80 normal Not Available [facility] [address], [place], [address], 01/19/2024 06:51:00 01/18/2001/19/2024 CBC (INCL UDES DIFF/ PLT) hemoglobin 14.9 g/dL 13.2-1 7.1 normal Not Available [facility] [address], [place], [address], 01/19/2024 06:51:00 01/18/20 24 01/19/2024 CBC (INCL UDES DIFF/ PLT) hematocrit 44.4 % 38.5-5 0.0 normal Not Available [facility] [address] [facility] [place], [address], 01/19/2024 06:51:00 01/18/2001/19/2024 CBC (INCL UDES DIFF/ PLT) MCV 87.4 fL 80.0-1 00.0 normal Not Available [facility] [address] [place], [address], 01/19/2024 06:51:00 01/18/2001/19/2024 CBC (INCL UDES DIFF/ PLT) MCH 29.3 pg 27.0-3 3.0 normal Not Available [facility] [address] [facility] [place], [address], 01/19/2024 06:51:00 01/18/2001/19/2024 CBC (INCL UDES DIFF/ PLT) MCHC 33.6 g/dL 32.0-3 6.0 normal Not Available [facility] [address] [facility] [place], [address], 01/19/2024 06:51:00 01/18/2001/19/2024 CBC (INCL UDES DIFF/ PLT) RDW 12.9 % 11.0-1 5.0 normal Not Available [facility] [address] [place], [address], 01/19/2024 06:51:00 01/18/2001/19/2024 CBC (INCL UDES DIFF/ PLT) platelet count 286 thous and/u L 140-40 0 normal Not Available [facility] [address] [place], [address], 01/19/2024 06:51:00 01/18/2001/19/2024 CBC (INCL UDES DIFF/ PLT) MPV 9.4 fL 7.5-12 .5 normal Not Available [facility] [address], [place], [address], 01/19/2024 06:51:00 01/18/20 24 01/19/2024 CBC (INCL UDES DIFF/ PLT) absolute neutrophils 3056 cells /uL 1500-7 800 normal Not Available [facility] [address] [facility], [place], [address], 01/19/2024 06:51:00 01/18/20 24 01/19/2024 CBC (INCL UDES DIFF/ PLT) absolute lymphocytes 2930 cells /uL 850-39 00 normal Not Available [facility] [address], [place], [address], 01/19/2024 06:51:00 01/18/2001/19/2024 CBC (INCL UDES DIFF/ PLT) absolute monocytes 442 cells /uL 200-95 0 normal Not Available [facility] [address], [place], [address], 01/19/2024 06:51:00 01/18/2001/19/2024 CBC (INCL UDES DIFF/ PLT) absolute eosinophils 132 cells /uL 15-500 normal Not Available [facility] [address], [place], [address], 01/19/2024 06:51:00 01/18/20 24 01/19/2024 CBC (INCL UDES DIFF/ PLT) absolute basophils 40 cells /uL 0-200 normal Not Available [facility] [address], [place], [address], 01/19/2024 06:51:00 01/18/2001/19/2024 CBC (INCL UDES DIFF/ PLT) neutrophils 46.3 % normal Not Available [facility] [address], [place], [address], 01/19/2024 06:51:00 01/18/20 24 01/19/2024 CBC (INCL UDES DIFF/ PLT) lymphocytes 44.4 % normal Not Available [facility] [address] [place], [address], 01/19/2024 06:51:00 01/18/20 24 01/19/2024 CBC (INCL UDES DIFF/ PLT) monocytes 6.7 % normal Not Available [facility] [address] [place], [address], 01/19/2024 06:51:00 01/18/2001/19/2024 CBC (INCL UDES DIFF/ PLT) eosinophils 2.0 % normal Not Available [facility] [address] [place], [address], 01/19/2024 06:51:00 01/18/20 24 01/19/2024 CBC (INCL UDES DIFF/ PLT) basophils 0.6 % normal Not Available [facility] [address] [place], [address], 01/19/2024 06:51:00 01/18/20 24 01/20/2024 HEPAT ITIS [...] a test for HCV RNA (test code 91618 ) is sugge sted. For addit ional infor carlos n pleas e refer to http: //[facility] hayes veraque stdia gnost ics.c om/fa q/FAQ 22v1 (This link is being provi ded for infor carlos nal/ educa gaye l purpo ses only. ) Not Available [facility] [address] [facility], [place], [address], 01/20/2024 01:24:05 01/18/2001/20/2024 HIV 1/2 ANTIG EN/AN [...] state law prohi bits you from [facility] discl osure of the infor [...] matio n pleas e refer to http: //[facility] hayes washburn.que stdia gnost ics.c om/fa q/FAQ 106 (This link is being provi ded for infor matio nal/ educa gaye l purpo ses only. ) The perfo rmanc e of this assay has not been clini zi valid ated in patie nts less than 2 years old. Not Available [facility] [address] [facility], [place], [address], 01/20/2024 01:24:06 01/18/2001/19/2024 PSA, TOTAL PSA, total 0.74 NG/mL < [...] absen ce of disea se. Not Available [facility] [address] [place], [address], 01/19/2024 14:13:36 01/18/20 24 01/19/2024 RPR (DX) W/REF L TITER AND T. PALLI DUM AB, IA RPR (DX) w/refl titer and confirmatory testing NON-RE ACTIVE non-re active normal No labor atory evide nce of syphi lis. If recen t expos ure is suspe cted, submi t a new sampl e in 2-4 weeks . Not Available [facility] [address] [place], [address], 01/19/2024 12:53:08 01/18/20 24 01/19/2024 DRUG MONIT OR, PANEL 1, W/CON F, URINE amphetamines NEGATI VE NG/mL <500 normal Not Available [facility] [address] [facility] [place], [address], 01/19/2024 13:47:47 01/18/20 24 01/19/2024 DRUG MONIT OR, PANEL 1, W/CON F, URINE barbiturates NEGATI VE NG/mL <300 normal Not Available [facility] [address] [place], [address], 01/19/2024 13:47:47 01/18/20 24 01/19/2024 DRUG MONIT OR, PANEL 1, W/CON F, URINE benzodiazepi chikis NEGATI VE NG/mL <100 normal Not Available [facility] [address] [place], [address], 01/19/2024 13:47:47 01/18/20 24 01/19/2024 DRUG MONIT OR, PANEL 1, W/CON F, URINE cocaine metabolite NEGATI VE NG/mL <150 normal Not Available [facility] [address] [place], [address], 01/19/2024 13:47:47 01/18/20 24 01/19/2024 DRUG MONIT OR, PANEL 1, W/CON F, URINE marijuana metabolite NEGATI VE NG/mL <20 normal Not Available [facility] [address] [place], [address], 01/19/2024 13:47:47 01/18/20 24 01/19/2024 DRUG MONIT OR, PANEL 1, W/CON F, URINE methadone metabolite NEGATI VE NG/mL <100 normal Not Available [facility] [address] [place], [address], 01/19/2024 13:47:47 01/18/20 24 01/19/2024 DRUG MONIT OR, PANEL 1, W/CON F, URINE opiates NEGATI VE NG/mL <100 normal Not Available [facility] [address] [place], [address], 01/19/2024 13:47:47 01/18/20 24 01/19/2024 DRUG MONIT OR, PANEL 1, W/CON F, URINE oxycodone NEGATI VE NG/mL <100 normal Not Available [facility] [address] [place], [address], 01/19/2024 13:47:47 01/18/20 24 01/19/2024 DRUG MONIT OR, PANEL 1, W/CON F, URINE phencyclidin e NEGATI VE NG/mL <25 normal Not Available [facility] [address] [place], [address], 01/19/2024 13:47:47 01/18/20 24 01/19/2024 DRUG MONIT OR, PANEL 1, W/CON F, URINE creatinine 114.4 mg/dL > or = 20.0 normal Not Available [facility] [address] [place], [address], 01/19/2024 13:47:47 01/18/20 24 01/19/2024 DRUG MONIT OR, PANEL 1, W/CON F, URINE pH 7.8 4.5-9. 0 normal Not Available [facility] [address] [place], [address], 01/19/2024 13:47:47 01/18/20 24 01/19/2024 DRUG MONIT OR, PANEL 1, W/CON F, URINE oxidant NEGATI VE mcg/m L <200 normal Not Available [facility] [address] [place], [address], 01/19/2024 13:47:47 01/18/20 24 01/19/2024 DRUG MONIT ORING TEMPL ATE notes and comments This drug testi ng is for medic al treat ment only. Alpa sis was perfo rmed as non-f orens ic testi ng and these resul ts shoul d be used only [facility] to rende r diagn osis or treat ment, or to monit or progr ess of medic al condi tions . Healt [facility] Provi ders needi ng Inter preta tion rosio tance , pleas e conta ct us at 1.877 .40.R XTOX (1.87 [phone] ) M-F, 8am to 10pm EST Not Available [facility] [address] [place], [address], 01/19/2024 13:47:48 11/23/19 25 11/23/2024 DRUG PROFI LE,UR ,9 DRUGS ,BUND amphetamines , urine See Final Result s NG/mL cutoff =1000 Amphe tamin e test inclu rajesh Amphe tamin e and Metha mphet amine . Not Available [facility] ([facility]) [address] [place], [address], 11/25/2024 15:07:27 11/23/19 25 11/23/2024 DRUG PROFI LE,UR ,9 DRUGS ,BUND barbiturate Negati ve NG/mL cutoff =300 Not Available [facility] ([facility]) [address] [place], [address], 11/25/2024 15:07:27 11/23/19 25 11/23/2024 DRUG PROFI LE,UR ,9 DRUGS ,BUND benzodiazepi chikis Negati ve NG/mL cutoff =300 Not Available [facility] ([facility]) [address] [place], [address], 11/25/2024 15:07:27 11/23/19 25 11/23/2024 DRUG PROFI LE,UR ,9 DRUGS ,BUND cannabinoid Negati ve NG/mL cutoff =50 Not Available [facility] ([facility]) [address] [place], [address], 11/25/2024 15:07:27 11/23/19 25 11/23/2024 DRUG PROFI LE,UR ,9 DRUGS ,BUND cocaine (metab.) Negati ve NG/mL cutoff =300 Not Available [facility] ([facility]) [address] [place], [address], 11/25/2024 15:07:27 11/23/19 25 11/23/2024 DRUG PROFI LE,UR ,9 DRUGS ,BUND opiates Negati ve NG/mL cutoff =300 Opiat e test inclu rajesh Codei ne and Morph ine only. Not Available [facility] ([facility]) [address] [place], [address], 11/25/2024 15:07:27 11/23/19 25 11/23/2024 DRUG PROFI LE,UR ,9 DRUGS ,BUND phencyclidin e Negati ve NG/mL cutoff =25 Not Available [facility] ([facility]) [address] [place], [address], 11/25/2024 15:07:27 11/23/19 25 11/23/2024 DRUG PROFI LE,UR ,9 DRUGS ,BUND methadone screen, urine Negati ve NG/mL cutoff =300 Not Available [facility] ([facility]) [address] [place], [address], 11/25/2024 15:07:27 11/23/19 25 11/23/2024 DRUG PROFI LE,UR ,9 DRUGS ,BUND propoxyphene , urine Negati ve NG/mL cutoff =300 Eff ectiv e December 04, 2024, this test will be disco ntinu ed. Pleas e conta ct your Lab[facility] rp repre senta tive for tova jenningsd repla cemen t test optio ns. Not Available [facility] ([facility]) [address] [facility], [place], [address], 11/25/2024 15:07:27 11/23/19 25 11/25/2024 DRUG PROFI LE,UR ,9 DRUGS ,BUND amphetamines Negati ve cutoff =1000 Amphe tamin e test inclu rajesh Amphe tamin e and Metha mphet amine . Not Available [facility] ([facility]) [address] [facility], [place], [address], 11/25/2024 15:07:27 11/23/19 25 11/25/2024 GABAP ENTIN , URINE gabapentin, urine Negati ve ug/mL Not Available [facility] ([facility]) [address] [place], [address], 11/25/2024 15:07:27 04/16/20 25 04/16/2025 US, doppl er echoc ardio gram No observ ation record ed. [email or web address] [facility] [address], [place], [address], 04/16/2025 17:05:54 Result Notes None recorded. 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 44208894939 9100 Active 2020 Not Available [facility] 22:18:15 Body mass index 20-24 - normal 478473581 Completed 202012/26/2021 Not Available [facility] 22:18:15 Chronic obstruct sam pulmonar y disease 69961706 Active 2020 Problem Code: J44.9; Problem Code Type: ICD-10; Not Available [facility] 22:18:15 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 03022592330 9105 Active 2020 Problem Code: M51.16; Problem Code Type: ICD-10; Not Available [facility] 22:18:15 Gastro-e sophagea l reflux disease with esophagi tis 247937157 Active 2021 Problem Code: K21.00; Problem Code Type: ICD-10; Not Available [facility] 22:18:15 Body mass index 25-29 - overweig ht 982328647 Active 2021 Problem Code: Z68.27; Problem Code Type: ICD-10; Not Available [facility] 22:18:15 Mixed hyperlip idemia 906015979 Active 2021 Problem Code: E78.2; Problem Code Type: ICD-10; Not Available [facility] 22:18:14 Finding of general energy 222220547 Active 2021 Problem Code: R53.83; Problem Code Type: ICD-10; Not Available [facility] 22:18:15 Nocturia 574104230 Active 2021 Problem Code: R35.1; Problem Code Type: ICD-10; Not Available [facility] 22:18:15 Myocardi al infarcti on 48403602 Active 2024 Cristina Wright APRN [address] [place] [address], [phone] , [employer] 15:52:58 Heart failure 91886168 Active 2024 Cristina Wright APRN [address] [place] [address], [address] [place] [address] , [facility] 15:53:58 Notes:*Problem Name: Encount er for general adult medical examination *ICD-10 Codes: Z00.00 *Problem Status: Chronic *Comments: [id number]: 'Z00.0'; *Problem Code: Z00.0 *Problem Code Type: ICD-10 *Note Date: 10/01/2021 Problem Notes None recorded. Procedures Surgical History Date Name Laterality Status Provider Name and Address Organization Details Recorded Time placement of stent in coronary artery completed Cristina Wright APRN [address] [place] [address], [phone], [employer]. 03/20/2025 15:39:43 Imaging Results None recorded. Procedure Notes None recorded. Medical Equipment None Reported. Allergies No known drug allergies Medications Name Sig Start Date Stop Date Status Note LastModified by Organization Details LastModified Time cyclobenzap rine 10 mg tablet TAKE ONE TABLET BY MOUTH TWICE DAILY NEEDED FOR back pain 2024 active Not Available Not Available Not Avai lable atorvastati n 40 mg tablet Take 1 tablet every day [...] completed Not Available Not Available Not Available aspirin 81 mg tablet,surendra yed release Take 1 tablet every day by oral route. 2024 active Not Available Not Available Not Avai lable ondansetron 8 mg disintegrat ing tablet Place 1 tablet twice a day by transling ual route as needed, for nausea. 2024 active Not Available Not Available Not Avai lable nitroglycer in 0.[address] 1 tablet by sublingua l route as directed, for CP and call 911. 2024 active Not Available Not Available Not Avai lable gabapentin 300 mg capsule TAKE ONE CAPSULE BY MOUTH NIGHTLY AT BEDTIME FOR back pain 03/20 completed Not Available Not Available Not Available omeprazole 20 mg capsule,del ayed release take [...] Not Available Not Available Not Avai lable prasugrel HCl 10 mg tablet Take 1 tablet every day by oral route. 2024 active Not Available Not Available Not Avai lable Flonase Allergy Relief 50 mcg/actuati on nasal spray,suspe nsion Alba 1 spray(s) every day by intranasa l route. 03/20 completed Not Available Not Available Not Available metoprolol succinate ER 25 mg capsule sprinkle, ext. release 24 hr Take 1 capsule every day by oral route. 2024 active Not Available Not Available Not Avai [employer]ak [employer] COVID-19 Antigen Home Test kit DIRECTED 06/26 completed Not Available Not Available Not Available Vitals Date Recorded Body height Body mass index (BMI) Body weight Body temperature Heart rate Oxygen saturation Oxygen saturation in Arterial blood by Pulse oximetry Systolic And Diastolic Provider Name and Address Organization Details Last Updated DateTime 4 167.64 cm 22.6 kg/m2 80225.6 5 g 97.7 [degF] 89 /min 97 % 97 % 103/58 mm[Hg] GIOVANNY FREDERICKNEAR [employer] 4 16:07:46 Date Recorded Body height Body mass index (BMI) Body weight Heart rate Oxygen saturation Oxygen saturation in Arterial blood by Pulse oximetry Systolic And Diastolic Provider Name and Address Organization Details Last Updated DateTime 5 167.64 cm 24.5 kg/m2 52978.0 4 g 89 /min 97 % 97 % 128/78 mm[Hg] Elaine Vieira [employer] 5 14:05:04 Date Recorded Body height Body mass index (BMI) Body weight Body temperature Heart rate Oxygen saturation Oxygen saturation in Arterial blood by Pulse oximetry Systolic And Diastolic Provider Name and Address Organization Details Last Updated DateTime 4 167.64 cm 24.5 kg/m2 25599.0 4 g 98 [degF] 99 /min 98 % 98 % 118/64 mm[Hg] [facility]NY [facility] [employer] 4 11:23:16 Date Recorded Body height Body mass index (BMI) Body weight Body temperature Heart rate Oxygen saturation Oxygen saturation in Arterial blood by Pulse oximetry Systolic And Diastolic Provider Name and Address Organization Details Last Updated DateTime 5 167.64 cm 24.6 kg/m2 31283.7 6 g 98.1 [degF] 93 /min 97 % 97 % 90/56 mm[Hg] [facility] 5 15:46:50 Date Recorded Body height Body mass index (BMI) Body weight Body temperature Heart rate Oxygen saturation Oxygen saturation in Arterial blood by Pulse oximetry Systolic And Diastolic Provider Name and Address Organization Details Last Updated DateTime 4 167.64 cm 25.1 kg/m2 46544.6 9 g 97.7 [degF] 112 /min 97 % 97 % 115/71 mm[Hg] GIOVANNY [employer] 4 16:55:19 Social History Question Answer Notes LastModified by Easiaid ion Details LastModified Time Tobacco Smoking Status Current Every Day Smoker SocialHistor yQuestion: 'Tobacco/Alc ohol/Supplem ents'; SocialHistor yResponse: 'Current Everyday Smoker'; Not Available [facility] 05/12/2022 22:55:26 Do You Have An Advance [...] Do You Have A Medical Power Of Safety Deposit Boxes Custodian? No Information not available 06/26/2022 What Was The Date Of Your Most Recent Tobacco Screening? 03/20/2025 Information not available 03/20/2025 What Is Your Current Pack Years? 30ormorepac kyears Information not available 06/26/2022 What Is Your [...] not available 06/26/2022 Do you have difficulty dressing, bathing, grooming, or toileting? No Information not available 06/26/2022 Mental Status [...] in father*Relative: Father Medical History Condition Response Heart Problems Y Coronary Artery Disease Y Reflux/GERD Y High Cholesterol Y Hospitalizations N Acid Reflux (GERD) Y Heart Disease Y Emergency room visit since last appointm ent. N Lung Disease Y Past Encounters Encounter ID Performer Location Encounter Start Date Encounter Closed Date Diagnosis/Indication Diagnosis SNOMED-CT Code Diagnosis ICD10 Code Diagnosis IMO Codes Diagnosis Note [id number] Cristina Wright[address] [address] 06/26/2022 15:22:51 06/26/2022 15:59:53 Radiculopathy due to lumbar intervertebral disc disorder 0697914651 80368 M51.16 D/c Gabapentin due to memory loss, [...] also again today recommende d smoking cessation. [id number] Cristina Wright, [address] [address] 01/13/2023 14:10:45 01/13/2023 16:27:07 Moderate major depression, single episode 10891075 F32.1 Chronic ob structive pulmonary disease 64654831 J44.9 Sherwin reviewed today, urine drug screen [...] today. 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 Radiculopa thy due to lumbar intervertebral disc disorder 2225569107 89693 M51.16 Trial of muscle relaxants and Cymbalta. Moderate m ajor depression, single episode 13815850 F32.1 Chronic ob structive pulmonary disease 26858944 J44.9 Continue inhalers. Smoking cessation was again recommende d. Gastro-eso phageal reflux disease with esophagitis 730200840 K21.00 Refill PPI today. [id number] Cristina Kyle [address] [address] 10/19/2023 15:53:43 10/19/2023 16:31:57 Moderate major depression, single episode 18788975 F32.1 Start Paxil 10 mg daily. He continues to refuse referral to MAT program and Behavioral Health. Chronic ob structive pulmonary disease 31433888 J44.9 Continue inhalers. Smoking cessation was again recommende d. Gastro-eso phageal reflux disease with esophagitis 151652918 K21.00 Refill PPI today. Zofran prn nausea. Radiculopa thy due to lumbar intervertebral disc disorder 9044803568 00910 M51.16 Continue Flexeril. [id number] Cristina Kyle[address] [address] 01/18/2024 10:59:59 01/18/2024 11:53:01 Chronic obstructive pulmonary disease 08870481 J44.9 Continue inhalers. Smoking cessation was again recommende d. Mixed hyperlipidemia 267 037228 E78.2 Nocturia 586549419 R35.1 Hepatitis C screening 41 8437126 Z11.59 HIV screening 331025964 Z11.4 History of recreational drug use 392396273 F19.21 Radiculopa thy due to lumbar intervertebral disc disorder 5812225777 99595 M51.16 Continue Flexeril. Moderate m ajor depression, single episode 73652085 F32.1 Continue Paxil and Remeron. Gastro-eso phageal reflux disease with esophagitis 446834019 K21.00 Refill PPI today. Tobacco de pendence caused by cigarettes 0029190997 0849028 F17.210 Smoking cessation encouraged . [id number] Cristina Wright[address] [address] 04/05/2024 16:34:49 04/05/2024 17:37:40 Radiculopathy due to lumbar intervertebral disc disorder 6367346910 47391 M51.16 Continue Flexeril. Sherwin reviewed. UDS was NML at last visit in January. [place] controlled substance agreement explained and signed to begin low dose gabapentin . Moderate m ajor depression, single episode 28786899 F32.1 Continue Paxil and Remeron. Gastro-eso phageal reflux disease with esophagitis 697136101 K21.00 Refill PPI today. Chronic ob structive pulmonary disease 98419914 J44.9 Continue inhalers. Smoking cessation was again recommende d. Tobacco de pendence caused by cigarettes 2547840605 0422996 F17.210 Smoking cessation encouraged . Body mass index 25-29 - overweight 637603865 Z68.25 [id number] [place] [address] 11/22/2024 13:50:52 11/22/2024 14:31:43 Moderate major depression, single episode 17651171 F32.1 Restart Paxil and Remeron. Gastro-eso phageal reflux disease with esophagitis 819145692 K21.00 Refill PPI today. Chronic ob structive pulmonary disease 00867029 J44.9 Continue inhalers. Smoking cessation was again recommende d. Long-term current use of drug therapy 570413961 Z79.899 Radiculopa thy co-occurrent and due to thoracic intervertebral disc disorder 3941389721 03022 M51.15 I will refer gabapentin and muscle relaxants if UDS is neg. Previous MRI has revealed severe lumbar DDD. Tobacco de pendence caused by cigarettes 1678419298 5771917 F17.210 Smoking cessation encouraged . [id number] [place] [address] 03/20/2025 15:31:13 03/20/2025 16:37:11 Myocardial infarction 32418193 I21.4 819835 Stop smoking, continue all meds, keep f/up plan with Cardiology , complete Cardiac rehab when cleared to begin. Heart failure 60917183 I 50.9 7026623885 DASH diet, smoking cessation encouraged . Tobacco de pendence caused by cigarettes 7753079965 1504437 F17.210 Smoking cessation encouraged . Gastro-eso phageal reflux disease with esophagitis 474392837 K21.00 Refill PPI today. Moderate m ajor depression, single episode 91787699 F32.1 Restart Paxil and Remeron. Chronic ob structive pulmonary disease 72563465 J44.9 Continue inhalers. Smoking cessation was again recommende d. Health Concerns Section Related Observation LastModified by Organization Detai ls LastModified Time None Recorded Concern Status LastModified by Organization Details LastModified Time None Recorded Advance Directives Directive N: Payers Insurance Date Sequence Insurance Name Policy Number Policy Martínez Covered Member ID Martínez Member ID Guarantor Name 03/17/2025 [place] [id number] [employer] (MEDICAID) Cale Loera [id number] [facility] Loera 04/09/2025 1 [facility] [facility] (MEDICAID HMO) Cale Swankins [id number] Yennylidavon Loera 01/13/2023 1 *SELF PAY* Co rnelious Loera Notes Date Note Type Note Provider Name and Address Organization Details Recorded Time 4 text/html Anxiety/DepressionReported by PatientHPIFor severity, patient reportsinterference with activities of daily livingandinterference with sleepbut reportsdenies suicidal ideations. For context, patient reportsbereavement,tobacco use, anddrug use( of his spouse). For associated symptoms, patient reportsdepression,lonelines s,grieving,insomnia,sleep disturbances, anddespair/hopelessnessbut reportsdenies homicidal ideations. For duration, patient reportssymptoms lasting: (___)andchronic. For onset/timing, patient reportsgradual. For modifying factors, patient reportssocial support. Chronic Pain Follow-upReported by PatientHPIFor adl improvements, patient reportsmood affectedandsleep patterns disturbedbut reportsphysically functioningandable to maintain relationships. For adverse reactions, patient reportsmental cloudinessbut reportsno nausea,no vomiting,no constipation,no itching,no sweating,no fatigue,no drowsiness, andno sexual dysfunction. For aberrant behavior, patient reportsabusing etoh/illicit drugs. For location, patient reportslocation: (lumbar spine)andradiating (bilateral lower extremities). For quality, patient reportsaching,tingling, andburning. For pain severity, patient reportsaverage pain 5/10,worst pain 9/10, andfrequency:. For alleviating factors, patient reportsheat therapy,cold therapy, andnsaids. For aggravating factors, patient reportsmovementandstress. COPDReported by PatientHPI:For aggravating factors, patient reportsworse with cigarette smokingandworse with exertion. For associated symptoms, patient reportsdyspnea during exertion,decrease in exercise capacity,weight loss, anddepression. For onset/timing, patient reportsintermittent. For duration, patient reportschronic,has noted for years, andattacks are infrequent. For severity, patient reportsmild. For context, patient reportscigarette smoking. For alleviating factors, patient reportsrelieved with bronchodilator.ROS as noted in the HPI Cristina Wright, [employer] [address] [place], [address], [facility] [email or web address] 11/07/2023 17:46:05 4 text/html Anxiety/DepressionReported by PatientHPIFor severity, patient reportsinterference with activities of daily livingandinterference with sleepbut reportsdenies suicidal ideations,symptoms improved, and___ previous episodes. For context, patient reportsbereavement,tobacco use, anddrug use( of his spouse). For associated symptoms, patient reportsweight gain (___ lbs),depression,loneliness, grieving,insomnia,sleep disturbances, anddespair/hopelessnessbut reportsdenies homicidal ideations. For duration, patient reportssymptoms lasting: (___)andchronic. For onset/timing, patient reportsgradual. For modifying factors, patient reportssocial supportandselective serotonin reuptake inhibitor (ssri).States his mood and sleep are improved - is eating better - tolerating meds well. Chronic Pain Follow-upReported by PatientHPIFor adl improvements, patient reportsmood affectedandsleep patterns disturbedbut reportsphysically functioningandable to maintain relationships. For adverse reactions, patient reportsmental cloudinessbut reportsno nausea,no vomiting,no constipation,no itching,no sweating,no fatigue,no drowsiness, andno sexual dysfunction. For location, patient reportslocation: (lumbar spine)andradiating (bilateral lower extremities). For quality, patient reportsaching,tingling, andburning. For pain severity, patient reportsaverage pain 5/10,worst pain 9/10, andfrequency:. For alleviating factors, patient reportsheat therapy,cold therapy, andnsaids. For aggravating factors, patient reportsmovementandstress. COPDReported by PatientHPI:For aggravating factors, patient reportsworse with cigarette smokingandworse with exertion. For associated symptoms, patient reportsdyspnea during exertion,decrease in exercise capacity, anddepression. For onset/timing, patient reportsintermittent. For duration, patient reportschronic,has noted for years, andattacks are infrequent. For severity, patient reportsmild. For context, patient reportscigarette smoking. For alleviating factors, patient reportsrelieved with bronchodilator.ROS as noted in the HPI Cristina Wright, [employer] [address] [facility], [place], [address], [facility] [email or web address] 01/18/2024 13:07:50 4 text/html Anxiety/DepressionReported by PatientHPIFor severity, patient reportsinterference with activities of daily livingandinterference with sleepbut reportsdenies suicidal ideations,symptoms improved, and___ previous episodes. For context, patient reportsbereavementandtobacc o use( of his spouse). For associated symptoms, patient reportsweight gain (___ lbs),depression, andgrievingbut reportsdenies homicidal ideations. For duration, patient reportssymptoms lasting: (___)andchronic. For onset/timing, patient reportsgradual. For modifying factors, patient reportssocial supportandselective serotonin reuptake inhibitor (ssri).States his mood and sleep are improved - is eating better - tolerating meds well. Chronic Pain Follow-upReported by PatientHPIFor adl improvements, patient reportsmood affectedandsleep patterns disturbedbut reportsphysically functioningandable to maintain relationships. For adverse reactions, patient reportsmental cloudinessbut reportsno nausea,no vomiting,no constipation,no itching,no sweating,no fatigue,no drowsiness, andno sexual dysfunction. For location, patient reportslocation: (lumbar spine)andradiating (bilateral lower extremities). For quality, patient reportsaching,tingling, andburning. For pain severity, patient reportsaverage pain 5/10,worst pain 9/10, andfrequency:. For alleviating factors, patient reportsheat therapy,cold therapy, andnsaids. For aggravating factors, patient reportsmovementandstress. COPDReported by PatientHPI:For aggravating factors, patient reportsworse with cigarette smokingandworse with exertion. For associated symptoms, patient reportsdyspnea during exertion,decrease in exercise capacity, anddepression. For onset/timing, patient reportsintermittent. For duration, patient reportschronic,has noted for years, andattacks are infrequent. For severity, patient reportsmild. For context, patient reportscigarette smoking. For alleviating factors, patient reportsrelieved with bronchodilator.ROS as noted in the HPI Cristina Wright APRN [address] [place], [address], [facility] [email or web address] 04/09/2024 18:55:13 5 text/html Anxiety/DepressionReported by PatientHPIFor severity, patient reportsinterference with activities of daily livingandinterference with sleepbut reportsdenies suicidal ideations,symptoms improved, and___ previous episodes. For context, patient reportsbereavementandtobacc o use( of his spouse). For associated symptoms, patient reportsweight gain (___ lbs),depression, andgrievingbut reportsdenies homicidal ideations. For duration, patient reportssymptoms lasting: (___)andchronic. For onset/timing, patient reportsgradual. For modifying factors, patient reportssocial supportandselective serotonin reuptake inhibitor (ssri). Chronic Pain Follow-upReported by PatientHPIFor adl improvements, patient reportsmood affectedandsleep patterns disturbedbut reportsphysically functioningandable to maintain relationships. For adverse reactions, patient reportsmental cloudinessbut reportsno nausea,no vomiting,no constipation,no itching,no sweating,no fatigue,no drowsiness, andno sexual dysfunction. For location, patient reportslocation: (lumbar spine)andradiating (bilateral lower extremities). For quality, patient reportsaching,tingling, andburning. For pain severity, patient reportsaverage pain 5/10,worst pain 9/10, andfrequency:. For alleviating factors, patient reportsheat therapy,cold therapy, andnsaids. For aggravating factors, patient reportsmovementandstress. COPDReported by PatientHPI:For aggravating factors, patient reportsworse with cigarette smokingandworse with exertion. For associated symptoms, patient reportsdyspnea during exertion,decrease in exercise capacity, anddepression. For onset/timing, patient reportsintermittent. For duration, patient reportschronic,has noted for years, andattacks are infrequent. For severity, patient reportsmild. For context, patient reportscigarette smoking. For alleviating factors, patient reportsrelieved with bronchodilator.ROS as noted in the HPI Cristina Wright APRN [address] [place] [address], [address], [email or web address] 12/04/2024 21:32:55 5 text/html Hospitalization Contact RecordReported by PatientHospitalization Contact RecordFor follow up, patient [facility]sh[facility]anddate of discharge: (please enter in format 'mm/dd/yyyy') (03/09/2025).Pt was admitted to [facility] due to late presentation STEMI with new onset CHF with reduced EF noted on echo. He underwent LHC with multiple RAJESH stents placed. He is on DAPT now, wearing a life vest. He did keep his cardio f/up appt post d/c and that note was reviewed. His gabapentin has been stopped. He is demanding phenergan today although he denies N/V and is adamant that zofran was not helpful in the hospital and only phenergan will help. He has Hx SHANNEN. He is still smoking, was prescribed chantix and nicoderm at hospital d/c but admits he has not picked those up yet. I attempted to have a significant discussion today with him regarding seriousness of this diagnosis and necessity to stop smoking.ROS as noted in the HPI Cristina Wright APRN [address] [place], [address], [email or web address] 04/08/2025 16:26:20
--- NOTE | 2025-06-11 19:15 | [facility].EDCP ---
Discharge Plan Disposition Patient Disposition: Home, Self-Care Prescriptions Prescriptions: New doxycycline hyclate 100 mg capsule 100 mg PO BID 6 Days Qty: 12 0RF No Action paroxetine HCl 10 mg tablet 10 mg PO DAILY Patient Comments: TAKE ONE TABLET BY MOUTH EVERY DAY FOR depression omeprazole 20 mg capsule,delayed release(DR/EC) 20 mg PO DAILY albuterol sulfate [Ventolin HFA] 90 mcg/actuation HFA aerosol inhaler 2 puff INHALATION Q4HP PRN (Reason: Shortness Of Breath) budesonide-formoterol [Symbicort] 160-4.5 mcg/actuation HFA aerosol inhaler 2 puff INHALATION BID Patient Comments: inhale 2 puffs by inhalation route 2 times per day in the morning and evening and rinse mouth after use atorvastatin 40 mg Tablet 80 mg PO HS 30 Days Qty: 60 0RF aspirin 81 mg Tablet,Delayed Release (Dr/Ec) 81 mg PO DAILY 30 Days Qty: 30 0RF metoprolol succinate 25 mg Tablet Extended Release 24 Hr 25 mg PO DAILY 30 Days Qty: 30 0RF prasugrel HCl 10 mg Tablet 10 mg PO DAILY 30 Days Qty: 30 0RF Referrals Follow up/Referrals: Cristina Wright [Primary Care Provider, Medical] - See instructions Activity Restrictions/Add. Instructions Additional Instructions/Restrictions: You likely have a mild pneumonia based on your CT scan today. I do encourage you to take the antibiotics as prescribed. I do encourage you to follow-up with your bolt cutter on as scheduled or sooner if needed. If you develop any new or worsening symptoms, such as worsening shortness of breath, chest pain, difficulty breathing, fever, return to the emergency department for evaluation. Clinical Impressions Clinical Impression: Pneumonia, Shortness of breath Print Language Print Language: Guamanian Discharge ED Provider: Jose Ramirez [facility] <ALBA Tim - Last Filed: 06/11/25 22:00> General Chief Complaint: Shortness of Breath/Dyspnea Stated Complaint: stents 4 mo ago, SOA, tired all the time Time Seen by Provider: 06/11/25 19:08 Mode of Arrival: Ambulatory Source of Information: Patient Limitations: No Limitations Description of Symptoms (Recalled from ER Triage Doc. by RN): patient presents to ED for shortness of breath. patient stated he just had 4 stents placed 4 months ago and an external defibralator placed as well. History of Present Illness HPI narrative: 55-year-old male presents the emergency department with dyspnea, worsening with exertion, and orthopnea that has been going on for the last 2 days. Patient states he was outside [employer] , Wednesday, when he experienced dyspnea, improved, severe orthopnea was noted on Wednesday night, dyspnea at rest was noted yesterday, dyspnea on exertion noted today. Patient tells me I could not walk from the car to the lobby without having to catch my breath. Patient denies any fever or chills, denies any overt chest pain, denies any abdominal pain, does admit to nausea, denies any vomiting, no constipation no diarrhea no urinary symptomatology, no recent sick contacts or illnesses, patient is a current everyday smoker but is trying to quit, denies any alcohol use, denies any illicit drug use. Patient has significant cardiac history, status post 4 stent placements, with dual antiplatelet therapy, and anterior IN in March 2025, currently on a LifeVest, HFrEF with last ejection fraction 15 to 20%, GERD, COPD, hyperlipidemia. Initial triage vitals are unremarkable. Please note that above description of symptoms, in this electronic medical record under categorization of recalled from ER triage doctor by RN are reflective of an initial nursing assessment, however, is not reflective of my full history and physical exam that was personally taken and clarified. Consequentially, this preceding description of symptoms, which may include the patient's categorized chief complaint in the EMR, do not reflect my personal clinical impression, and the ultimate description of history of present illness and patient stated complaints should be deferred to this section of the note. Unless stated otherwise or congruent with this section of the note, additional signs, symptoms, or incongruence should be interpreted as inaccurate with my clinical impression. MD complaint: other Onset (ago): day(s) Activity at onset: during rest, during exertion and light activity Related Data Home Medications ?Medication ?Instructions ?Recorded ?Confirmed albuterol sulfate 90 mcg/actuation 2 puff inhalation Q4HP PRN 03/12/25 05/31/25 aerosol inhaler (Ventolin HFA) Shortness Of Breath budesonide-formoterol HFA 160 2 puff inhalation BID 03/12/25 05/31/25 mcg-4.5 mcg/actuation aerosol inhaler (Symbicort) omeprazole 20 mg capsule,delayed 20 mg PO DAILY 03/12/25 05/31/25 release paroxetine HCl 10 mg tablet 10 mg PO DAILY 03/12/25 05/31/25 Previous Rx's ?Medication ?Instructions ?Recorded aspirin 81 mg tablet,delayed 81 mg PO DAILY 30 days #30 tabs 03/15/25 release atorvastatin 40 mg tablet 80 mg (2 x 40 mg) PO HS 30 days 03/15/25 #60 tabs metoprolol succinate 25 mg 25 mg PO DAILY 30 days #30 tabs 03/15/25 tablet,extended release 24 hr prasugrel HCl 10 mg tablet 10 mg PO DAILY 30 days #30 tabs 03/15/25 doxycycline hyclate 100 mg capsule 100 mg PO BID 6 days #12 caps 06/11/25 Allergies Allergy/AdvReac Type Severity Reaction Status Date / Time No Known Allergies Allergy Verified 05/31/25 13:47 [facility] <ALBA Tim - Last Filed: 06/11/25 22:00> [facility] Disclaimer: The information contained in this section may have been updated after the patient was seen, as this information can be updated by other users. Medical History GERD (gastroesophageal reflux disease) Arthritis Hiatal hernia COPD (chronic obstructive pulmonary disease) Surgical History History of removal of cyst History of banding of hemorrhoid Family History Other Family history of cancer Family history of coronary artery disease Social History Smoking Status: Current some day smoker tobacco type: cigarettes packs per day: 1 second hand exposure: Yes alcohol intake: former current occupational status: employed Travel in the last 8 weeks?: None Have you lived/traveled outside US in past 30 days?: No Contact w/someone who lives/traveled outside US past 30 days?: No Exposure to someone with infectious disease in past 14 days?: No Do you have a fever (greater than 100.4 F or 38 C)?: No Have you tested positive for COVID-19?: No Exposed to someone with COVID-19 in past 14 days?: No Do you have a sore throat?: No Do you have a cough?: No Do you have any weakness?: No Do you have any diarrhea?: No Are you experiencing any unusual bleeding?: No Do you have any muscle aches/pain?: No Do you have any abdominal pain?: No Are you experiencing loss of taste or smell?: No Other Medical History Have you received the Flu Vaccine for this season: No Have you received the Pneumonia Vaccine: No <ALBA Tim - Last Filed: 06/11/25 22:00> ROS Obtained: Yes All systems reviewed & no additional complaints except as documented Physical Exam <ALBA Tim - Last Filed: 06/11/25 22:00> General General appearance: alert and in no apparent distress Head Head exam: atraumatic and normocephalic Eye Eye exam: Present normal appearance, PERRL and EOMI Neck Neck exam: Present full ROM; Absent meningismus Chest Chest inspection: Present normal inspection Respiratory Respiratory exam: Present normal lung sounds bilaterally; Absent respiratory distress, wheezes, stridor, accessory muscle use or prolonged expiratory phase Cardiovascular Cardiovascular exam: Present normal rhythm and other (Pulses equal and symmetric in bilateral upper and lower extremities) Abdominal Exam Abdominal exam: Absent distention, tenderness, guarding or rebound Extremities Exam Extremities exam: Absent edema Neurological Exam Neurological exam: Present alert Psychiatric Psychiatric exam: Present normal affect Skin Skin exam: Present warm and dry HEART Score <ALBA Tim - Last Filed: 06/11/25 22:00> HEART Score HEART Score assessment performed?: Yes HEART Score: 4 <Jose Ramirez MD - Last Filed: 06/11/25 23:16> HEART Score History (anamnesis): Moderately suspicious ECG: Normal Age: 45-65 years Risk factors: Atherosclerosis history Troponin: </= normal limit HEART Score: 4 Critical [facility] <ALBA Tim - Last Filed: 06/11/25 22:00> Critical Care Time Critical Care Time: No Medical Decision Making <ALBA Tim - Last Filed: 06/11/25 22:00> Medical Records Medical records reviewed: Yes I reviewed the patient's medical records. Sherwin Inquiry Pt receiving controlled substance: No Sherwin was queried for this patient: No Vital Signs Vital Signs: 06/11/25 18:53 06/11/25 19:00 06/11/25 19:18 Temperature 98.2 F Temperature Source Oral Pulse Rate 81 Pulse Rate [Right Radial] 88 Respiratory Rate 17 16 Blood Pressure 120/70 Blood Pressure [Right Arm] 119/75 Blood Pressure Mean Blood Pressure Mean [Right Arm] 89 Blood Pressure Source Automatic Cuff Blood Pressure Source [Right Arm] Automatic Cuff Blood Pressure Position Sitting Blood Pressure Position [Right Arm] Sitting 02 Sat by Pulse Oximetry 94 L 97 97 Oxygen Delivery Method Room Air Room Air Room Air 06/11/25 20:47 06/11/25 21:08 06/11/25 21:30 Temperature Temperature Source Pulse Rate 83 83 76 Pulse Rate [Right Radial] Respiratory Rate 18 15 26 H Blood Pressure 120/78 127/88 125/86 Blood Pressure [Right Arm] Blood Pressure Mean 89 102 99 Blood Pressure Mean [Right Arm] Blood Pressure Source Blood Pressure Source [Right Arm] Blood Pressure Position Blood Pressure Position [Right Arm] 02 Sat by Pulse Oximetry 97 99 98 Oxygen Delivery Method 06/11/25 22:00 06/11/25 22:30 06/11/25 22:44 Temperature Temperature Source Pulse Rate 84 79 85 Pulse Rate [Right Radial] Respiratory Rate 26 H 24 18 Blood Pressure 129/87 116/82 116/82 Blood Pressure [Right Arm] Blood Pressure Mean 101 93 Blood Pressure Mean [Right Arm] Blood Pressure Source Automatic Cuff Blood Pressure Source [Right Arm] Blood Pressure Position Sitting Blood Pressure Position [Right Arm] 02 Sat by Pulse Oximetry 98 96 98 Oxygen Delivery Method Room Air Lab Data Lab results reviewed: Yes I reviewed the patient's lab results. Labs: Lab Results 06/11/25 19:30: WBC 7.7, RBC 4.74, Hgb 14.0 L, Hct 42.7, MCV 90.1, MCH 29.5, MCHC 32.8, RDW 14.0, Plt Count 247, MPV 10.1, Neut % (Auto) 42.7, Lymph % (Auto) 42.1, [place] % (Auto) 9.4 H, Eos % (Auto) 5.0, Baso % (Auto) 0.4, Neut # (Auto) 3.3, Lymph # (Auto) 3.2, [place] # (Auto) 0.7, Eos # (Auto) 0.4, Baso # (Auto) 0.0, Sodium 139, Potassium 4.6, Chloride 107, Carbon Dioxide 25, Anion Gap 11.6, BUN 12, Creatinine 0.90, Estimated Creat Clear 87, Estimated GFR 87, Est GFR ( Amer) 105, Glucose 105 H, Calcium 9.4, Magnesium 2.0, Total Bilirubin 0.7, AST 22, ALT 16, Alkaline Phosphatase 76, Total Creatine Kinase 66, Troponin I 0.02, NT-Pro-B Natriuret Pep 7260 H, Total Protein 6.3, Albumin 3.8, Globulin 2.5, Albumin/Globulin Ratio 1.5, Lipase 110, TSH 3.51, Thyroxine (T4) 7.2 06/11/25 22:03: Troponin I 0.02 06/11/25 19:30 06/11/25 19:30 Response Orders (Tests/Meds): ED MEDICATIONS Discontinued Medications Generic Name Dose Route Start Last Admin Trade Name Freq PRN Reason Stop Dose Admin Doxycycline Hyclate 100 mg 06/11/25 23:00 Doxycycline Hycl 100 Mg Tablet PO 06/11/25 23:01 ONCE ONE Iopamidol 70 ml 06/11/25 20:16 06/11/25 20:17 Iopamidol-370 (76%);100ml Bottle IV 06/11/25 20:17 70 ml ONCE ONE Administration Sodium Chloride 50 ml 06/11/25 20:16 06/11/25 20:17 0.9 % Sodium Chloride 50 Ml Vial IV 06/11/25 20:17 50 ml ONCE ONE Administration Sodium Chloride 10 ml 06/11/25 20:16 06/11/25 20:17 Sodium Chloride 0.9% 10ml Syr (Rad Only) IV 06/11/25 20:17 10 ml ONCE ONE Administration ORDERS Category Date Time Status CT angio chest PE protocol Stat Cat Scan 06/11/25 19:22 Completed XR chest portable Stat Exams 06/11/25 19:22 Completed CK [Creatine Kinase] Stat Lab 06/11/25 19:30 Completed Complete Blood Count Auto Diff Stat Lab 06/11/25 19:30 Completed Comprehensive Metabolic Panel Stat Lab 06/11/25 19:30 Completed Lipase Stat Lab 06/11/25 19:30 Completed Magnesium Stat Lab 06/11/25 19:30 Completed NT Pro Brain Natriuretic Pep. Stat Lab 06/11/25 19:30 Completed T4 (Thyroxine) Stat Lab 06/11/25 19:30 Completed TSH [Thyroid Stimulating Hormone] Stat Lab 06/11/25 19:30 Completed Troponin I Q3H Lab 06/11/25 22:03 Completed Troponin I Q3H Lab 06/12/25 01:30 Ordered Troponin I Stat Lab 06/11/25 19:30 Completed MDM Narrative Medical Decision Narrative: 55-year-old male presents the emergency department with dyspnea and dyspnea on exertion, for 2 days, differential diagnose include but not limited to cardiac arrhythmia, electrolyte disturbance, ACS, CHF/ablation, COPD exacerbation, pneumonia, PE, pneumothorax, thyrotoxicosis, panic attack, anxiety reaction. Will obtain basic laboratory studies, EKG, CK level, lipase level magnesium level proBNP T4 TSH, troponin, CXR, CTA chest without contrast PE protocol. CMP unremarkable Troponin is 0.02 initially, proBNP is elevated at 7260, T4 is within normal limits CBC unremarkable TSH within normal limits I discussed this patient's case with the attending physician Dr. Ramirez at shift change, he will be assuming remainder the patient's care/workup disposition is pending CTA chest radiology report and repeat troponin, possible admission versus discharge with very close follow-up. <Jose Ramirez MD - Last Filed: 06/11/25 23:16> Vital Signs Vital Signs: 06/11/25 18:53 06/11/25 19:00 06/11/25 19:18 Temperature 98.2 F Temperature Source Oral Pulse Rate 81 Pulse Rate [Right Radial] 88 Respiratory Rate 17 16 Blood Pressure 120/70 Blood Pressure [Right Arm] 119/75 Blood Pressure Mean Blood Pressure Mean [Right Arm] 89 Blood Pressure Source Automatic Cuff Blood Pressure Source [Right Arm] Automatic Cuff Blood Pressure Position Sitting Blood Pressure Position [Right Arm] Sitting 02 Sat by Pulse Oximetry 94 L 97 97 Oxygen Delivery Method Room Air Room Air Room Air 06/11/25 20:47 06/11/25 21:08 06/11/25 21:30 Temperature Temperature Source Pulse Rate 83 83 76 Pulse Rate [Right Radial] Respiratory Rate 18 15 26 H Blood Pressure 120/78 127/88 125/86 Blood Pressure [Right Arm] Blood Pressure Mean 89 102 99 Blood Pressure Mean [Right Arm] Blood Pressure Source Blood Pressure Source [Right Arm] Blood Pressure Position Blood Pressure Position [Right Arm] 02 Sat by Pulse Oximetry 97 99 98 Oxygen Delivery Method 06/11/25 22:00 06/11/25 22:30 06/11/25 22:44 Temperature Temperature Source Pulse Rate 84 79 85 Pulse Rate [Right Radial] Respiratory Rate 26 H 24 18 Blood Pressure 129/87 116/82 116/82 Blood Pressure [Right Arm] Blood Pressure Mean 101 93 Blood Pressure Mean [Right Arm] Blood Pressure Source Automatic Cuff Blood Pressure Source [Right Arm] Blood Pressure Position Sitting Blood Pressure Position [Right Arm] 02 Sat by Pulse Oximetry 98 96 98 Oxygen Delivery Method Room Air Lab Data Labs: Lab Results 06/11/25 19:30: WBC 7.7, RBC 4.74, Hgb 14.0 L, Hct 42.7, MCV 90.1, MCH 29.5, MCHC 32.8, RDW 14.0, Plt Count 247, MPV 10.1, Neut % (Auto) 42.7, Lymph % (Auto) 42.1, [place] % (Auto) 9.4 H, Eos % (Auto) 5.0, Baso % (Auto) 0.4, Neut # (Auto) 3.3, Lymph # (Auto) 3.2, [place] # (Auto) 0.7, Eos # (Auto) 0.4, Baso # (Auto) 0.0, Sodium 139, Potassium 4.6, Chloride 107, Carbon Dioxide 25, Anion Gap 11.6, BUN 12, Creatinine 0.90, Estimated Creat Clear 87, Estimated GFR 87, Est GFR ( Amer) 105, Glucose 105 H, Calcium 9.4, Magnesium 2.0, Total Bilirubin 0.7, AST 22, ALT 16, Alkaline Phosphatase 76, Total Creatine Kinase 66, Troponin I 0.02, NT-Pro-B Natriuret Pep 7260 H, Total Protein 6.3, Albumin 3.8, Globulin 2.5, Albumin/Globulin Ratio 1.5, Lipase 110, TSH 3.51, Thyroxine (T4) 7.2 06/11/25 22:03: Troponin I 0.02 Response Orders (Tests/Meds): ED MEDICATIONS Discontinued Medications Generic Name Dose Route Start Last Admin Trade Name Freq PRN Reason Stop Dose Admin Doxycycline Hyclate 100 mg 06/11/25 23:00 Doxycycline Hycl 100 Mg Tablet PO 06/11/25 23:01 ONCE ONE Iopamidol 70 ml 06/11/25 20:16 06/11/25 20:17 Iopamidol-370 (76%);100ml Bottle IV 06/11/25 20:17 70 ml ONCE ONE Administration Sodium Chloride 50 ml 06/11/25 20:16 06/11/25 20:17 0.9 % Sodium Chloride 50 Ml Vial IV 06/11/25 20:17 50 ml ONCE ONE Administration Sodium Chloride 10 ml 06/11/25 20:16 06/11/25 20:17 Sodium Chloride 0.9% 10ml Syr (Rad Only) IV 06/11/25 20:17 10 ml ONCE ONE Administration ORDERS Category Date Time Status CT angio chest PE protocol Stat Cat Scan 06/11/25 19:22 Completed XR chest portable Stat Exams 06/11/25 19:22 Completed CK [Creatine Kinase] Stat Lab 06/11/25 19:30 Completed Complete Blood Count Auto Diff Stat Lab 06/11/25 19:30 Completed Comprehensive Metabolic Panel Stat Lab 06/11/25 19:30 Completed Lipase Stat Lab 06/11/25 19:30 Completed Magnesium Stat Lab 06/11/25 19:30 Completed NT Pro Brain Natriuretic Pep. Stat Lab 06/11/25 19:30 Completed T4 (Thyroxine) Stat Lab 06/11/25 19:30 Completed TSH [Thyroid Stimulating Hormone] Stat Lab 06/11/25 19:30 Completed Troponin I Q3H Lab 06/11/25 22:03 Completed Troponin I Q3H Lab 06/12/25 01:30 Ordered Troponin I Stat Lab 06/11/25 19:30 Completed MDM Narrative Medical Decision Narrative: 55-year-old male presents the emergency department with dyspnea and dyspnea on exertion, for 2 days, differential diagnose include but not limited to cardiac arrhythmia, electrolyte disturbance, ACS, CHF/ablation, COPD exacerbation, pneumonia, PE, pneumothorax, thyrotoxicosis, panic attack, anxiety reaction. Will obtain basic laboratory studies, EKG, CK level, lipase level magnesium level proBNP T4 TSH, troponin, CXR, CTA chest without contrast PE protocol. CMP unremarkable Troponin is 0.02 initially, proBNP is elevated at 7260, T4 is within normal limits CBC unremarkable TSH within normal limits I discussed this patient's case with the attending physician Dr. Ramirez at shift change, he will be assuming remainder the patient's care/workup disposition is pending CTA chest radiology report and repeat troponin, possible admission versus discharge with very close follow-up. Jose Ramirez MD: I was consulted by the JONI, and we discussed the complexity of the problems being addressed. I approve the treatment and management plan for this patient's care in the emergency department, thus performing a substantive portion of the medical decision making. At the time of handoff, patient's CT PE is pending and repeat troponin is pending. CT imaging was interpreted by me personally. No evidence of pulmonary embolism. No aortic dissection. Patient may have a small amount of pleural effusion at the right base. Per radiology, patient has mild bronchial wall thickening bilaterally. Suspicious for infectious airway disease. Mild bilateral hilar adenopathy, presumed reactive. Patient's repeat troponin was stable at 0.02. On reassessment, patient stated that he had complete resolution of his symptoms and is no longer short of breath. He states that his vital signs are better than they ever have been before. It is noted that patient's NT proBNP is elevated at 7260, which is fairly elevated from his baseline. Given patient is not hypoxic or short of breath and does not appear volume overloaded on x-ray, CT imaging or physical exam, no initiation of diuretics is indicated. Patient was offered admission given his heart score of 4, however he does not want to pursue this at this time and is reasonable to discharge given he has close follow-up. I did encourage patient to follow-up with his bolt cutter on as scheduled and to return to the emergency department he had any new or worsening symptoms. All questions were answered. Will give patient dose of doxycycline 100 mg orally here for possible pneumonia on patient CT imaging and discharged with 6-day prescription to complete a 7-day course. He demonstrated understanding and was in agreement this plan. He was then discharged from the emergency department in stable condition.
--- NOTE | 2025-06-11 19:22 | XR_ITS ---
PROCEDURE INFORMATION: Exam: XR Chest Exam date and time: 06/11/2025 8:11 PM Age: 55 years old Clinical indication: Other: Dyspnea and dyspnea on exertion orthopnea TECHNIQUE: Imaging protocol: Radiologic exam of the chest. Views: 1 view. COMPARISON: CT ANGIO CHEST PE PROTOCOL 03/13/2025 2:20 PM FINDINGS: Tubes, catheters and devices: Multiple monitoring devices project across chest. Lungs: Unremarkable. No consolidation. Pleural spaces: Unremarkable. No pleural effusion. No pneumothorax. Heart/Mediastinum: Unremarkable. No cardiomegaly. Bones/joints: Unremarkable. IMPRESSION: No acute findings.
--- NOTE | 2025-06-11 19:22 | CT_ITS ---
PROCEDURE INFORMATION: Exam: CTA Chest With Contrast Exam date and time: 06/11/2025 8:18 PM Age: 55 years old Clinical indication: Other: Shortness of air, dyspnea on exertion TECHNIQUE: Imaging protocol: Computed tomographic angiography of the chest with contrast. Exam focused on the arteries. 3D rendering (Not supervised by radiologist): MIP and/or 3D reconstructed images were created by the technologist. Radiation optimization: All CT scans at this facility use at least one of these dose optimization techniques: automated exposure control; mA and/or kV adjustment per patient size (includes targeted exams where dose is matched to clinical indication); or iterative reconstruction. Contrast material: ISO 370; Contrast volume: 70 ml; Contrast route: INTRAVENOUS (IV); COMPARISON: CT ANGIO CHEST PE PROTOCOL 03/13/2025 2:20 PM FINDINGS: Limitations: Beam hardening artifact arising from the multiple external monitoring devices obscures adjacent structures. Pulmonary arteries: Normal. No pulmonary emboli. Aorta: Unremarkable. No aortic aneurysm. No aortic dissection. Lungs: Mild bronchial wall thickening bilaterally. Pleural spaces: Unremarkable. No pneumothorax. No pleural effusion. Heart: Unremarkable. No cardiomegaly. No pericardial effusion. Coronary arteries: Mild calcification of the coronary arteries. Lymph nodes: Mild bilateral hilar adenopathy. Bones/joints: Unremarkable. No acute fracture. Soft tissues: Unremarkable. IMPRESSION: 1. Mild bronchial wall thickening bilaterally. Suspicious for infectious airway disease. 2. Mild bilateral hilar adenopathy. Presumed reactive.
--- NOTE | 2025-06-11 19:34 | ECG_ITS ---
APPROVED REPORT Exam: Resting ECG HR:82 bpm ECG Measurements Heart Rate 82 AXES VT 151 P 68 QRSd 87 QRS -80 QT 383 T 110 QTc 421 Conclusion SINUS RHYTHM LEFT ANTERIOR FASCICULAR BLOCK [QRS AXIS <= -45, QR IN I, RS IN II] ANTEROSEPTAL MYOCARDIAL INFARCTION , OF INDETERMINATE AGE [40+ ms Q WAVE IN V1-V4] ABNORMAL ECG UNCONFIRMED REPORT Electronically signed by : JOSE SILVEIRA, 06/12/2025 04:43:51
[2025-06-11 19:45] LABS: Alanine Aminotransferase 16 U/L (12-78); Albumin Level 3.8 g/dl (3.5-5.0); Albumin/Globulin Ratio 1.5 (1.1-1.8); Alkaline Phosphatase 76 U/L (38-126); Anion Gap 11.6 mEq/L (5-15); Aspartate Amino Transferase 22 U/L (17-59); Bilirubin,Total 0.7 mg/dl (0.2-1.3); Blood Urea Nitrogen 12 mg/dl (9-20); Calcium 9.4 mg/dl (8.4-10.2); Carbon Dioxide 25 mmol/L (22.0-30.0); Chloride 107 mmol/L (98-107); Creatine Kinase 66 U/L (55-170); Creatinine Clearance Estimated 87 mL/min (50-200); Creatinine,Serum 0.90 mg/dl (0.66-1.25); Estimated Glomerular Filt Rate 87 ml/min (>60); GFR (African American) 105 ML/MIN (>60); Globulin 2.5 g/dL (1.3-3.2); Glucose 105 mg/dl (74-100); Hematocrit 42.7 % (42.0-52.0); Hemoglobin 14.0 g/dL (14.1-18.0); Immature Granulocytes % 0.4 %; Lipase 110 U/L (23-300); Magnesium 2.0 mg/dl (1.6-2.3); Mean Corpuscular HGB Conc 32.8 g/dL (31.8-35.4); Mean Corpuscular Hemoglobin 29.5 pg (27.0-31.2); Mean Corpuscular Volume 90.1 fl (80-94); Nucleated Red Blood Cells % 0 %; Platelet Count 247 K/mm3 (142-424); Potassium 4.6 mmoL/L (3.5-5.1); Red Blood Count 4.74 M/mm3 (4.60-6.20); Red Cell Distribution Width-SD 46.5 fL; Sodium 139 mmol/L (136-145); Total Protein,Serum 6.3 g/dl (6.3-8.2); White Blood Count 7.7 K/mm3 (4.8-10.8)
[2025-06-11 19:57] LABS: NT Pro Brain Natriuretic Pep. 7260 pg/mL (0-125); Troponin I 0.02 ng/ml (0.00-0.034)
[2025-06-11 20:02] LABS: T4 (Thyroxine) 7.2 ug/dl (5.53-11.0)
[2025-06-11] MEDS: IOPAMIDOL-370 (76%);100ML BOTTLE 70 ML IV (20:17)
[2025-06-11] MEDS: 0.9 % SODIUM CHLORIDE 50 ML VIAL IV (20:17)
[2025-06-11] MEDS: SODIUM CHLORIDE 0.9% 10ML SYR (RAD ONLY) 10 ML IV (20:17)
[2025-06-11 20:49] LABS: Thyroid Stimulating Hormone 3.51 uIU/mL (0.465-4.68)
[2025-06-11 22:46] LABS: Troponin I 0.02 ng/ml (0.00-0.034)
--- NOTE | 2025-06-11 22:46 | PC.NURSE ---
Pt upset with time it is taking for work up to be complete States unhook me from all this 5 minutes turns into a hour and a half Notified patient that he was just waiting on one test result that should be complete in the next 5 min. Pt agrees to stay for 5 more minutes
[2025-06-11] MEDS: DOXYCYCLINE HYCL 100 MG TABLET PO (23:11)
== END 2025-06-11 23:15 | disposition home or self-care (01) ==
PROVIDERS: Physician Assistant; Emergency Provider Student in an Organized Health Care Education/Training Program; PCP Nurse Practitioner Family
DX: J18.9 Pneumonia, unspecified organism (principal); R06.02 Shortness of breath; F17.210 Nicotine dependence, cigarettes, uncomplicated; I11.0 Hypertensive heart disease with heart failure; I50.20 Unspecified systolic (congestive) heart failure; J44.9 Chronic obstructive pulmonary disease, unspecified; Z86.79 Personal history of other diseases of the circulatory system; Z95.5 Presence of coronary angioplasty implant and graft
CPT/HCPCS: 71045; 71275; 80053; 82550; 83690; 83735; 83880; 84436; 84443; 84484; 85025; 93005; 99285; Q9967

== ENCOUNTER 2025-06-21 13:46 | Outpatient (CLI) | payer OTHER, SELFPAY ==
--- NOTE | 2025-06-21 13:45 | CA_ITS ---
APPROVED REPORT EXAM: Limited 2D and color flow Echocardiogram Stock Repairer: Allie Ivy RDCS Ht: 5 ft 7 in Wt: 160lbs BSA: 1.84 BP: 109/63 mmHg Indications: HFrEF, CAD M-Mode Dimensions RVDd 0.99 cm (0.9-2.6) LA Diam 4.04 cm (1.9-4.0) LVDd 5.42 cm (3.5-5.7) LVDs 4.78 cm (3.5-5.7) IVSd 0.61 cm (0.6-1.1) PWd 0.61 cm (0.6-1.1) EF (Teich) 25.30% FS 11.80% EDV (Teich) 142.50 mL ESV (Teich) 106.50 mL Other Information Study Quality: Fair Conclusion This is a limited TTE to evaluate for LV systolic function. Limited windows are obtained. The left ventricle is mildly dilated. There is increased LV wall thickness. There is severe global hypokinesis present. LVEF is 20-25%. Electronically signed by : Fawn Haas MD 06/21/2025 17:05:46
--- OUTSIDE RECORDS SUMMARY | 2025-06-21 13:55 | XMS_ITS | Data Portability ---
Author Organization [employer] [facility] Address [address] [place] [address] Assessment No assessment recorded. Plan of Treatment Reminders Order Date Submit Date Provider Last Modified By Organization Details Last Modified Time Details Appointments None recorded. Lab drug screen, urine 2024 025 [facility]), [address] [place], [address], 5 15:07:27 unlisted lab - gabapentin, urine 2024 025 [facility]), [address] [facility], [place], [address], 5 15:07:27 lipid panel, serum 2023 024 [facility], [address], [place], [address], 4 06:50:58 CMP, serum or plasma 2023 024 [facility], [address], [place], [address], 4 06:50:59 RPR (rapid plasma reagin), serum 2023 024 [facility], [address], [place], [address], 4 06:51:03 drug screen, urine 2023 024 [facility], [address], [place], [address], 4 13:47:47 CBC w/ auto diff 2023 024 [facility], [address], [place], [address], 4 06:51:00 PSA, serum or plasma 2023 024 [facility], [address], [place], [address], 4 06:51:02 hepatitis C virus Ab, serum 2023 024 [facility], [address], [place], [address], 4 06:51:01 HIV 1+2 Ab + HIV1 p24 Ag, quantitativ e immunoassay , serum 2023 024 [facility], [address], [place], [address], 4 06:51:01 Referral None recorded. Procedures None recorded. Surgeries None recorded. Imaging None recorded. Medication Orders nitroglycer in 0.4 mg sublingual tablet 2024 025 [facility], [facility] [place], [address], 5 16:13:51 omeprazole 20 mg capsule,del ayed release 2024 025 [facility], [address] [place], [address], 5 16:20:25 ondansetron 8 mg disintegrat ing tablet 2024 025 [facility], [address] [place] [address], [address], 10:42:21 paroxetine 10 mg tablet 2024 025 [facility], [address] [place] [address], [address], 18:06:27 Remeron 30 mg tablet 2024 025 [facility], [address] [place] [address], [address], 18:06:29 ProAir HFA 90 mcg/actuati on aerosol inhaler 2024 025 [facility], [address] [place] [address], [address], 18:06:28 Symbicort 160 mcg-4.5 mcg/actuati on HFA aerosol inhaler 2024 025 [facility], [address] [place] [address], [address], 18:06:26 omeprazole 20 mg capsule,del ayed release 2024 025 [facility], [address] [place] [address], [address], 11:23:59 Remeron 30 mg tablet 2024 025 [facility], [address] [place] [address], [address], 17:34:02 paroxetine 10 mg tablet 2024 025 [facility], [address] [place] [address], [address], 17:34:03 Symbicort 160 mcg-4.5 mcg/actuati on HFA aerosol inhaler 2024 025 [facility], [address] [place] [address], [address], 5 17:34:03 ProAir HFA 90 mcg/actuati on aerosol inhaler 2024 025 [facility], [address] [place] [address], [address], 5 17:34:01 omeprazole 20 mg capsule,del ayed release 2023 024 [facility], [address] [place] [address], [address], 4 17:58:47 Remeron 30 mg tablet 2023 024 [facility], [address] [place] [address], [address], 4 12:16:52 paroxetine 10 mg tablet 2023 024 [facility], [address] [place] [address], [address], 4 12:16:52 Symbicort 160 mcg-4.5 mcg/actuati on HFA aerosol inhaler 2023 024 [facility], [address] [place] [address], [address], 4 12:16:51 ProAir HFA 90 mcg/actuati on aerosol inhaler 2023 024 [facility], [address] [place] [address], [address], 4 12:16:53 cyclobenzap rine 10 mg tablet 2023 024 [facility], [address] [facility], [place], [address], 5 15:47:00 gabapentin 300 mg capsule 2023 024 [facility], [address] [facility], [place], [address], 5 15:47:07 omeprazole 20 mg capsule,del ayed release 2023 024 [place] [facility], [address], [place], [address], 4 11:50:40 Remeron 30 mg tablet 2023 024 [facility]EN[facility], [address], [place], [address], 4 12:34:49 paroxetine 10 mg tablet 2023 024 [facility] [facility], [address], [place], [address], 4 12:34:48 Symbicort 160 mcg-4.5 mcg/actuati on HFA aerosol inhaler 2023 024 [place] [facility], [address], [place], [address], 4 15:28:20 ProAir HFA 90 mcg/actuati on aerosol inhaler 2023 024 [place] [facility], [address], [place], [address], 4 12:34:47 cyclobenzap rine 10 mg tablet 2023 024 [facility], [address], [place], [address], 5 15:47:00 omeprazole 20 mg capsule,del ayed release 2023 024 [place] [facility], [address], [place], [address], 4 17:18:08 Zofran 4 mg tablet 2023 024 hbeckerWilner [facility], [address], [place], [address], 5 14:21:44 Remeron 30 mg tablet 2023 024 [place] [facility], [address], [place], [address], 4 16:01:51 paroxetine 10 mg tablet 2023 024 [facility] [facility], [address], [place], [address], 4 16:01:52 Symbicort 160 mcg-4.5 mcg/actuati on HFA aerosol inhaler 2023 024 [place] [facility], [address], [place], [address], 4 16:01:53 ProAir HFA 90 mcg/actuati on aerosol inhaler 2023 024 [place] [facility], [address], [place], [address], 4 16:01:50 cyclobenzap rine 10 mg tablet 2023 024 anyi [facility], [address], [place], [address], 5 15:47:00 Flonase Allergy Relief 50 mcg/actuati on nasal spray,suspe nsion 2023 024 anyi [facility], [address], [place], [address], 15:46:55 Patient TargetsNo targets recorded. Patient InstructionsNo instructions recorded. Reason for Referral None Reported. Results Created Date Observation Date Name Description Value Unit Range Abnormal Flag Note LastModifiedBy Organization Detail LastModifiedTime 01/18/20 24 01/19/2024 LIPID PANEL , STAND NABILA cholesterol, total 196 mg/dL <200 normal Not Available [facility] [address] [facility], [place], [address], 01/19/2024 11:02:26 01/18/20 24 01/19/2024 LIPID PANEL , STAND NABILA HDL cholesterol 61 mg/dL > or = 40 normal Not Available [facility] [address] [facility], [place], [address], 01/19/2024 11:02:26 01/18/20 24 01/19/2024 LIPID PANEL , STAND NABILA triglyceride s 78 mg/dL <150 normal Not Available [facility] [address] [facility], [place], [address], 01/19/2024 11:02:26 01/18/2001/19/2024 LIPID PANEL , STAND [...] 2061- 2068 (http ://ed ucati on.Qu estDi AmigoCATs. com/f aq/FA Q164) Not Available [facility] [address] [facility], [place], [address], 01/19/2024 11:02:26 01/18/20 24 01/19/2024 LIPID PANEL , STAND NABILA chol/HDLC ratio 3.2 (calc ) <5.0 normal Not Available [facility] [address] [facility] [place], [address], 01/19/2024 11:02:26 01/18/20 24 01/19/2024 LIPID PANEL , STAND NABILA non HDL cholesterol 135 mg/dL _(selvin c) <130 high For patie nts with diabe herminia plus 1 major ASCVD risk facto r, treat ing to a non-H DL-C goal of <100 mg/dL (LDL- C of <70 mg/dL ) is consi dered a thera peuti c optio n. Not Available [facility] [address] [place], [address], 01/19/2024 11:02:26 01/18/20 24 01/19/2024 COMPR EHENS SAM METAB OLIC PANEL glucose 98 mg/dL 65-99 normal Fasti ng refer ence inter sherley Not Available [facility] [address] [facility] [place], [address], 01/19/2024 11:02:27 01/18/20 24 01/19/2024 COMPR EHENS SAM METAB OLIC PANEL urea nitrogen (BUN) 13 mg/dL 7-25 normal Not Available [facility] [address] [facility] [place], [address], 01/19/2024 11:02:27 01/18/20 24 01/19/2024 COMPR EHENS SAM METAB OLIC PANEL creatinine 1.06 mg/dL 0.70-1 .30 normal Not Available [facility] [address] [place], [address], 01/19/2024 11:02:27 01/18/20 24 01/19/2024 COMPR EHENS SAM METAB OLIC PANEL eGFR 83 mL/mi n/1.7 3m2 > or = 60 normal Not Available [facility] [address] [place], [address], 01/19/2024 11:02:27 01/18/20 24 01/19/2024 COMPR EHENS SAM METAB OLIC PANEL BUN/creatini ne ratio SEE NOTE: (calc ) 6-22 Not Repor mauricio: BUN and Creat inine are withi n refer ence range . Not Available [facility] [address] [facility] [place], [address], 01/19/2024 11:02:27 01/18/20 24 01/19/2024 COMPR EHENS SAM METAB OLIC PANEL sodium 137 mmol/ L 135-14 6 normal Not Available [facility] [address] [facility] [place], [address], 01/19/2024 11:02:27 01/18/20 24 01/19/2024 COMPR EHENS SAM METAB OLIC PANEL potassium 4.8 mmol/ L 3.5-5. 3 normal Not Available [facility] [address] [facility] [place], [address], 01/19/2024 11:02:27 01/18/20 24 01/19/2024 COMPR EHENS SAM METAB OLIC PANEL chloride 102 mmol/ L 98-110 normal Not Available [facility] [address] [place], [address], 01/19/2024 11:02:27 01/18/20 24 01/19/2024 COMPR EHENS SAM METAB OLIC PANEL carbon dioxide 28 mmol/ L 20-32 normal Not Available [facility] [address] [facility] [place], [address], 01/19/2024 11:02:27 01/18/20 24 01/19/2024 COMPR EHENS SAM METAB OLIC PANEL calcium 9.4 mg/dL 8.6-10 .3 normal Not Available [facility] [address] [place], [address], 01/19/2024 11:02:27 01/18/20 24 01/19/2024 COMPR EHENS SAM METAB OLIC PANEL protein, total 6.5 g/dL 6.1-8. 1 normal Not Available [facility] [address] [facility] [place] [place], [address], 01/19/2024 11:02:27 01/18/20 24 01/19/2024 COMPR EHENS SAM METAB OLIC PANEL albumin 4.2 g/dL 3.6-5. 1 normal Not Available [facility] [address] [facility] [place], [address], 01/19/2024 11:02:27 01/18/20 24 01/19/2024 COMPR EHENS SAM METAB OLIC PANEL globulin 2.3 g/dL_ (calc ) 1.9-3. 7 normal Not Available [facility] [address] [facility] [place], [address], 01/19/2024 11:02:27 01/18/20 24 01/19/2024 COMPR EHENS SAM METAB OLIC PANEL albumin/glob ulin ratio 1.8 (calc ) 1.0-2. 5 normal Not Available [facility] [address] [place], [address], 01/19/2024 11:02:27 01/18/20 24 01/19/2024 COMPR EHENS SAM METAB OLIC PANEL bilirubin, total 0.5 mg/dL 0.2-1. 2 normal Not Available [facility] [address] [facility] [place], [address], 01/19/2024 11:02:27 01/18/20 24 01/19/2024 COMPR EHENS SAM METAB OLIC PANEL alkaline phosphatase 61 U/L 35-144 normal Not Available [facility] [address] [place], [address], 01/19/2024 11:02:27 01/18/20 24 01/19/2024 COMPR EHENS SAM METAB OLIC PANEL AST 12 U/L 10-35 normal Not Available [facility] [address] [place], [address], 01/19/2024 11:02:27 01/18/20 24 01/19/2024 COMPR EHENS SAM METAB OLIC PANEL ALT 8 U/L 9-46 low Not Available [facility] [address], [place], [address], 01/19/2024 11:02:27 01/18/20 24 01/19/2024 CBC (INCL UDES DIFF/ PLT) white blood cell count 6.6 thous and/u L 3.8-10 .8 normal Not Available [facility] [address] [place], [address], 01/19/2024 06:51:00 01/18/2001/19/2024 CBC (INCL UDES DIFF/ PLT) red blood cell count 5.08 nathan on/uL 4.20-5 .80 normal Not Available [facility] [address], [place], [address], 01/19/2024 06:51:00 01/18/2001/19/2024 CBC (INCL UDES DIFF/ PLT) hemoglobin 14.9 g/dL 13.2-1 7.1 normal Not Available [facility] [address], [place], [address], 01/19/2024 06:51:00 01/18/20 24 01/19/2024 CBC (INCL UDES DIFF/ PLT) hematocrit 44.4 % 38.5-5 0.0 normal Not Available [facility] [address] [facility] [place], [address], 01/19/2024 06:51:00 01/18/2001/19/2024 CBC (INCL UDES DIFF/ PLT) MCV 87.4 fL 80.0-1 00.0 normal Not Available [facility] [address] [place], [address], 01/19/2024 06:51:00 01/18/2001/19/2024 CBC (INCL UDES DIFF/ PLT) MCH 29.3 pg 27.0-3 3.0 normal Not Available [facility] [address] [facility] [place], [address], 01/19/2024 06:51:00 01/18/2001/19/2024 CBC (INCL UDES DIFF/ PLT) MCHC 33.6 g/dL 32.0-3 6.0 normal Not Available [facility] [address] [facility] [place], [address], 01/19/2024 06:51:00 01/18/2001/19/2024 CBC (INCL UDES DIFF/ PLT) RDW 12.9 % 11.0-1 5.0 normal Not Available [facility] [address] [place], [address], 01/19/2024 06:51:00 01/18/2001/19/2024 CBC (INCL UDES DIFF/ PLT) platelet count 286 thous and/u L 140-40 0 normal Not Available [facility] [address] [place], [address], 01/19/2024 06:51:00 01/18/2001/19/2024 CBC (INCL UDES DIFF/ PLT) MPV 9.4 fL 7.5-12 .5 normal Not Available [facility] [address] [facility] [address], [place], [address], 01/19/2024 06:51:00 01/18/20 24 01/19/2024 CBC (INCL UDES DIFF/ PLT) absolute neutrophils 3056 cells /uL 1500-7 800 normal Not Available [facility] [address] [facility], [place], [address], 01/19/2024 06:51:00 01/18/20 24 01/19/2024 CBC (INCL UDES DIFF/ PLT) absolute lymphocytes 2930 cells /uL 850-39 00 normal Not Available [facility] [address] [facility] [address], [place], [address], 01/19/2024 06:51:00 01/18/2001/19/2024 CBC (INCL UDES DIFF/ PLT) absolute monocytes 442 cells /uL 200-95 0 normal Not Available [facility] [address] [facility] [address], [place], [address], 01/19/2024 06:51:00 01/18/2001/19/2024 CBC (INCL UDES DIFF/ PLT) absolute eosinophils 132 cells /uL 15-500 normal Not Available [facility] [address] [facility] [address], [place], [address], 01/19/2024 06:51:00 01/18/20 24 01/19/2024 CBC (INCL UDES DIFF/ PLT) absolute basophils 40 cells /uL 0-200 normal Not Available [facility] [address], [place], [address], 01/19/2024 06:51:00 01/18/2001/19/2024 CBC (INCL UDES DIFF/ PLT) neutrophils 46.3 % normal Not Available [facility] [address] [facility] [address] [facility] [address], [place], [address], 01/19/2024 06:51:00 01/18/20 24 01/19/2024 CBC (INCL UDES DIFF/ PLT) lymphocytes 44.4 % normal Not Available [facility] [address] [place], [address], 01/19/2024 06:51:00 01/18/20 24 01/19/2024 CBC (INCL UDES DIFF/ PLT) monocytes 6.7 % normal Not Available [facility] [address] [place], [address], 01/19/2024 06:51:00 01/18/2001/19/2024 CBC (INCL UDES DIFF/ PLT) eosinophils 2.0 % normal Not Available [facility] [address] [place], [address], 01/19/2024 06:51:00 01/18/20 24 01/19/2024 CBC (INCL UDES DIFF/ PLT) basophils 0.6 % normal Not Available [facility] [address] [place], [address], 01/19/2024 06:51:00 01/18/20 24 01/20/2024 HEPAT ITIS [...] a test for HCV RNA (test code 72094 ) is sugge sted. For addit ional infor carlos n pleas e refer to http: //[facility] stdia gnost ics.c om/fa q/FAQ 22v1 (This link is being provi ded for infor carlos nal/ educa gaye l purpo ses only. ) Not Available [facility] [address] [facility], [place], [address], 01/20/2024 01:24:05 01/18/2001/20/2024 HIV 1/2 ANTIG EN/AN [...] matio n pleas e refer to http: //[facility] [place] stdia gnost ics.c om/fa q/FAQ 106 (This link is being provi ded for infor matio nal/ educa gaye l purpo ses only. ) The perfo rmanc e of this assay has not been clini zi valid ated in patie nts less than 2 years old. Not Available [facility] [address] [facility], [place], [address], 01/20/2024 01:24:06 01/18/2001/19/2024 PSA, TOTAL PSA, total [...] absen ce of disea se. Not Available [facility] [address] [place], [address], 01/19/2024 14:13:36 01/18/20 24 01/19/2024 RPR (DX) W/REF L TITER AND T. PALLI DUM AB, IA RPR (DX) w/refl titer and confirmatory testing NON-RE ACTIVE non-re active normal No labor atory evide nce of syphi lis. If recen t expos ure is suspe cted, submi t a new sampl e in 2-4 weeks . Not Available [facility] [address] [place], [address], 01/19/2024 12:53:08 01/18/20 24 01/19/2024 DRUG MONIT OR, PANEL 1, W/CON F, URINE amphetamines NEGATI VE NG/mL <500 normal Not Available [facility] [address] [facility] [place], [address], 01/19/2024 13:47:47 01/18/20 24 01/19/2024 DRUG MONIT OR, PANEL 1, W/CON F, URINE barbiturates NEGATI VE NG/mL <300 normal Not Available [facility] [address] [place], [address], 01/19/2024 13:47:47 01/18/20 24 01/19/2024 DRUG MONIT OR, PANEL 1, W/CON F, URINE benzodiazepi chikis NEGATI VE NG/mL <100 normal Not Available [facility] [place] [address] [place], [address], 01/19/2024 13:47:47 01/18/20 24 01/19/2024 DRUG MONIT OR, PANEL 1, W/CON F, URINE cocaine metabolite NEGATI VE NG/mL <150 normal Not Available [facility] [place] [address] [place], [address], 01/19/2024 13:47:47 01/18/20 24 01/19/2024 DRUG MONIT OR, PANEL 1, W/CON F, URINE marijuana metabolite NEGATI VE NG/mL <20 normal Not Available [facility] [place] [address] [place], [address], 01/19/2024 13:47:47 01/18/20 24 01/19/2024 DRUG MONIT OR, PANEL 1, W/CON F, URINE methadone metabolite NEGATI VE NG/mL <100 normal Not Available [facility] [place] [address] [place], [address], 01/19/2024 13:47:47 01/18/20 24 01/19/2024 DRUG MONIT OR, PANEL 1, W/CON F, URINE opiates NEGATI VE NG/mL <100 normal Not Available [facility] [place] [address] [place], [address], 01/19/2024 13:47:47 01/18/20 24 01/19/2024 DRUG MONIT OR, PANEL 1, W/CON F, URINE oxycodone NEGATI VE NG/mL <100 normal Not Available [facility] [address] [place], [address], 01/19/2024 13:47:47 01/18/20 24 01/19/2024 DRUG MONIT OR, PANEL 1, W/CON F, URINE phencyclidin e NEGATI VE NG/mL <25 normal Not Available [facility] [address] [place], [address], 01/19/2024 13:47:47 01/18/20 24 01/19/2024 DRUG MONIT OR, PANEL 1, W/CON F, URINE creatinine 114.4 mg/dL > or = 20.0 normal Not Available [facility] [address] [place], [address], 01/19/2024 13:47:47 01/18/20 24 01/19/2024 DRUG MONIT OR, PANEL 1, W/CON F, URINE pH 7.8 4.5-9. 0 normal Not Available [facility] [address] [place], [address], 01/19/2024 13:47:47 01/18/20 24 01/19/2024 DRUG MONIT OR, PANEL 1, W/CON F, URINE oxidant NEGATI VE mcg/m L <200 normal Not Available [facility] [address] [place], [address], 01/19/2024 13:47:47 01/18/20 24 01/19/2024 DRUG MONIT ORING TEMPL ATE notes and comments This drug testi ng is for medic al treat ment only. Alpa sis was perfo rmed as non-f orens ic testi ng and these resul ts shoul d be used only by [facility]alt [facility] prov[facility] ders to rende r diagn osis or treat ment, or to monit or progr ess of medic al condi tions . Healt [facility] Provi ders needi ng Inter preta tion rosio tance , pleas e conta ct us at 1.877 .40.R XTOX (1.87 [phone] ) M-F, 8am to 10pm EST Not Available [facility] [address] [place], [address], 01/19/2024 13:47:48 11/23/19 25 11/23/2024 DRUG PROFI LE,UR ,9 DRUGS ,BUND amphetamines , urine See Final Result s NG/mL cutoff =1000 Amphe tamin e test inclu rajesh Amphe tamin e and Metha mphet amine . Not Available [facility] ([facility]) [address] [place], [address], 11/25/2024 15:07:27 11/23/19 25 11/23/2024 DRUG PROFI LE,UR ,9 DRUGS ,BUND barbiturate Negati ve NG/mL cutoff =300 Not Available [facility] ([facility]) [address] [place], [address], 11/25/2024 15:07:27 11/23/19 25 11/23/2024 DRUG PROFI LE,UR ,9 DRUGS ,BUND benzodiazepi chikis Negati ve NG/mL cutoff =300 Not Available [facility] ([facility]) [address] [place], [address], 11/25/2024 15:07:27 11/23/19 25 11/23/2024 DRUG PROFI LE,UR ,9 DRUGS ,BUND cannabinoid Negati ve NG/mL cutoff =50 Not Available [facility] ([facility]) [address] [place], [address], 11/25/2024 15:07:27 11/23/19 25 11/23/2024 DRUG PROFI LE,UR ,9 DRUGS ,BUND cocaine (metab.) Negati ve NG/mL cutoff =300 Not Available [facility] ([facility]) [address] [place], [address], 11/25/2024 15:07:27 11/23/19 25 11/23/2024 DRUG PROFI LE,UR ,9 DRUGS ,BUND opiates Negati ve NG/mL cutoff =300 Opiat e test inclu rajesh Codei ne and Morph ine only. Not Available [facility] ([facility]) [address] [place], [address], 11/25/2024 15:07:27 11/23/19 25 11/23/2024 DRUG PROFI LE,UR ,9 DRUGS ,BUND phencyclidin e Negati ve NG/mL cutoff =25 Not Available [facility] ([facility]) [address] [place], [address], 11/25/2024 15:07:27 11/23/19 25 11/23/2024 DRUG PROFI LE,UR ,9 DRUGS ,BUND methadone screen, urine Negati ve NG/mL cutoff =300 Not Available [facility] ([facility]) [address] [place], [address], 11/25/2024 15:07:27 11/23/19 25 11/23/2024 DRUG PROFI LE,UR ,9 DRUGS ,BUND propoxyphene , urine Negati ve NG/mL cutoff =300 Eff ectiv e December 04, 2024, this test will be disco ntinu ed. Pleas e conta ct your [facility] r[facility] repre senta tive for tova vud repla cemen t test optio ns. Not Available [facility] ([facility]) [address] [facility], [place], [address], 11/25/2024 15:07:27 11/23/19 25 11/25/2024 DRUG PROFI LE,UR ,9 DRUGS ,BUND amphetamines Negati ve cutoff =1000 Amphe tamin e test inclu rajesh Amphe tamin e and Metha mphet amine . Not Available [facility] ([facility]) [address] [facility], [place], [address], 11/25/2024 15:07:27 11/23/19 25 11/25/2024 GABAP ENTIN , URINE gabapentin, urine Negati ve ug/mL Not Available [facility] ([facility]) [address] [place], [address], 11/25/2024 15:07:27 04/16/20 25 04/16/2025 US, doppl er echoc ardio gram No observ ation record ed. [email or web address] [facility] [address], [place], [address], 04/16/2025 17:05:54 06/11/20 25 06/11/2025 XR, chest No observ ation record ed. [email or web address] [facility] [address], [place], [place], [address], 06/12/2025 08:21:15 06/11/2006/11/2025 CT, angio gram, chest , w/wo contr ast No observ ation record ed. [facility] [address], [place], [address], 06/12/2025 08:19:59 06/12/20 25 06/11/2025 elect fatimah paige am, tatyana ne ECG, 12 leads min No observ ation record ed. [facility] [address], [place], [address], 06/12/2025 08:19:32 Result Notes None recorded. 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 56859301401 9100 Active 2020 Not Available [facility] 22:18:15 Body mass index 20-24 - normal 758189515 Completed 202012/26/2021 Not Available [facility] 22:18:15 Chronic obstruct sam pulmonar y disease 02449445 Active 2020 Problem Code: J44.9; Problem Code Type: ICD-10; Not Available [facility] 22:18:15 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 00192351658 9105 Active 2020 Problem Code: M51.16; Problem Code Type: ICD-10; Not Available [facility] 22:18:15 Gastro-e sophagea l reflux disease with esophagi tis 789603162 Active 2021 Problem Code: K21.00; Problem Code Type: ICD-10; Not Available [facility] 22:18:15 Body mass index 25-29 - overweig ht 399336150 Active 2021 Problem Code: Z68.27; Problem Code Type: ICD-10; Not Available [facility] 22:18:15 Mixed hyperlip idemia 655189622 Active 2021 Problem Code: E78.2; Problem Code Type: ICD-10; Not Available [facility] 22:18:14 Finding of general energy 920020895 Active 2021 Problem Code: R53.83; Problem Code Type: ICD-10; Not Available [facility] 22:18:15 Nocturia 197367994 Active 2021 Problem Code: R35.1; Problem Code Type: ICD-10; Not Available [facility] 22:18:15 Myocardi al infarcti on 53787839 Active 2024 Cristina Wright APRN [address] [place] [address], [address] , [employer] 5 15:52:58 Heart failure 94315072 Active 2024 Cristina Wright APRN [address] [place] [address], [address] , [employer] 5 15:53:58 Notes:*Problem Name: Encount er for general adult medical examination *ICD-10 Codes: Z00.00 *Problem Status: Chronic *Comments: [id number]: 'Z00.0'; *Problem Code: Z00.0 *Problem Code Type: ICD-10 *Note Date: 10/01/2021 Problem Notes None recorded. Procedures Surgical History Date Name Laterality Status Provider Name and Address Organization Details Recorded Time placement of stent in coronary artery completed Cristina Wright, [employer] [address] [place], [address], [facility] [employer] 03/20/2025 15:39:43 Imaging Results None recorded. Procedure [...] Relief 50 mcg/actuati on nasal spray,suspe nsion [place] 1 spray(s) every day by intranasa l [...] and Address Organization Details Last Updated DateTime 167.64 cm 22.6 kg/m2 92118.6 5 g 97.7 [degF] 89 /min 97 % 97 % 103/58 mm[Hg] GIOVANNY [employer] 4 16:07:46 Date Recorded Body height Body mass index (BMI) Body weight Heart rate Oxygen saturation Oxygen saturation in Arterial blood by Pulse oximetry Systolic And Diastolic Provider Name and Address Organization Details Last Updated DateTime 5 167.64 cm 24.5 kg/m2 22730.0 4 g 89 /min 97 % 97 % 128/78 mm[Hg] Elaine Vie[email or web address] 5 14:05:04 Date Recorded Body height Body mass index (BMI) Body weight Body temperature Heart rate Oxygen saturation Oxygen saturation in Arterial blood by Pulse oximetry Systolic And Diastolic Provider Name and Address Organization Details Last Updated DateTime 4 167.64 cm 24.5 kg/m2 92633.0 4 g 98 [degF] 99 /min 98 % 98 % 118/64 mm[Hg] GIOVANNY [employer] 4 11:23:16 Date Recorded Body height Body mass index (BMI) Body weight Body temperature Heart rate Oxygen saturation Oxygen saturation in Arterial blood by Pulse oximetry Systolic And Diastolic Provider Name and Address Organization Details Last Updated DateTime 5 167.64 cm 24.6 kg/m2 56741.7 6 g 98.1 [degF] 93 /min 97 % 97 % 90/56 mm[Hg] GIOVANNY [employer] 5 15:46:50 Date Recorded Body height Body mass index (BMI) Body weight Body temperature Heart rate Oxygen saturation Oxygen saturation in Arterial blood by Pulse oximetry Systolic And Diastolic Provider Name and Address Organization Details Last Updated DateTime 4 167.64 cm 25.1 kg/m2 77991.6 9 g 97.7 [degF] 112 /min 97 % 97 % 115/71 mm[Hg] GIOVANNY [facility] 4 16:55:19 Social History Question Answer Notes LastModified by Organizat ion Details LastModified Time Tobacco Smoking Status Current Every Day Smoker SocialHistor yQuestion: 'Tobacco/Alc ohol/Supplem ents'; SocialHistor yResponse: 'Current Everyday Smoker'; Not Available [facility] 05/12/2022 22:55:26 Do You Have An [...] Do You Have A Medical Power Of Engraver Signature? No Information not available 06/26/2022 What Was [...] in father*Relative: Father Medical History Condition Response Coronary Artery Disease Y Heart Problems Y Hospitalizations N Emergency room visit since last appointm ent. N Lung Disease Y Acid Reflux (GERD) Y Reflux/GERD Y High Cholesterol Y Heart Disease Y Past Encounters Encounter ID Performer Location Encounter Start Date Encounter Closed Date Diagnosis/Indication Diagnosis SNOMED-CT Code Diagnosis ICD10 Code Diagnosis IMO Codes Diagnosis Note [id number] Cristina Wright [address] [address] 06/26/2022 15:22:51 06/26/2022 15:59:53 Radiculopathy due to lumbar intervertebral disc disorder 2795340579 11045 M51.16 D/c Gabapentin due to memory loss, [...] also again today recommende d smoking cessation. [id number] Cristina Kyle [address] [address] 01/13/2023 14:10:45 01/13/2023 16:27:07 Moderate major depression, single episode 15560995 F32.1 Chronic ob structive pulmonary disease 97645399 J44.9 Sherwin reviewed today, urine drug screen [...] today. 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 Radiculopa thy due to lumbar intervertebral disc disorder 1499671382 88455 M51.16 Trial of muscle relaxants and Cymbalta. Moderate m ajor depression, single episode 29286364 F32.1 Chronic ob structive pulmonary disease 40475198 J44.9 Continue inhalers. Smoking cessation was again recommende d. Gastro-eso phageal reflux disease with esophagitis 570414358 K21.00 Refill PPI today. [id number] [place] [address] 10/19/2023 15:53:43 10/19/2023 16:31:57 Moderate major depression, single episode 77641449 F32.1 Start Paxil 10 mg daily. He continues to refuse referral to MAT program and Behavioral Health. Chronic ob structive pulmonary disease 54558021 J44.9 Continue inhalers. Smoking cessation was again recommende d. Gastro-eso phageal reflux disease with esophagitis 933514558 K21.00 Refill PPI today. Zofran prn nausea. Radiculopa thy due to lumbar intervertebral disc disorder 4776555609 M51.16 Continue Flexeril. [id number] [place] [address] 01/18/2024 10:59:59 01/18/2024 11:53:01 Chronic obstructive pulmonary disease 50717451 J44.9 Continue inhalers. Smoking cessation was again recommende d. Mixed hyperlipidemia 267 007135 E78.2 Nocturia 703826567 R35.1 Hepatitis C screening 41 4372807 Z11.59 HIV screening 156574126 Z11.4 History of recreational drug use 280680377 F19.21 Radiculopa thy due to lumbar intervertebral disc disorder 3012550986 91658 M51.16 Continue Flexeril. Moderate m ajor depression, single episode 57137863 F32.1 Continue Paxil and Remeron. Gastro-eso phageal reflux disease with esophagitis 610272008 K21.00 Refill PPI today. Tobacco de pendence caused by cigarettes 7525562449 5945780 F17.210 Smoking cessation encouraged . [id number] [place] [address] 04/05/2024 16:34:49 04/05/2024 17:37:40 Radiculopathy due to lumbar intervertebral disc disorder 0251389015 81615 M51.16 Continue Flexeril. Sherwin reviewed. UDS was NML at last visit in January. intermediate card tender controlled substance agreement explained and signed to begin low dose gabapentin . Moderate m ajor depression, single episode 06399806 F32.1 Continue Paxil and Remeron. Gastro-eso phageal reflux disease with esophagitis 901061039 K21.00 Refill PPI today. Chronic ob structive pulmonary disease 55485205 J44.9 Continue inhalers. Smoking cessation was again recommende d. Tobacco de pendence caused by cigarettes 6706839502 0489831 F17.210 Smoking cessation encouraged . Body mass index 25-29 - overweight 682713308 Z68.25 [id number] [place] [address] 11/22/2024 13:50:52 11/22/2024 14:31:43 Moderate major depression, single episode 49299575 F32.1 Restart Paxil and Remeron. Gastro-eso phageal reflux disease with esophagitis 023241018 K21.00 Refill PPI today. Chronic ob structive pulmonary disease 05764354 J44.9 Continue inhalers. Smoking cessation was again recommende d. Long-term current use of drug therapy 435994733 Z79.899 Radiculopa thy co-occurrent and due to thoracic intervertebral disc disorder 8484030686 18867 M51.15 I will refer gabapentin and muscle relaxants if UDS is neg. Previous MRI has revealed severe lumbar DDD. Tobacco de pendence caused by cigarettes 7003052411 5024560 F17.210 Smoking cessation encouraged . [id number] Cristina Wright APRN [address] [address] 03/20/2025 15:31:13 03/20/2025 16:37:11 Myocardial infarction 72036073 I21.4 208959 Stop smoking, continue all meds, keep f/up plan with Cardiology , complete Cardiac rehab when cleared to begin. Heart failure 39881869 I 50.9 7714955966 DASH diet, smoking cessation encouraged . Tobacco de pendence caused by cigarettes 0078452688 1564033 F17.210 Smoking cessation encouraged . Gastro-eso phageal reflux disease with esophagitis 666678771 K21.00 Refill PPI today. Moderate m ajor depression, single episode 99238556 F32.1 Restart Paxil and Remeron. Chronic ob structive pulmonary disease 45887237 J44.9 Continue inhalers. Smoking cessation was again [...] - [facility] WRAP BILLING (MEDICAID) Cale Loera [id number] Juanito Loera 04/09/2025 1 [employer] [facility] (MEDICAID [facility]) Cale Loera [id number] Juanito Loera 01/13/2023 1 *SELF PAY* Co [...] in the HPI Cristina Wright APRN [address] [place], [address], [facility] [employer] 11/07/2023 17:46:05 4 text/html Anxiety/DepressionReported by [...] as noted in the HPI Cristina Wright, GATO [address] [place], [address], [facility] [employer] 01/18/2024 13:07:50 4 text/html Anxiety/DepressionReported by [...] in the HPI Cristina Wright APRN [address] [facility], [place], [address], [facility] [employer] 04/09/2024 18:55:13 5 text/html Anxiety/DepressionReported by [...] as noted in the HPI Cristina Wright, GATO [address] [place], [address], [facility] [employer] 12/04/2024 21:32:55 5 text/html Hospitalization Contact RecordReported by PatientHospitalization Contact RecordFor follow up, patient reportshospital: __ ([facility])anddate of discharge: (please enter in format 'mm/dd/yyyy') (03/09/2025).Pt was admitted to [facility] due to late presentation STEMI with [...] in the HPI Cristina Wright APRN [address] [facility], [place], [address], [facility] [employer] 04/08/2025 16:26:20
== END 2025-06-21 23:59 | disposition home or self-care (01) ==
LOC: RT 13:47
PROVIDERS: PCP Nurse Practitioner Family; Visit Provider Physician Assistant
DX: I50.20 Unspecified systolic (congestive) heart failure (principal); I25.10 Atherosclerotic heart disease of native coronary artery without angina pectoris; R93.1 Abnormal findings on diagnostic imaging of heart and coronary circulation
CPT/HCPCS: 93308

== ENCOUNTER 2025-08-27 02:43 | Emergency (ER) | payer OTHER, SELFPAY ==
--- OUTSIDE RECORDS SUMMARY | 2025-08-27 02:49 | XMS_ITS | Data Portability ---
Author Organization [facility] Address [address] [place] [address] Assessment No assessment recorded. Plan of Treatment Reminders Order Date Submit Date Provider Last Modified By Organization Details Last Modified Time Details Appointments None recorded. Lab drug screen, urine 2024 025 [place] [facility] [address] [place], [address], 5 15:07:27 unlisted lab - gabapentin, urine 2024 025 [place] [facility]), [address] [facility], [place], [address], 5 15:07:27 lipid panel, serum 2023 024 [facility], [address], [place], [address], 4 06:50:58 CMP, serum or plasma 2023 024 [facility], [address], [place], [address], 4 06:50:59 RPR (rapid plasma reagin), serum 2023 024 [facility], [address], [place], [address], 4 06:51:03 drug screen, urine 2023 024 [place] [facility], [address], [place], [address], 4 13:47:47 CBC w/ auto diff 2023 024 [place] [facility], [address], [place], [address], 4 06:51:00 PSA, serum or plasma 2023 024 [place] [facility], [address], [place], [address], 4 06:51:02 hepatitis C virus Ab, serum 2023 024 [place] [facility], [address], [place], [address], 4 06:51:01 HIV 1+2 Ab + HIV1 p24 Ag, quantitativ e immunoassay , serum 2023 024 [place] [facility], [address], [place], [address], 4 06:51:01 Referral None recorded. Procedures None recorded. Surgeries None recorded. Imaging None recorded. Medication Orders nitroglycer in 0.4 mg sublingual tablet 2024 025 [facility], [facility] [place], [address], 5 16:13:51 omeprazole 20 mg capsule,del ayed release 2024 025 [place] [facility], [address] [place], [address], 5 16:20:25 ondansetron 8 mg disintegrat ing tablet 2024 025 [facility], [address] [place] [address], [address], 10:42:21 paroxetine 10 mg tablet 2024 025 [facility], [address] [place] [address], [address], 18:06:27 Remeron 30 mg tablet 2024 025 [facility], [address] [place] [address], [address], 18:06:29 ProAir HFA 90 mcg/actuati on aerosol inhaler 2024 025 [facility], [address] [place] [address], [address], 18:06:28 Symbicort 160 mcg-4.5 mcg/actuati on HFA aerosol inhaler 2024 025 [facility], [address] [place] [address], [address], 18:06:26 omeprazole 20 mg capsule,del ayed release 2024 025 [facility], [address] [place] [address], [address], 11:23:59 Remeron 30 mg tablet 2024 025 [facility], [address] [place] [address], [address], 17:34:02 paroxetine 10 mg tablet 2024 025 [facility], [address] [place] [address], [address], 17:34:03 Symbicort 160 mcg-4.5 mcg/actuati on HFA aerosol inhaler 2024 025 [facility], [address] [place] [address], [address], 5 17:34:03 ProAir HFA 90 mcg/actuati on aerosol inhaler 2024 025 [facility], [address] [place] [address], [address], 5 17:34:01 omeprazole 20 mg capsule,del ayed release 2023 024 [facility], [address] [place] [address], [address], 4 17:58:47 Remeron 30 mg tablet 2023 024 [facility], [address] [place] [address], [address], 4 12:16:52 paroxetine 10 mg tablet 2023 024 [facility], [address] [place] [address], [address], 4 12:16:52 Symbicort 160 mcg-4.5 mcg/actuati on HFA aerosol inhaler 2023 024 [facility], [address] [place] [address], [address], 4 12:16:51 ProAir HFA 90 mcg/actuati on aerosol inhaler 2023 024 [facility], [address] [place] [address], [address], 4 12:16:53 cyclobenzap rine 10 mg tablet 2023 024 [facility], [address] [facility], [place], [address], 5 15:47:00 gabapentin 300 mg capsule 2023 024 [facility], [address] [facility], [place], [address], 5 15:47:07 omeprazole 20 mg capsule,del ayed release 2023 024 [place] [facility], [address], [place], [address], 4 11:50:40 Remeron 30 mg tablet 2023 024 [place] [facility], [address], [place], [address], 4 12:34:49 paroxetine 10 mg tablet 2023 024 [place] [facility], [address], [place], [address], 4 12:34:48 Symbicort 160 mcg-4.5 mcg/actuati on HFA aerosol inhaler 2023 024 [place] [facility], [address], [place], [address], 4 15:28:20 ProAir HFA 90 mcg/actuati on aerosol inhaler 2023 024 [place] [facility], [address], [place], [address], 4 12:34:47 cyclobenzap rine 10 mg tablet 2023 024 [facility], [address], [place], [address], 5 15:47:00 omeprazole 20 mg capsule,del ayed release 2023 024 [place] [facility], [address], [place], [address], 4 17:18:08 Zofran 4 mg tablet 2023 024 [facility], [address], [place], [address], 5 14:21:44 Remeron 30 mg tablet 2023 024 [place] [facility], [address], [place], [address], 4 16:01:51 paroxetine 10 mg tablet 2023 024 [place] [facility], [address], [place], [address], 4 16:01:52 Symbicort 160 mcg-4.5 mcg/actuati on HFA aerosol inhaler 2023 024 [place] [facility], [address], [place], [address], 4 16:01:53 ProAir HFA 90 mcg/actuati on aerosol inhaler 2023 024 [place] [facility], [address], [place], [address], 4 16:01:50 cyclobenzap rine 10 mg tablet 2023 024 anyi [facility], [address], [place], [address], 5 15:47:00 Flonase Allergy Relief 50 mcg/actuati on nasal spray,suspe nsion 2023 024 anyi [facility], [address], [place], [address], 15:46:55 Patient TargetsNo targets recorded. Patient InstructionsNo instructions recorded. Reason for Referral None Reported. Results Created Date Observation Date Name Description Value Unit Range Abnormal Flag Note LastModifiedBy Organization Detail LastModifiedTime 01/18/20 24 01/19/2024 LIPID PANEL , STAND NABILA cholesterol, total 196 mg/dL <200 normal Not Available [facility] [address] [facility], [place], [address], 01/19/2024 11:02:26 01/18/20 24 01/19/2024 LIPID PANEL , STAND NABILA HDL cholesterol 61 mg/dL > or = 40 normal Not Available [facility] [address] [facility], [place], [address], 01/19/2024 11:02:26 01/18/20 24 01/19/2024 LIPID PANEL , STAND NABILA triglyceride s 78 mg/dL <150 normal Not Available [facility] [address] [facility], [place], [address], 01/19/2024 11:02:26 01/18/2001/19/2024 LIPID PANEL , STAND [...] 2061- 2068 (http ://ed ucati on.Qu estDi [employer]s. com/f aq/FA Q164) Not Available [facility] [address] [facility], [place], [address], 01/19/2024 11:02:26 01/18/20 24 01/19/2024 LIPID PANEL , STAND NABILA chol/HDLC ratio 3.2 (calc ) <5.0 normal Not Available [facility] [address] [facility] [place], [address], 01/19/2024 11:02:26 01/18/20 24 01/19/2024 LIPID PANEL , STAND NABILA non HDL cholesterol 135 mg/dL _(selvin c) <130 high For patie nts with diabe herminia plus 1 major ASCVD risk facto r, treat ing to a non-H DL-C goal of <100 mg/dL (LDL- C of <70 mg/dL ) is consi dered a thera peuti c optio n. Not Available [facility] [address] [place], [address], 01/19/2024 11:02:26 01/18/20 24 01/19/2024 COMPR EHENS SAM METAB OLIC PANEL glucose 98 mg/dL 65-99 normal Fasti ng refer ence inter sherley Not Available [facility] [address] [facility] [place], [address], 01/19/2024 11:02:27 01/18/20 24 01/19/2024 COMPR EHENS SAM METAB OLIC PANEL urea nitrogen (BUN) 13 mg/dL 7-25 normal Not Available [facility] [address] [facility] [place], [address], 01/19/2024 11:02:27 01/18/20 24 01/19/2024 COMPR EHENS SAM METAB OLIC PANEL creatinine 1.06 mg/dL 0.70-1 .30 normal Not Available [facility] [address] [place], [address], 01/19/2024 11:02:27 01/18/20 24 01/19/2024 COMPR EHENS SAM METAB OLIC PANEL eGFR 83 mL/mi n/1.7 3m2 > or = 60 normal Not Available [facility] [address] [place], [address], 01/19/2024 11:02:27 01/18/20 24 01/19/2024 COMPR EHENS SAM METAB OLIC PANEL BUN/creatini ne ratio SEE NOTE: (calc ) 6-22 Not Repor mauricio: BUN and Creat inine are withi n refer ence range . Not Available [facility] [address] [facility] [place], [address], 01/19/2024 11:02:27 01/18/20 24 01/19/2024 COMPR EHENS SAM METAB OLIC PANEL sodium 137 mmol/ L 135-14 6 normal Not Available [facility] [address] [facility] [place] [place], [address], 01/19/2024 11:02:27 01/18/20 24 01/19/2024 COMPR EHENS SAM METAB OLIC PANEL potassium 4.8 mmol/ L 3.5-5. 3 normal Not Available [facility] [address] [facility] [place], [address], 01/19/2024 11:02:27 01/18/20 24 01/19/2024 COMPR EHENS SAM METAB OLIC PANEL chloride 102 mmol/ L 98-110 normal Not Available [facility] [address] [place], [address], 01/19/2024 11:02:27 01/18/20 24 01/19/2024 COMPR EHENS SAM METAB OLIC PANEL carbon dioxide 28 mmol/ L 20-32 normal Not Available [facility] [address] [facility] [place], [address], 01/19/2024 11:02:27 01/18/20 24 01/19/2024 COMPR EHENS SAM METAB OLIC PANEL calcium 9.4 mg/dL 8.6-10 .3 normal Not Available [facility] [address] [place], [address], 01/19/2024 11:02:27 01/18/20 24 01/19/2024 COMPR EHENS SAM METAB OLIC PANEL protein, total 6.5 g/dL 6.1-8. 1 normal Not Available [facility] [address] [facility] [place] [place], [address], 01/19/2024 11:02:27 01/18/20 24 01/19/2024 COMPR EHENS SAM METAB OLIC PANEL albumin 4.2 g/dL 3.6-5. 1 normal Not Available [facility] [address] [facility] [place], [address], 01/19/2024 11:02:27 01/18/20 24 01/19/2024 COMPR EHENS SAM METAB OLIC PANEL globulin 2.3 g/dL_ (calc ) 1.9-3. 7 normal Not Available [facility] [address] [facility] [place] [place], [address], 01/19/2024 11:02:27 01/18/20 24 01/19/2024 COMPR EHENS SAM METAB OLIC PANEL albumin/glob ulin ratio 1.8 (calc ) 1.0-2. 5 normal Not Available [facility] [address] [place], [address], 01/19/2024 11:02:27 01/18/20 24 01/19/2024 COMPR EHENS SAM METAB OLIC PANEL bilirubin, total 0.5 mg/dL 0.2-1. 2 normal Not Available [facility] [address] [facility] [place], [address], 01/19/2024 11:02:27 01/18/20 24 01/19/2024 COMPR EHENS SAM METAB OLIC PANEL alkaline phosphatase 61 U/L 35-144 normal Not Available [facility] [address] [place], [address], 01/19/2024 11:02:27 01/18/20 24 01/19/2024 COMPR EHENS SAM METAB OLIC PANEL AST 12 U/L 10-35 normal Not Available [facility] [address] [place], [address], 01/19/2024 11:02:27 01/18/20 24 01/19/2024 COMPR EHENS SAM METAB OLIC PANEL ALT 8 U/L 9-46 low Not Available [facility] [address], [place], [address], 01/19/2024 11:02:27 01/18/20 24 01/19/2024 CBC (INCL UDES DIFF/ PLT) white blood cell count 6.6 thous and/u L 3.8-10 .8 normal Not Available [facility] [address] [place], [address], 01/19/2024 06:51:00 01/18/2001/19/2024 CBC (INCL UDES DIFF/ PLT) red blood cell count 5.08 nathan on/uL 4.20-5 .80 normal Not Available [facility] [address], [place], [address], 01/19/2024 06:51:00 01/18/2001/19/2024 CBC (INCL UDES DIFF/ PLT) hemoglobin 14.9 g/dL 13.2-1 7.1 normal Not Available [facility] [address], [place], [address], 01/19/2024 06:51:00 01/18/20 24 01/19/2024 CBC (INCL UDES DIFF/ PLT) hematocrit 44.4 % 38.5-5 0.0 normal Not Available [facility] [address] [facility] [place], [address], 01/19/2024 06:51:00 01/18/2001/19/2024 CBC (INCL UDES DIFF/ PLT) MCV 87.4 fL 80.0-1 00.0 normal Not Available [facility] [address] [place], [address], 01/19/2024 06:51:00 01/18/2001/19/2024 CBC (INCL UDES DIFF/ PLT) MCH 29.3 pg 27.0-3 3.0 normal Not Available [facility] [address] [facility] [place], [address], 01/19/2024 06:51:00 01/18/2001/19/2024 CBC (INCL UDES DIFF/ PLT) MCHC 33.6 g/dL 32.0-3 6.0 normal Not Available [facility] [address] [facility] [place], [address], 01/19/2024 06:51:00 01/18/2001/19/2024 CBC (INCL UDES DIFF/ PLT) RDW 12.9 % 11.0-1 5.0 normal Not Available [facility] [address] [place], [address], 01/19/2024 06:51:00 01/18/2001/19/2024 CBC (INCL UDES DIFF/ PLT) platelet count 286 thous and/u L 140-40 0 normal Not Available [facility] [address] [place], [address], 01/19/2024 06:51:00 01/18/2001/19/2024 CBC (INCL UDES DIFF/ PLT) MPV 9.4 fL 7.5-12 .5 normal Not Available [facility] [address], [place], [address], 01/19/2024 06:51:00 01/18/20 24 01/19/2024 CBC (INCL UDES DIFF/ PLT) absolute neutrophils 3056 cells /uL 1500-7 800 normal Not Available [facility] [address] [facility], [place], [address], 01/19/2024 06:51:00 01/18/20 24 01/19/2024 CBC (INCL UDES DIFF/ PLT) absolute lymphocytes 2930 cells /uL 850-39 00 normal Not Available [facility] [address] [facility] [address], [place], [address], 01/19/2024 06:51:00 01/18/2001/19/2024 CBC (INCL UDES DIFF/ PLT) absolute monocytes 442 cells /uL 200-95 0 normal Not Available [facility] [address] [facility] [address], [place], [address], 01/19/2024 06:51:00 01/18/2001/19/2024 CBC (INCL UDES DIFF/ PLT) absolute eosinophils 132 cells /uL 15-500 normal Not Available [facility] [address], [place], [address], 01/19/2024 06:51:00 01/18/20 24 01/19/2024 CBC (INCL UDES DIFF/ PLT) absolute basophils 40 cells /uL 0-200 normal Not Available [facility] [address], [place], [address], 01/19/2024 06:51:00 01/18/2001/19/2024 CBC (INCL UDES DIFF/ PLT) neutrophils 46.3 % normal Not Available [facility] [address], [place], [address], 01/19/2024 06:51:00 01/18/20 24 01/19/2024 CBC (INCL UDES DIFF/ PLT) lymphocytes 44.4 % normal Not Available [facility] [address] [place], [address], 01/19/2024 06:51:00 01/18/20 24 01/19/2024 CBC (INCL UDES DIFF/ PLT) monocytes 6.7 % normal Not Available [facility] [address] [place], [address], 01/19/2024 06:51:00 01/18/2001/19/2024 CBC (INCL UDES DIFF/ PLT) eosinophils 2.0 % normal Not Available [facility] [address] [place], [address], 01/19/2024 06:51:00 01/18/20 24 01/19/2024 CBC (INCL UDES DIFF/ PLT) basophils 0.6 % normal Not Available [facility] [address] [place], [address], 01/19/2024 06:51:00 01/18/20 24 01/20/2024 HEPAT ITIS [...] a test for HCV RNA (test code 25592 ) is sugge sted. For addit ional infor carlos n pleas e refer to http: //[facility] veraque stdia gnost ics.c om/fa q/FAQ 22v1 (This link is being provi ded for infor carlos nal/ educa gaye l purpo ses only. ) Not Available [facility] [address] [facility], [place], [address], 01/20/2024 01:24:05 01/18/2001/20/2024 HIV 1/2 ANTIG EN/AN [...] matio n pleas e refer to http: //[facility] [place] stdia gnost ics.c om/fa q/FAQ 106 (This link is being provi ded for infor matio nal/ educa gaye l purpo ses only. ) The perfo rmanc e of this assay has not been clini zi valid ated in patie nts less than 2 years old. Not Available [facility] [address] [facility], [place], [address], 01/20/2024 01:24:06 01/18/2001/19/2024 PSA, TOTAL PSA, total [...] not be inter prete d as absol [place] evide nce of the prese nce or absen ce of disea se. Not Available [facility] [address] [place], [address], 01/19/2024 14:13:36 01/18/20 24 01/19/2024 RPR (DX) W/REF L TITER AND T. PALLI DUM AB, IA RPR (DX) w/refl titer and confirmatory testing NON-RE ACTIVE non-re active normal No labor atory evide nce of syphi lis. If recen t expos ure is suspe cted, submi t a new sampl e in 2-4 weeks . Not Available [facility] [address] [place], [address], 01/19/2024 12:53:08 01/18/20 24 01/19/2024 DRUG MONIT OR, PANEL 1, W/CON F, URINE amphetamines NEGATI VE NG/mL <500 normal Not Available [facility] [address] [facility] [place], [address], 01/19/2024 13:47:47 01/18/20 24 01/19/2024 DRUG MONIT OR, PANEL 1, W/CON F, URINE barbiturates NEGATI VE NG/mL <300 normal Not Available [facility] [address] [place], [address], 01/19/2024 13:47:47 01/18/20 24 01/19/2024 DRUG MONIT OR, PANEL 1, W/CON F, URINE benzodiazepi chikis NEGATI VE NG/mL <100 normal Not Available [facility] [place] [address] [place], [address], 01/19/2024 13:47:47 01/18/20 24 01/19/2024 DRUG MONIT OR, PANEL 1, W/CON F, URINE cocaine metabolite NEGATI VE NG/mL <150 normal Not Available [facility] [place] [address] [place], [address], 01/19/2024 13:47:47 01/18/20 24 01/19/2024 DRUG MONIT OR, PANEL 1, W/CON F, URINE marijuana metabolite NEGATI VE NG/mL <20 normal Not Available [facility] [place] [address] [place], [address], 01/19/2024 13:47:47 01/18/20 24 01/19/2024 DRUG MONIT OR, PANEL 1, W/CON F, URINE methadone metabolite NEGATI VE NG/mL <100 normal Not Available [facility] [place] [address] [place], [address], 01/19/2024 13:47:47 01/18/20 24 01/19/2024 DRUG MONIT OR, PANEL 1, W/CON F, URINE opiates NEGATI VE NG/mL <100 normal Not Available [facility] [place] [address] [place], [address], 01/19/2024 13:47:47 01/18/20 24 01/19/2024 DRUG MONIT OR, PANEL 1, W/CON F, URINE oxycodone NEGATI VE NG/mL <100 normal Not Available [facility] [address] [place], [address], 01/19/2024 13:47:47 01/18/20 24 01/19/2024 DRUG MONIT OR, PANEL 1, W/CON F, URINE phencyclidin e NEGATI VE NG/mL <25 normal Not Available [facility] [address] [place], [address], 01/19/2024 13:47:47 01/18/20 24 01/19/2024 DRUG MONIT OR, PANEL 1, W/CON F, URINE creatinine 114.4 mg/dL > or = 20.0 normal Not Available [facility] [address] [place], [address], 01/19/2024 13:47:47 01/18/20 24 01/19/2024 DRUG MONIT OR, PANEL 1, W/CON F, URINE pH 7.8 4.5-9. 0 normal Not Available [facility] [address] [place], [address], 01/19/2024 13:47:47 01/18/20 24 01/19/2024 DRUG MONIT OR, PANEL 1, W/CON F, URINE oxidant NEGATI VE mcg/m L <200 normal Not Available [facility] [address] [place], [address], 01/19/2024 13:47:47 01/18/20 24 01/19/2024 DRUG MONIT ORING TEMPL ATE notes and comments This drug testi ng is for medic al treat ment only. Alpa sis was perfo rmed as non-f orens ic testi ng and these resul ts shoul d be used only by [facility] d[facility] to rende r diagn osis or treat ment, or to monit or progr ess of medic al condi tions . Healt [facility] Provi ders needi ng Inter preta tion rosio tance , pleas e conta ct us at [phone] .40.R XTOX (1.87 [phone] ) M-F, 8am to 10pm EST Not Available [facility] [address] [place], [address], 01/19/2024 13:47:48 11/23/19 25 11/23/2024 DRUG PROFI LE,UR ,9 DRUGS ,BUND amphetamines , urine See Final Result s NG/mL cutoff =1000 Amphe tamin e test inclu rajesh Amphe tamin e and Metha mphet amine . Not Available [facility] ([facility]) [address] [place], [address], 11/25/2024 15:07:27 11/23/19 25 11/23/2024 DRUG PROFI LE,UR ,9 DRUGS ,BUND barbiturate Negati ve NG/mL cutoff =300 Not Available [facility] ([facility]) [address] [place], [address], 11/25/2024 15:07:27 11/23/19 25 11/23/2024 DRUG PROFI LE,UR ,9 DRUGS ,BUND benzodiazepi chikis Negati ve NG/mL cutoff =300 Not Available [facility] ([facility]) [address] [place], [address], 11/25/2024 15:07:27 11/23/19 25 11/23/2024 DRUG PROFI LE,UR ,9 DRUGS ,BUND cannabinoid Negati ve NG/mL cutoff =50 Not Available [facility] ([facility]) [address] [place], [address], 11/25/2024 15:07:27 11/23/19 25 11/23/2024 DRUG PROFI LE,UR ,9 DRUGS ,BUND cocaine (metab.) Negati ve NG/mL cutoff =300 Not Available [facility] ([facility]) [address] [place], [address], 11/25/2024 15:07:27 11/23/19 25 11/23/2024 DRUG PROFI LE,UR ,9 DRUGS ,BUND opiates Negati ve NG/mL cutoff =300 Opiat e test inclu rajesh Codei ne and Morph ine only. Not Available [facility] ([facility]) [address] [place], [address], 11/25/2024 15:07:27 11/23/19 25 11/23/2024 DRUG PROFI LE,UR ,9 DRUGS ,BUND phencyclidin e Negati ve NG/mL cutoff =25 Not Available [facility] ([facility]) [address] [place], [address], 11/25/2024 15:07:27 11/23/19 25 11/23/2024 DRUG PROFI LE,UR ,9 DRUGS ,BUND methadone screen, urine Negati ve NG/mL cutoff =300 Not Available [facility] ([facility]) [address] [place], [address], 11/25/2024 15:07:27 11/23/19 25 11/23/2024 DRUG PROFI LE,UR ,9 DRUGS ,BUND propoxyphene , urine Negati ve NG/mL cutoff =300 Eff ectiv e December 04, 2024, this test will be disco ntinu ed. Pleas e conta ct your [facility] r[facility] repre senta tive for tova vud repla cemen t test optio ns. Not Available [facility] ([facility]) [address] [facility], [place], [address], 11/25/2024 15:07:27 11/23/19 25 11/25/2024 DRUG PROFI LE,UR ,9 DRUGS ,BUND amphetamines Negati ve cutoff =1000 Amphe tamin e test inclu rajesh Amphe tamin e and Metha mphet amine . Not Available [facility] ([facility]) [address] [facility], [place], [address], 11/25/2024 15:07:27 11/23/19 25 11/25/2024 GABAP ENTIN , URINE gabapentin, urine Negati ve ug/mL Not Available [facility] ([facility]) [address] [place], [address], 11/25/2024 15:07:27 04/16/20 25 04/16/2025 US, doppl er echoc ardio gram No observ ation record ed. [email or web address] [facility] [address], [place], [address], 04/16/2025 17:05:54 06/11/20 25 06/11/2025 XR, chest No observ ation record ed. [address], [place], [address], 06/12/2025 08:21:15 06/11/20 25 06/11/2025 CT, angio gram, chest , w/wo contr ast No observ ation record ed. [address], [place], [address], 06/12/2025 08:19:59 06/12/20 25 06/11/2025 elect fatimah paige am, routi ne ECG, 12 leads min No observ ation record ed. [address], [place], [address], 06/12/2025 08:19:32 06/21/20 25 06/21/2025 US, doppl er echoc ardio gram No observ ation record ed. [email or web address] [address], [place], [address], 06/25/2025 09:00:42 Result Notes None recorded. 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 46247838550 9100 Active 2020 Not Available [facility] 2 22:18:15 Body mass index 20-24 - normal 393046144 Completed 202012/26/2021 Not Available [facility] 22:18:15 Chronic obstruct sam pulmonar y disease 90643642 Active 2020 Problem Code: J44.9; Problem Code Type: ICD-10; Not Available [facility] 22:18:15 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 54466622813 9105 Active 2020 Problem Code: M51.16; Problem Code Type: ICD-10; Not Available [facility] 22:18:15 Gastro-e sophagea l reflux disease with esophagi tis 132888714 Active 2021 Problem Code: K21.00; Problem Code Type: ICD-10; Not Available [facility] 22:18:15 Body mass index 25-29 - overweig ht 675877812 Active 2021 Problem Code: Z68.27; Problem Code Type: ICD-10; Not Available [facility] 22:18:15 Mixed hyperlip idemia 974903074 Active 2021 Problem Code: E78.2; Problem Code Type: ICD-10; Not Available [facility] 22:18:14 Finding of general energy 230580937 Active 2021 Problem Code: R53.83; Problem Code Type: ICD-10; Not Available [facility] 22:18:15 Nocturia 135923436 Active 2021 Problem Code: R35.1; Problem Code Type: ICD-10; Not Available [facility] 22:18:15 Myocardi al infarcti on 93232857 Active 2024 Cristina Wright APRN [address] [place], [address] , [facility] [employer] 5 15:52:58 Heart failure 51864047 Active 2024 Cristina Wright APRN [address] [place], [address] , [employer] 15:53:58 Notes:*Problem Name: Encount er for general adult medical examination *ICD-10 Codes: Z00.00 *Problem Status: Chronic *Comments: [id number]: 'Z00.0'; *Problem Code: Z00.0 *Problem Code Type: ICD-10 *Note Date: 10/01/2021 Problem Notes None recorded. Procedures Surgical History Date Name Laterality Status Provider Name and Address Organization Details Recorded Time placement of stent in coronary artery completed Cristina Wright, [employer] [address] [facility], [place], [address], [employer] 03/20/2025 15:39:43 Imaging Results None recorded. Procedure Notes None recorded. Medical Equipment None Reported. Allergies No known drug allergies Medications Name Sig Start Date Stop Date Status Note LastModified by Organization Details LastModified Time cyclobenzap rine 10 mg tablet TAKE ONE TABLET BY MOUTH TWICE DAILY NEEDED FOR back pain active Not Available Not Available No t Available atorvastati n 40 mg tablet Take 1 tablet every day by oral route at bedtime. 2024 active Not Available Not Available Not Avai lable paroxetine 10 mg tablet TAKE 1 TABLET BY MOUTH EVERY DAY FOR depressio n active Not Available Not Available No t Available ondansetron HCl 4 mg tablet TAKE 1 [...] Not Available Not Available Not Avai lable mirtazapine 30 mg tablet TAKE 1 TABLET BY MOUTH AT BEDTIME active Not Available Not Available No t Available nitroglycer in 0.[address] sub[address] [...] 160 mcg-4.5 mcg/actuati on HFA aerosol inhaler INHALE 2 puffs by MOUTH twice daily morning AND evening AND RINSE MOUTH AFTER USE active Not Available Not Available No t Available prasugrel HCl 10 mg tablet Take 1 tablet every day by oral route. 2024 active Not Available Not Available Not Avai lable Flonase Allergy Relief 50 mcg/actuati on nasal spray,suspe nsion [place] 1 spray(s) every day by intranasa l [...] weight Body temperature Heart rate Oxygen saturation Systolic And Diastolic Provider Name and Address Organization Details Last Updated DateTime 167.64 cm 22.6 kg/m2 97629.6 5 g 97.7 [degF] 89 /min 97 % 103/58 mm[Hg] [facility] [employer] 4 16:07:46 Date Recorded Body height Body mass index (BMI) Body weight Heart rate Oxygen saturation Systolic And Diastolic Provider Name and Address Organization Details Last Updated DateTime 5 167.64 cm 24.5 kg/m2 15323.0 4 g 89 /min 97 % 128/78 mm[Hg] Elaine Vieira [employer] 5 14:05:04 Date Recorded Body height Body mass index (BMI) Body weight Body temperature Heart rate Oxygen saturation Systolic And Diastolic Provider Name and Address Organization Details Last Updated DateTime 4 167.64 cm 24.5 kg/m2 98643.0 4 g 98 [degF] 99 /min 98 % 118/64 mm[Hg] GIOVANNY [employer] 4 11:23:16 Date Recorded Body height Body mass index (BMI) Body weight Body temperature Heart rate Oxygen saturation Systolic And Diastolic Provider Name and Address Organization Details Last Updated DateTime 5 167.64 cm 24.6 kg/m2 50477.7 6 g 98.1 [degF] 93 /min 97 % 90/56 mm[Hg] GIOVANNY [employer] 5 15:46:50 Date Recorded Body height Body mass index (BMI) Body weight Body temperature Heart rate Oxygen saturation Systolic And Diastolic Provider Name and Address Organization Details Last Updated DateTime 4 167.64 cm 25.1 kg/m2 77392.6 9 g 97.7 [degF] 112 /min 97 % 115/71 mm[Hg] GIOVANNY [employer] 4 16:55:19 Social History Question Answer Notes LastModified by Organizat ion Details LastModified Time Tobacco Smoking Status Current Every Day Smoker SocialHistor yQuestion: 'Tobacco/Alc ohol/Supplem ents'; SocialHistor yResponse: 'Current Everyday Smoker'; Not Available [employer] 05/12/2022 22:55:26 Do You Have An Advance [...] 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 03/20/2025 Information not available 03/20/2025 What Is Your Current Pack Years? 30ormorepac rafatears Information not available 06/26/2022 What Is Your [...] History Condition Response Coronary Artery Disease Y Emergency room visit since last appointm ent. N Lung Disease Y Acid Reflux (GERD) Y High Cholesterol Y Heart Problems Y Hospitalizations N Reflux/GERD Y Heart Disease Y Past Encounters Encounter ID Performer Location Encounter Start Date Encounter Closed Date Diagnosis/Indication Diagnosis SNOMED-CT Code Diagnosis ICD10 Code Diagnosis IMO Codes Diagnosis Note [id number] Cristina Wright [address] [address] 06/26/2022 15:22:51 06/26/2022 15:59:53 Radiculopathy due to lumbar intervertebral disc disorder 0427798484 58599 M51.16 D/c Gabapentin due to memory loss, [...] also again today recommende d smoking cessation. [id number] Cristina Wright [address] [address] 01/13/2023 14:10:45 01/13/2023 16:27:07 Moderate major depression, single episode 49591975 F32.1 Chronic ob structive pulmonary disease 44472036 J44.9 Sherwin reviewed today, urine drug screen [...] today. 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 Radiculopa thy due to lumbar intervertebral disc disorder 2398894796 21319 M51.16 Trial of muscle relaxants and Cymbalta. Moderate m ajor depression, single episode 58041408 F32.1 Chronic ob structive pulmonary disease 04946852 J44.9 Continue inhalers. Smoking cessation was again recommende d. Gastro-eso phageal reflux disease with esophagitis 404815733 K21.00 Refill PPI today. [id number] Cristina [place] [address] 10/19/2023 15:53:43 10/19/2023 16:31:57 Moderate major depression, single episode 27843028 F32.1 Start Paxil 10 mg daily. He continues to refuse referral to MAT program and Behavioral Health. Chronic ob structive pulmonary disease 67339228 J44.9 Continue inhalers. Smoking cessation was again recommende d. Gastro-eso phageal reflux disease with esophagitis 819207760 K21.00 Refill PPI today. Zofran prn nausea. Radiculopa thy due to lumbar intervertebral disc disorder 0609334824 M51.16 Continue Flexeril. [id number] [place] [address] 01/18/2024 10:59:59 01/18/2024 11:53:01 Chronic obstructive pulmonary disease 78690591 J44.9 Continue inhalers. Smoking cessation was again recommende d. Mixed hyperlipidemia 267 359261 E78.2 Nocturia 668308279 R35.1 Hepatitis C screening 41 9545821 Z11.59 HIV screening 268025746 Z11.4 History of recreational drug use 129282060 F19.21 Radiculopa thy due to lumbar intervertebral disc disorder 6207241227 98793 M51.16 Continue Flexeril. Moderate m ajor depression, single episode 95530813 F32.1 Continue Paxil and Remeron. Gastro-eso phageal reflux disease with esophagitis 805713667 K21.00 Refill PPI today. Tobacco de pendence caused by cigarettes 8386279261 4600271 F17.210 Smoking cessation encouraged . [id number] Cristina Wright [place] [address] 04/05/2024 16:34:49 04/05/2024 17:37:40 Radiculopathy due to lumbar intervertebral disc disorder 9014270732 31140 M51.16 Continue Flexeril. Sherwin reviewed. UDS was NML at last visit in January. medical terminologist controlled substance agreement explained and signed to begin low dose gabapentin . Moderate m ajor depression, single episode 84554757 F32.1 Continue Paxil and Remeron. Gastro-eso phageal reflux disease with esophagitis 774341327 K21.00 Refill PPI today. Chronic ob structive pulmonary disease 23947844 J44.9 Continue inhalers. Smoking cessation was again recommende d. Tobacco de pendence caused by cigarettes 2726071479 7796506 F17.210 Smoking cessation encouraged . Body mass index 25-29 - overweight 852226846 Z68.25 [id number] Cristina [place] [phone] 11/22/2024 13:50:52 11/22/2024 14:31:43 Moderate major depression, single episode 57522147 F32.1 Restart Paxil and Remeron. Gastro-eso phageal reflux disease with esophagitis 990907891 K21.00 Refill PPI today. Chronic ob structive pulmonary disease 37409962 J44.9 Continue inhalers. Smoking cessation was again recommende d. Long-term current use of drug therapy 304407409 Z79.899 Radiculopa thy co-occurrent and due to thoracic intervertebral disc disorder 6858923017 37020 M51.15 I will refer gabapentin and muscle relaxants if UDS is neg. Previous MRI has revealed severe lumbar DDD. Tobacco de pendence caused by cigarettes 8963218445 9524724 F17.210 Smoking cessation encouraged . [id number] Cristina Wright, [employer] [address] [address] 03/20/2025 15:31:13 03/20/2025 16:37:11 Myocardial infarction 94930736 I21.4 814019 Stop smoking, continue all meds, keep f/up plan with Cardiology , complete Cardiac rehab when cleared to begin. Heart failure 19832521 I 50.9 4989215627 DASH diet, smoking cessation encouraged . Tobacco de pendence caused by cigarettes 6565243876 3787401 F17.210 Smoking cessation encouraged . Gastro-eso phageal reflux disease with esophagitis 432380168 K21.00 Refill PPI today. Moderate m ajor depression, single episode 36110655 F32.1 Restart Paxil and Remeron. Chronic ob structive pulmonary disease 51735570 J44.9 Continue inhalers. Smoking cessation was again [...] - [facility] (MEDICAID) Cale Loera [id number] Juanito Loera 04/09/2025 1 [facility] (MEDICAID [facility]) Cale Loera [id number] Juanito Loera 01/13/2023 1 *SELF PAY* Co [...] in the HPI Cristina Wright, GATO [address] [facility], [place], [address], [facility] [employer] 11/07/2023 17:46:05 4 text/html Anxiety/DepressionReported by [...] as noted in the HPI Cristina Wright, [employer]ATE [address] [facility], [place], [address], [facility] [employer] 01/18/2024 13:07:50 4 text/html Anxiety/DepressionReported by [...] in the HPI Cristina Wright APRN [address] [place], [address], [facility] [employer] 04/09/2024 18:55:13 5 text/html Anxiety/DepressionReported by [...] in the HPI Cristina Wright APRN [address] [place], [address], [facility] [employer] 12/04/2024 21:32:55 5 text/html Hospitalization Contact RecordReported by PatientHospitalization Contact RecordFor follow up, patient reportshospital: __ ([facility])anddate of discharge: (please enter in format 'mm/dd/yyyy') (03/09/2025).Pt was admitted to [facility] due to late presentation STEMI with new [...] smoking.ROS as noted in the HPI Cristina Wright, GATO [address] [facility], [place], [address], [facility] [employer] 04/08/2025 16:26:20
--- NOTE | 2025-08-27 02:50 | ECG_ITS ---
APPROVED REPORT Exam: Resting ECG HR:87 bpm ECG Measurements Heart Rate 87 AXES NE 142 P 58 QRSd 95 QRS -71 QT 372 T 95 QTc 417 Conclusion SINUS RHYTHM WITH OCCASIONAL SUPRAVENTRICULAR PREMATURE COMPLEXES LEFT AXIS DEVIATION [QRS AXIS < -30] ANTEROSEPTAL MYOCARDIAL INFARCTION , OF INDETERMINATE AGE [40+ ms Q WAVE IN V1-V4] No STEMI Electronically signed by : GLENIS BARTON, 08/27/2025 05:56:27
--- NOTE | 2025-08-27 02:52 | CT_ITS ---
PROCEDURE INFORMATION: Exam: CTA Abdomen and Pelvis With Contrast Exam date and time: 08/27/2025 3:45 AM Age: 55 years old Clinical indication: Other: Nausea, vomiting; Abdominal pain; Generalized; Additional info: Abdominal cramping, passing brbpr, nausea/vom TECHNIQUE: Imaging protocol: Computed tomographic angiography of the abdomen and pelvis with contrast. Exam focused on the arteries. 3D rendering (Not supervised by radiologist): MIP and/or 3D reconstructed images were created by the technologist. Radiation optimization: All CT scans at this facility use at least one of these dose optimization techniques: automated exposure control; mA and/or kV adjustment per patient size (includes targeted exams where dose is matched to clinical indication); or iterative reconstruction. Contrast material: ISO 370; Contrast volume: 80 ml; Contrast route: INTRAVENOUS (IV); COMPARISON: CT ANGIO CHEST PE PROTOCOL 06/11/2025 8:18 PM FINDINGS: Aorta: No aortic aneurysm. No aortic dissection. Celiac and mesenteric arteries: No occlusion or significant stenosis. Renal arteries: No occlusion or significant stenosis. Right iliac arteries: No occlusion or significant stenosis. Left iliac arteries: No occlusion or significant stenosis. Liver: No mass. Gallbladder and biliary ducts: Unremarkable. No calcified stones. No ductal dilation. Pancreas: Unremarkable. No mass. No ductal dilation. Spleen: Unremarkable. No splenomegaly. Adrenal glands: Unremarkable. No mass. Kidneys and ureters: Unremarkable. No solid mass. No hydronephrosis. Stomach and bowel: Bowel wall thickening and inflammation in the descending colon. Appendix: No evidence of appendicitis. Intraperitoneal space: Unremarkable. No free air. No significant fluid collection. Lymph nodes: Unremarkable. No enlarged lymph nodes. Urinary bladder: Unremarkable. No mass. Reproductive: Unremarkable as visualized. Bones/joints: No acute fracture. Soft tissues: Unremarkable. IMPRESSION: 1. Bowel wall thickening and inflammation in the descending colon. Suspicious for colitis. 2. Normal angiogram.
--- NOTE | 2025-08-27 02:54 | XR_ITS ---
PROCEDURE INFORMATION: Exam: XR Chest Exam date and time: 08/27/2025 3:38 AM Age: 55 years old Clinical indication: Other: Chest/abdominal pain; Additional info: Chest pain TECHNIQUE: Imaging protocol: Radiologic exam of the chest. Views: 1 view. COMPARISON: CT ANGIO CHEST PE PROTOCOL 06/11/2025 8:18 PM FINDINGS: Tubes, catheters and devices: Monitoring leads project over the chest. Lungs: Unremarkable. No consolidation. Pleural spaces: Unremarkable. No pleural effusion. No pneumothorax. Heart/Mediastinum: Unremarkable. No cardiomegaly. Bones/joints: Unremarkable. IMPRESSION: No acute findings.
[2025-08-27 02:56] VITALS: BP 134/73; PULSE 77; RESP 18; TEMP 37.1; O2SAT 98; BMI 24.2
--- NOTE | 2025-08-27 02:58 | HMH.EDGENADL ---
Discharge Plan Disposition Patient Disposition: Home, Self-Care Condition: Good Prescriptions Prescriptions: New ondansetron 4 mg tablet,disintegrating 4 mg PO Q6H PRN (Reason: nausea and vomiting) Qty: 10 0RF No Action mirtazapine 30 mg tablet 30 mg PO HS Patient Comments: TAKE 1 TABLET BY MOUTH AT BEDTIME nitroglycerin 0.4 mg tablet, sublingual 0.4 mg sublingual Q5-15M PRN Patient Comments: DISSOLVE 1 TABLET UNDER THE TONGUE DIRECTED FOR CHEST pain AND call 911 prasugrel HCl 10 mg tablet 10 mg PO DAILY Qty: 30 5RF paroxetine HCl 10 mg tablet 10 mg PO DAILY Patient Comments: TAKE ONE TABLET BY MOUTH EVERY DAY FOR depression omeprazole 20 mg capsule,delayed release(DR/EC) 20 mg PO DAILY albuterol sulfate [Ventolin HFA] 90 mcg/actuation HFA aerosol inhaler 2 puff INHALATION Q4HP PRN (Reason: Shortness Of Breath) budesonide-formoterol [Symbicort] 160-4.5 mcg/actuation HFA aerosol inhaler 2 puff INHALATION BID Patient Comments: inhale 2 puffs by inhalation route 2 times per day in the morning and evening and rinse mouth after use atorvastatin 40 mg Tablet 80 mg PO HS 30 Days Qty: 60 0RF aspirin 81 mg Tablet,Delayed Release (Dr/Ec) 81 mg PO DAILY 30 Days Qty: 30 0RF metoprolol succinate 25 mg Tablet Extended Release 24 Hr 25 mg PO DAILY 30 Days Qty: 30 0RF doxycycline hyclate 100 mg capsule 100 mg PO BID 6 Days Qty: 12 0RF Referrals Follow up/Referrals: Cristina Wright [Primary Care Provider, Medical] - See instructions Jesu Sears MD [Staff Physician, General Surgery] - See instructions Referral Note: small BRBPR, family hx cancer, needs close follow up and colonoscopy Activity Restrictions/Add. Instructions Additional Instructions/Restrictions: You were evaluated in the ER and are believed to be appropriate for discharge at this time. Continue taking your home medications as prescribed. Monitor your bleeding closely as discussed and come back to the ER with persistent or worsening bleeding. Take the prescribed Zofran (ondansetron) if needed for nausea. Drink plenty of water, Gatorade, Pedialyte to stay hydrated. Eat a bland diet and gradually reintroduce normal food as tolerated. Please call your primary care doctor first thing this morning and make an appointment for reevaluation in the next 1 to 2 days. Do not wait until after the holiday for follow up. They should re-check your labs and see how your symptoms are progressing. Please follow-up with general surgery for colonoscopy, you have been referred to them for this purpose. Return to the ER with new, worsening, or otherwise concerning symptoms. Clinical Impressions Clinical Impression: BRBPR (bright red blood per rectum), Nausea, vomiting, and diarrhea Instructions Patient Instructions: [place] Diet, DI for Rectal Bleeding Print Language Print Language: Kitt[place] Discharge ED Provider: Armaan Weiner General Adult HPI General Chief complaint: Abdominal Pain Stated complaint: Blood in Stool; Cramping; Pressure in Chest Time Seen by Provider: 08/27/25 02:47 History of Present Illness HPI narrative: 55-year-old male with history of PA, HFrEF, tobacco use, COPD, reflux presents to the ER complaining of abdominal cramping, passing bright red blood per rectum, nausea and vomiting. Symptoms started 24 hours ago. He states he had constipation and took laxatives then had an episode of diarrhea with a small amount of blood, and since that time he has had a few episodes of significant abdominal cramping followed by passing bright red blood per rectum. Family showed me a photo of of small amount of blood in the toilet with a few small clots. It did not stain the toilet bowl. Patient states he is not having active bleeding and only passes blood after having cramping. He states he has had approximately 6 episodes of emesis that are nonbloody, nonbilious. Patient does take blood thinners and is wearing a LifeVest. He states after his PA this summer, he was supposed to have a defibrillator placed but this has not yet been completed. He states he is having some chest discomfort related to dry heaving but denies any active chest pain or pressure. He states he has no difficulty breathing. He reports this evening he was able to tolerate approximately 1/2 pack of plain crackers by mouth as well as Sprite. He has not had emesis since that time. He does state he is having reduced urine output. He states he has a history of BPH but has no sensation of needing to urinate, just that he has not passed much urine yet this morning. Denies fevers or chills. No headache or dizziness. No numbness, tingling, or weakness. He demonstrates to his epigastric and diffuse lower abdominal region when indicating where he gets cramping before having blood per rectum. He states he does have a strong family history of cancer. Denies dysuria or hematuria. No other complaints or concerns. Related Data Home Medications ?Medication ?Instructions ?Recorded ?Confirmed albuterol sulfate 90 mcg/actuation 2 puff inhalation Q4HP PRN 03/12/25 06/21/25 aerosol inhaler (Ventolin HFA) Shortness Of Breath budesonide-formoterol HFA 160 2 puff inhalation BID 03/12/25 06/21/25 mcg-4.5 mcg/actuation aerosol inhaler (Symbicort) omeprazole 20 mg capsule,delayed 20 mg PO DAILY 03/12/25 06/21/25 release paroxetine HCl 10 mg tablet 10 mg PO DAILY 03/12/25 06/21/25 mirtazapine 30 mg tablet 30 mg PO HS 06/14/25 06/21/25 nitroglycerin 0.4 mg sublingual 0.4 mg sublingual Q5-15M PRN 06/14/25 06/21/25 tablet Previous Rx's ?Medication ?Instructions ?Recorded aspirin 81 mg tablet,delayed 81 mg PO DAILY 30 days #30 tabs 03/15/25 release atorvastatin 40 mg tablet 80 mg (2 x 40 mg) PO HS 30 days 03/15/25 #60 tabs metoprolol succinate 25 mg 25 mg PO DAILY 30 days #30 tabs 03/15/25 tablet,extended release 24 hr doxycycline hyclate 100 mg capsule 100 mg PO BID 6 days #12 caps 06/11/25 prasugrel HCl 10 mg tablet 10 mg PO DAILY #30 tabs 06/21/25 ondansetron 4 mg disintegrating 4 mg PO Q6H PRN nausea and 08/27/25 tablet vomiting #10 tabs Allergies Allergy/AdvReac Type Severity Reaction Status Date / Time No Known Allergies Allergy Verified 06/21/25 14:36 [facility] Disclaimer: The information contained in this section may have been updated after the patient was seen, as this information can be updated by other users. Medical History GERD (gastroesophageal reflux disease) Arthritis Hiatal hernia COPD (chronic obstructive pulmonary disease) Surgical History History of removal of cyst History of banding of hemorrhoid Family History Other Family history of cancer Family history of coronary artery disease Social History Smoking Status: Never smoker second hand exposure: Yes alcohol intake: former current occupational status: employed Travel in the last 8 weeks?: None Have you lived/traveled outside [place] in past 30 days?: No Contact w/someone who lives/traveled outside [place] past 30 days?: No Exposure to someone with infectious disease in past 14 days?: No Do you have a fever (greater than 100.4 F or 38 C)?: No Have you tested positive for COVID-19?: No Exposed to someone with COVID-19 in past 14 days?: No Do you have a sore throat?: No Do you have a cough?: No Do you have any weakness?: No Do you have any diarrhea?: No Are you experiencing any unusual bleeding?: Yes Do you have any muscle aches/pain?: No Do you have any abdominal pain?: Yes Are you experiencing loss of taste or smell?: No Other Medical History Have you received the Flu Vaccine for this season: No Have you received the Pneumonia Vaccine: No ROS Obtained: Yes Systems reviewed as appropriate & no additional complaints except as documented per HPI Physical Exam General General appearance: alert and in no apparent distress Head Head exam: atraumatic and normocephalic Eye Eye exam: Present PERRL and EOMI ENT ENT exam: Present mucous membranes moist Neck Neck exam: Present normal inspection and full ROM Chest Chest inspection: Present symmetric chest wall rise and other (LifeVest in place); Absent tenderness Respiratory Respiratory exam: Present normal lung sounds bilaterally; Absent respiratory distress, wheezes or stridor Cardiovascular Cardiovascular exam: Present regular rate and normal rhythm Abdominal Exam Abdominal exam: Present soft; Absent distention, tenderness (No focal tenderness appreciated on exam), guarding, rebound or rigidity Extremities Exam Extremities exam: Present full ROM Neurological Exam Neurological exam: Present alert and oriented X3; Absent motor sensory deficit Psychiatric Psychiatric exam: Present normal affect and normal mood Skin Skin exam: Present warm and dry Medical Decision Making Medical Records Medical records reviewed: Yes I reviewed the patient's medical records. Screening: Per USPSTF and CDC recommendations, given the prevalence of disease in our region, it is our hospital?s policy to screen for HIV and viral Hepatitis for all patients aged 18 and over and those with ongoing risk factors. MR Comment: Most recent ECG reviewed is similar morphology to today's [place] Inquiry Pt receiving controlled substance: No Vital Signs: 08/27/25 02:56 Temperature 98.7 F Temperature Source Oral Pulse Rate [Right] 77 Respiratory Rate 18 Blood Pressure [Right Arm] 134/73 Blood Pressure Mean [Right Arm] 93 02 Sat by Pulse Oximetry 98 Oxygen Delivery Method Room Air Lab Data Lab Results 08/27/25 02:59: WBC 13.3 H, RBC 5.29, Hgb 15.7, Hct 46.4, MCV 87.7, MCH 29.7, MCHC 33.8, RDW 13.0, Plt Count 273, MPV 9.9, Neut % (Auto) 60.7, Lymph % (Auto) 29.2, Adams % (Auto) 8.0, Eos % (Auto) 1.3, Baso % (Auto) 0.3, Neut # (Auto) 8.1 H, Lymph # (Auto) 3.9, Adams # (Auto) 1.1 H, Eos # (Auto) 0.2, Baso # (Auto) 0.0, PT 11.7, INR 1.06, Sodium 136, Potassium 3.8, Chloride 104, Carbon Dioxide 27, Anion Gap 8.8, BUN 16, Creatinine 1.10, Estimated Creat Clear 71, Estimated GFR 69, Est GFR ( Amer) 83, Glucose 111 H, Calcium 9.1, Total Bilirubin 0.6, AST 28, ALT 17, Alkaline Phosphatase 68, Troponin I < 0.01, Total Protein 7.3, Albumin 4.4, Globulin 2.9, Albumin/Globulin Ratio 1.5, Lipase 77 08/27/25 02:59 08/27/25 02:59 Orders (Tests/Meds): ED MEDICATIONS Generic Name Dose Route Start Last Admin Trade Name Freq PRN Reason Stop Dose Admin Lactated Ringer's 1,000 mls @ 999 mls/hr 08/27/25 04:10 08/27/25 04:30 Lactated Ringer's 1000 Ml Bag IV 08/27/25 05:10 999 mls/hr .Q1H1M ONE Administration Discontinued Medications Generic Name Dose Route Start Last Admin Trade Name Alekseyq PRN Reason Stop Dose Admin Lactated Ringer's 1,000 mls @ 999 mls/hr 08/27/25 02:52 08/27/25 04:42 Lactated Ringer's 1000 Ml Bag IV 08/27/25 03:52 Infused .Q1H1M ONE Infusion Iopamidol 80 ml 08/27/25 03:57 08/27/25 03:58 Iopamidol-370 (76%);100ml Bottle IV 08/27/25 03:58 80 ml ONCE ONE Administration Ondansetron HCl 4 mg 08/27/25 02:52 08/27/25 03:04 Ondansetron 4mg/2ml Vial IV 08/27/25 02:53 4 mg ONCE ONE Administration Sodium Chloride 50 ml 08/27/25 03:57 08/27/25 03:58 0.9 % Sodium Chloride 50 Ml Vial IV 08/27/25 03:58 50 ml ONCE ONE Administration Sodium Chloride 10 ml 08/27/25 03:57 08/27/25 03:58 Sodium Chloride 0.9% 10ml Syr (Rad Only) IV 08/27/25 03:58 10 ml ONCE ONE Administration ORDERS Category Date Time Status CT angio abd/pel - GI Bleed Stat Cat Scan 08/27/25 02:52 Completed XR chest portable Stat Exams 08/27/25 02:54 Completed Complete Blood Count Auto Diff Stat Lab 08/27/25 02:59 Completed Comprehensive Metabolic Panel Stat Lab 08/27/25 02:59 Completed Diarrhea 23 Panel, PCR Stat Lab 08/27/25 02:52 Ordered Lipase Stat Lab 08/27/25 02:59 Completed Prothrombin Time INR Stat Lab 08/27/25 02:59 Completed Troponin I Q3H Lab 08/27/25 06:00 Ordered Troponin I Q3H Lab 08/27/25 09:00 Ordered Troponin I Stat Lab 08/27/25 02:59 Completed Urinalysis and Microscopic Stat Lab 08/27/25 02:54 Ordered Medical Decision Narrative: In summary, this 55-year-old male presents to the emergency department today with concerns of nausea, vomiting, 1 episode of diarrhea followed by passing bright red blood per rectum. On initial evaluation patient is hemodynamically stable, afebrile, GCS 15, independently ambulatory into the ER, overall well-appearing, not pale, brisk capillary refill, LifeVest present but otherwise benign cardiopulmonary exam, abdominal exam is nonfocal. Differential diagnosis includes but is not limited to lower GI bleed, I considered upper GI bleed but have low suspicion for this since patient has not had hematemesis and has not had melena. I considered the possibility of viral syndrome, infectious diarrhea, dehydration, electrolyte abnormality, given patient's cardiac history I did consider the possibility of atypical presentation of ACS though I have very low suspicion for this. It is possible patient has malignancy or mass though I consider this to be less likely given his constellation of symptoms. I considered the possibility of hemorrhoids but I believe this is extremely unlikely to cause the bleeding since the bleeding is specifically timed with abdominal cramping and a sensation of needing to have diarrhea. This is not characteristic of hemorrhoids. Based on these concerns, I ordered hematologic and serum labs, cardiac workup, CT angiography GI bleed protocol. I do not believe Hemoccult is indicated since patient has had obvious bright red blood per rectum as indicated by the photo shown to me by family. ECG personally interpreted demonstrates sinus rhythm, occasional PAC, left axis deviation, normal [place] and QTc, rate 87, no STEMI. Poor R wave progression, stable from prior. Morphology overall similar to prior.. Patient received IV fluids and Zofran initially for treatment. Labs reviewed by me demonstrate mild leukocytosis with neutrophil predominance, PT INR normal, lipase normal reassuring against pancreatitis, CMP nonactionable, no electrolyte derangements, no evidence of kidney dysfunction. Troponin undetectably low less than 0.01 significantly reassuring in the absence of patient having any active chest pain and his duration of symptoms being 24 hours. I do not believe serial troponin is indicated at this time. XR personally interpreted demonstrates no acute intrathoracic abnormality, LifeVest in place. See radiology read for final interpretation CT angiography abdomen pelvis personally interpreted does not demonstrate any obvious blush into the lumen, there does appear to be inflammation of the colon. See radiology read for final interpretation. On reassessment patient is tolerating oral intake. He is providing urine sample. UA negative for blood, negative for protein, negative for ketones, negative for findings of infection. I discussed all results with the patient and family at length. I recommended against any further laxative use. We discussed the findings and inflammation without evidence of active blush into the lumen. We discussed that cramping could be worsened because blood is irritating to the GI tract. We discussed the very reassuring lab findings. I recommended he continue taking all home medications as prescribed including the aspirin and prasugrel, while these are mild blood thinners, I believe it is important given his cardiac conditions to continue these medications. I believe the risks of stopping these medications outweigh the benefits at this time given his reassuring workup regarding prior blood per rectum today. I prescribed Zofran for outpatient management of nausea. I gave recommendations on adequate hydration, bland diet, and gave the patient and family explicit instructions on symptomatic monitoring and management as well as instructions for close follow-up with primary care and a referral to general surgery for colonoscopy since patient has never had one. They received strict return precautions for the ER. They all indicated understanding and are agreeable to this. Patient was discharged in stable condition Critical Care Critical Care Time Critical Care Time: No
[2025-08-27] MEDS: LACTATED RINGERS 1000ML 1,000 ML 999 ML IV ×2 (03:04→04:30)
[2025-08-27] MEDS: ONDANSETRON 4MG/2ML VIAL 4 MG IV (03:04)
[2025-08-27 03:10] LABS: Hematocrit 46.4 % (42.0-52.0); Hemoglobin 15.7 g/dL (14.1-18.0); Immature Granulocytes % 0.5 %; Mean Corpuscular HGB Conc 33.8 g/dL (31.8-35.4); Mean Corpuscular Hemoglobin 29.7 pg (27.0-31.2); Mean Corpuscular Volume 87.7 fl (80-94); Nucleated Red Blood Cells % 0 %; Platelet Count 273 K/mm3 (142-424); Red Blood Count 5.29 M/mm3 (4.60-6.20); Red Cell Distribution Width-SD 41.7 fL; White Blood Count 13.3 K/mm3 (4.8-10.8)
[2025-08-27 03:17] LABS: Lipase 77 U/L (23-300)
[2025-08-27 03:18] LABS: INR 1.06 (0.9-1.1); Prothrombin Time 11.7 seconds (10.1-12.5)
[2025-08-27 03:26] LABS: Alanine Aminotransferase 17 U/L (12-78); Albumin Level 4.4 g/dl (3.5-5.0); Albumin/Globulin Ratio 1.5 (1.1-1.8); Alkaline Phosphatase 68 U/L (38-126); Anion Gap 8.8 mEq/L (5-15); Aspartate Amino Transferase 28 U/L (17-59); Bilirubin,Total 0.6 mg/dl (0.2-1.3); Blood Urea Nitrogen 16 mg/dl (9-20); Calcium 9.1 mg/dl (8.4-10.2); Carbon Dioxide 27 mmol/L (22.0-30.0); Chloride 104 mmol/L (98-107); Creatinine Clearance Estimated 71 mL/min (50-200); Creatinine,Serum 1.10 mg/dl (0.66-1.25); Estimated Glomerular Filt Rate 69 ml/min (>60); GFR (African American) 83 ML/MIN (>60); Globulin 2.9 g/dL (1.3-3.2); Glucose 111 mg/dl (74-100); Potassium 3.8 mmoL/L (3.5-5.1); Sodium 136 mmol/L (136-145); Total Protein,Serum 7.3 g/dl (6.3-8.2)
[2025-08-27 03:34] LABS: Troponin I < 0.01 ng/ml (0.00-0.034)
[2025-08-27] MEDS: SODIUM CHLORIDE 0.9% 10ML SYR (RAD ONLY) 10 ML IV (03:58)
[2025-08-27] MEDS: IOPAMIDOL-370 (76%);100ML BOTTLE 80 ML IV (03:58)
[2025-08-27] MEDS: 0.9 % SODIUM CHLORIDE 50 ML VIAL IV (03:58)
[2025-08-27 05:15] LABS: Microscopic, Urine URINE MICROSCOPIC (MICROSCOPIC)
[2025-08-27 05:17] LABS: Bilirubin,Urine Negative (Negative); Color,Urine YELLOW (Yellow); Glucose,Urine (UA) Negative (Negative); Ketones,Urine Negative (Negative); Leukocyte Esterase,Urine Negative (Negative); PH,Urine 7.0 (5.0-8.5); Protein,Urine Negative (Negative); Specific Gravity, Urine <= 1.005 (1.005-1.030); Urobilinogen,Urine 0.2 EU/dl (0.2)
[2025-08-27 05:20] VITALS: BP 140/89; PULSE 86; RESP 20; TEMP 37; O2SAT 100
[2025-08-27 05:22] LABS: RBC,Urine Occasional #/hpf (0-3)
== END 2025-08-27 05:27 | disposition home or self-care (01) ==
PROVIDERS: Emergency Provider Emergency Medicine; PCP Nurse Practitioner Family
DX: K62.5 Hemorrhage of anus and rectum (principal); R11.2 Nausea with vomiting, unspecified; R19.7 Diarrhea, unspecified; I49.1 Atrial premature depolarization
CPT/HCPCS: 51798; 71045; 74174; 80053; 81001; 83690; 84484; 85025; 85610; 93005; 96361; 96374; 99285; J2405; J7120; Q9967